=== PATIENT | female | born 1940 | race Caucasian/White ===

== ENCOUNTER 2018-09-20 13:29 | Inpatient (IN) | payer MEDICARE, SELFPAY ==
[2018-09-20] VITALS (20 sets, daily range): BP systolic 128–157; BP diastolic 60–102; PULSE 90–154; RESP 13–22; TEMP 36.1–36.3; O2SAT 95–98; BMI 30.6; BMI 30.8
--- NOTE | 2018-09-20 14:17 | PC.NURSE ---
just moved, diet changed, reports, after eating developes esophagus pain, worsen when laying down, sxs for 3-4 days. went to doctor, noted her heart rate 140's sent to er. at this time, pain free, denies sxs at this time +abdominal distentions. denies nausea or vomiting. has been taking claritin D.
--- NOTE | 2018-09-20 14:27 | DI.RAD.S_ITS ---
PROCEDURE: XR ACUTE ABDOMEN SERIES INDICATIONS: afib with rvr, epigastric pain after food regularly TECHNIQUE: One view chest and two views of the abdomen were acquired. COMPARISON: None. FINDINGS: Surgical changes and devices: Bilateral hip arthroplasties. Chest: Lungs are clear. Minimal increased pulmonary vascularity. Heart size is enlarged. Trace pleural effusions. No pneumoperitoneum. Abdomen: Bowel gas pattern is normal. No suspicious calcifications. Visualized solid organ contours appear normal. Bones: No suspicious bony lesions. IMPRESSION: No acute abdominal process. Minimal increased pulmonary vascularity is noted suggestive of edema. Dictated by: Yohana Haile M.D. on 09/20/2018 at 15:31 Approved by: Yohana Haile M.D. on 09/20/2018 at 15:32
--- NOTE | 2018-09-20 14:30 | ED.ARRPALP ---
HPI - Arrhythmia/Palpitations General Chief Complaint: Arrhythmia/Palpitations Stated Complaint: Digestive problems, stomach bloating Time Seen by Provider: 09/20/18 14:05 Source: patient and family () Mode of arrival: wheelchair (sent from walk-in clinic) Limitations: no limitations History of Present Illness HPI narrative: 77-year-old female comes with complaint of digestive problems. Patient states that she has been having bloating and epigastric discomfort that sometimes radiates to her back patient states that she has not had any nausea or vomiting she denies any chills or sweats. She does sometimes feel short of breath while she is sleeping and has to sit up which makes her symptoms feel better. She states that the epigastric discomfort prior to radiates up and she says it feels like heartburn. Patient states it typically happens after food patient denies any chest pressure currently or pain. She states she has had some mild constipation but having bowel movements, she denies any issues with urination denies any swelling in her lower extremities. She has her weight has been a little bit up. Patient states she has known arthritis, she had an episode of AFib about a year ago and was hospitalized for a couple days, she was told that it resolved while in the hospital. She was taking too much Claritin D and they suspected that was the cause of her atrial fibrillation. She denies any hypertension, dyslipidemia or diabetes, she denies any other cardiac issues. She has had hip replacement x2, hysterectomy. Denies any tobacco, drinks 1 alcoholic drink daily she has decreased because she was having 2 or 3 but it made her symptoms worse. Denies any illicit. She is supposed to be establishing with Dr. Eaton as a PCP. She is supposed to follow-up with cardiology but has not since her hospital stay. Related Data Home Medications Medication Instructions Recorded Confirmed Headache Relief ([id number]) 1 packet PO PRN PRN 09/20/18 09/20/18 Vitamin C 1 tab PO DAILY 09/20/18 09/20/18 hydrocodone-acetaminophen 1 tab PO 1-2XD PRN 09/20/18 09/20/18 magnesium 1 tab PO DAILY 09/20/18 09/20/18 multivitamin 1 tab PO DAILY 09/20/18 09/20/18 potassium 1 tab PO DAILY 09/20/18 09/20/18 zolpidem 5 mg PO BEDTIME PRN 09/20/18 09/20/18 Allergies Allergy/AdvReac Type Severity Reaction Status Date / Time No Known Drug Allergies Allergy Verified 09/20/18 13:32 Review of Systems Review of Systems ROS Unobtainable: All systems reviewed & are unremarkable except as noted in HPI and below Constitutional Denies chills, Denies fever(s), Denies lethargy and Denies weakness Cardiovascular Reports chest pain (epigastric), Denies diaphoresis, Denies syncope, Denies irregular heart rhythm, Denies leg edema, Denies lightheadedness, Denies radiating jaw, neck or arm pain, Denies palpitations, Reports dyspnea, Denies dyspnea on exertion and Reports orthopnea (starts in middle of night, wakes up from sleep) Respiratory Denies change in phlegm color, Denies chest congestion, Denies cough, Denies excessive phlegm production, Reports dyspnea and Denies dyspnea on exertion Gastrointestinal Gastrointestinal: Reports abdominal pain (epigastric), Denies melena, Reports bloating, Denies hematochezia, Denies change in bowel habits, Reports constipation (mild, having BM's.), Denies early satiety, Reports heartburn, Denies diarrhea, Denies nausea and Denies vomiting Genitourinary Denies hematuria, Denies dysuria and Denies urinary urgency Musculoskeletal Denies back pain Integumentary/Breasts Denies rash Neurologic Denies syncope and Denies weakness Endocrine Denies palpitations [facility] Medical History (Updated 09/20/18 @ 18:18 by Luis Alberto Schaefer MD) Atrial fibrillation (Chronic) Chronic headaches (Chronic) Congestive heart failure (CHF) (Chronic) H/O: hysterectomy (Chronic) Surgical History (Updated 09/20/18 @ 18:19 by Luis Alberto Schaefer MD) History of bilateral hip replacements (Resolved) History of hysterectomy (Resolved) Family History (Updated 09/20/18 @ 17:37 by Luis Alberto Schaefer MD) Mother No problems noted. Father Cancer Social History (Updated 09/20/18 @ 14:35 by Yasmine Parrish DO) marital status: Smoking Status: Unknown if ever smoked alcohol intake: current substance use type: does not use Family History (Updated 09/20/18 @ 17:37 by Luis Alberto Schaefer MD) Mother No problems noted. Father Cancer Social History (Updated 09/20/18 @ 14:35 by Yasmine Parrish DO) marital status: Smoking Status: Unknown if ever smoked alcohol intake: current substance use type: does not use Exam Narrative Exam Narrative: GENERAL: Alert and oriented x three, thin, well-appearing female in no acute distress. HEENT: Head normocephalic, atraumatic, EOMI, pupils reactive, face symmetric, moist mucous membranes NECK: Supple, full range of motion CARDIOVASCULAR: Tachycardic irregularly regular rate and rhythm without murmurs, rubs or gallops. No JVD. No swelling in lower extremities. 2+ pulses bilateral lower extremities. RESPIRATORY: Breath sounds equal bilaterally, no wheezes rales or rhonchi. ABDOMEN: Soft, nontender. Normoactive bowel sounds all 4 quadrants. No guarding or rebound, rigidity, no mass : No CVA tenderness EXTREMITIES: Normal range of motion, no clubbing or edema. Neurovascularly intact NEUROLOGICAL: Cranial nerves II through XII grossly intact. Moving all extremities SKIN: Warm, dry, no petechiae, no rashes or lesions. Initial Vital Signs Initial Vital Signs: Vital Signs Temperature 97.3 F L 09/20/18 13:32 Pulse Rate 154 H 09/20/18 13:32 Respiratory Rate 16 09/20/18 13:32 Blood Pressure 141/90 H 09/20/18 13:32 Pulse Oximetry 96 09/20/18 13:32 Scores CHADS-VASc Congestive heart failure: no Hypertension: no Age 75 years or older: yes Diabetes mellitus: no Stroke, TIA, or TE: no Vascular disease: no Age 65 to 74 years: no Sex category (female): Female CHADS-VASc Score: 3 Course Orders Ordered: ED Orders 09/20/18 13:40 EKG-12 Lead Stat EKG-12 Lead Stat 09/20/18 14:06 B Type Natriuretic Peptide Stat Complete Blood Count AUTO DIFF Stat Comprehensive Metabolic Panel Stat Lipase Stat Partial Thromboplastin Time Stat Prothrombin Time INR Stat Troponin & CK Cardiac Panel Stat 09/20/18 14:27 XR acute abdomen series Stat 09/20/18 17:21 Education, smoking cessation ONGOING 09/20/18 17:25 Thyroid Stimulating Hormone Stat 09/20/18 17:27 Magnesium Stat 09/21/18 Troponin I Routine 09/21/18 17:23 Complete Blood Count AUTO DIFF Stat Comprehensive Metabolic Panel Stat 09/21/18 17:26 EC echo doppler complete Urgent DILTIAZEM (Diltiazem 125 Mg/125 Ml-D5w) 125 mg in 125 mls @ 5 mls/hr IV TITRATE PAUL; Protocol Last Titration: 09/20/18 17:36 Dose: 10 mg/hr, 10 mls/hr Titration: 09/20/18 16:29 Dose: 10 mg/hr, 10 mls/hr Admin: 09/20/18 14:54 Dose: 5 mg/hr, 5 mls/hr Zolpidem Tartrate (Ambien) 5 mg PO BEDTIME PRN PRN Reason: Sleep Discontinued Medications Diltiazem HCl (Cardizem) 10 mg IV NOW ONE Stop: 09/20/18 14:28 Last Admin: 09/20/18 14:33 Dose: 10 mg Sodium Chloride (Normal Saline 0.9%) 1,000 mls @ 1,000 mls/hr IV BOLUS ONE Stop: 09/20/18 15:29 Last Infusion: 09/20/18 15:49 Dose: 0 mls/hr Admin: 09/20/18 14:33 Dose: 1,000 mls/hr Pantoprazole Sodium (Protonix) 20 mg PO NOW ONE Stop: 09/20/18 17:26 Vital Signs - 8 hr 09/20/18 13:32 09/20/18 14:00 09/20/18 14:02 Temperature 97.3 F L Pulse Rate 154 H 139 H 128 H Respiratory Rate 16 17 22 Blood Pressure 141/90 H Blood Pressure [Left Arm] 136/95 H 141/102 H Pulse Oximetry 96 97 97 09/20/18 14:33 09/20/18 14:41 09/20/18 15:18 Temperature Pulse Rate 140 H 129 H 120 H Respiratory Rate 13 16 Blood Pressure 132/97 H Blood Pressure [Left Arm] 135/84 140/102 H Pulse Oximetry 95 96 09/20/18 15:38 09/20/18 16:45 09/20/18 17:59 Temperature 97.0 F L Pulse Rate 116 H 112 H 114 H Respiratory Rate 18 19 20 Blood Pressure 157/82 H Blood Pressure [Left Arm] 138/89 139/99 H Pulse Oximetry 98 96 MDM - Arrhythmia/Palpitations Lab Data Attestation: I reviewed the patient's lab results. Result diagrams: 09/20/18 14:06 09/20/18 14:06 Lab Results 09/20/18 09/20/18 09/20/18 Range/Units 14:06 14:06 14:06 WBC 6.6 (4.5-11.0) X10^3/uL RBC 4.32 (4.0-5.2) X10^6/uL Hgb 13.3 (12.0-16.0) g/dL Hct 40.5 (36-46) % MCV 93.8 (80-100) fL MCH 30.8 (26-34) PG MCHC 32.8 (30-36) % RDW 14.8 (11.6-14.8) % Plt Count 303 (150-400) X10^3/uL Neut % (Auto) 59.9 (50-75) % Lymph % (Auto) 26.9 (25-40) % Collin % (Auto) 9.4 (3-14) % Eos % (Auto) 2.7 (2-4) % Baso % (Auto) 1.1 (0-2) % Neut # (Auto) 3900 (5584-3311) /uL Lymph # (Auto) 1800 (0888-4029) /uL Collin # (Auto) 600 (0-900) /uL Eos # (Auto) 200 (0-450) /uL Baso # (Auto) 100 (0-100) /uL PT 13.2 H (10.1-12.7) SECONDS INR 1.1 (0.9-1.3) APTT 31 (26.4-36.2) SECONDS Sodium 139 (137-145) mmol/L Potassium 4.0 (3.4-5.1) mmol/L Chloride 108 H (98-107) mmol/L Carbon Dioxide 22 (22-32) mmol/L BUN 19 H (7-17) mg/dL Creatinine 0.90 (0.52-1.04) mg/dL Estimated GFR > 60.0 (>60) mL/min BUN/Creatinine Ratio 21.1 (6-22) Glucose 100 (80-110) mg/dL Calcium 9.2 (8.4-10.2) mg/dL Total Bilirubin 0.9 (0.2-1.3) mg/dL AST 56 H (14-36) IU/L ALT 90 H (9-52) IU/L Alkaline Phosphatase 102 (38-126) U/L Total Creatine Kinase 265 H (30-135) U/L CK-MB (CK-2) 1.91 (<2.37) ng/mL CK-MB (CK-2) Rel Index 0.7 L (1.5-5.0) % Troponin I < 0.012 (0.01-0.034) ng/mL B-Natriuretic Peptide (<100) Total Protein 7.0 (6.3-8.2) g/dL Albumin 4.0 (3.5-5.0) g/dL Globulin 3.0 (1.7-4.1) g/dL Albumin/Globulin Ratio 1.3 (1.0-2.8) Lipase 23 (23-300) U/L /18/19 Range/Units 14:06 WBC (4.5-11.0) X10^3/uL RBC (4.0-5.2) X10^6/uL Hgb (12.0-16.0) g/dL Hct (36-46) % MCV (80-100) fL MCH (26-34) PG MCHC (30-36) % RDW (11.6-14.8) % Plt Count (150-400) X10^3/uL Neut % (Auto) (50-75) % Lymph % (Auto) (25-40) % Collin % (Auto) (3-14) % Eos % (Auto) (2-4) % Baso % (Auto) (0-2) % Neut # (Auto) (9050-2765) /uL Lymph # (Auto) (6142-8850) /uL Collin # (Auto) (0-900) /uL Eos # (Auto) (0-450) /uL Baso # (Auto) (0-100) /uL PT (10.1-12.7) SECONDS INR (0.9-1.3) APTT (26.4-36.2) SECONDS Sodium (137-145) mmol/L Potassium (3.4-5.1) mmol/L Chloride (98-107) mmol/L Carbon Dioxide (22-32) mmol/L BUN (7-17) mg/dL Creatinine (0.52-1.04) mg/dL Estimated GFR (>60) mL/min BUN/Creatinine Ratio (6-22) Glucose (80-110) mg/dL Calcium (8.4-10.2) mg/dL Total Bilirubin (0.2-1.3) mg/dL AST (14-36) IU/L ALT (9-52) IU/L Alkaline Phosphatase (38-126) U/L Total Creatine Kinase (30-135) U/L CK-MB (CK-2) (<2.37) ng/mL CK-MB (CK-2) Rel Index (1.5-5.0) % Troponin I (0.01-0.034) ng/mL B-Natriuretic Peptide 408 H (<100) Total Protein (6.3-8.2) g/dL Albumin (3.5-5.0) g/dL Globulin (1.7-4.1) g/dL Albumin/Globulin Ratio (1.0-2.8) Lipase (23-300) U/L Urine Dip Bedside Urine Glucose Negative Bedside Urine Bilirubin - Negative Bedside Urine Ketone +/- 5 Urine Specific Goodrich 1.020 Bedside Urine Occult Blood - Negative Bedside Urine pH 5.5 Bedside Urine Protein - Negative Bedside Urine Urobilinogen - Negative Bedside Urine Nitrite - Negative Bedside Urine Leukocytes - Negative Esterase Imaging Data Acute abdominal x-ray: Radiologist's impression: Chart [facility] Diagn[facility] DATE TYPE STATUS AUTHOR Hx 09/20/18 14:27 Yohana Haile Vanita Harveyleen 77, [id number] REG ER, ED.LOC - Main ED: R10 165.1cm 83.461kg BMI: 30.6kg/m? Arrhythmia/Palpitations Search Chart No Data to Display ONSET Today 15:38 Dagmar Harvey 77 F [address] [address] XRay Report Signed Patient: Dagmar HarveyMR#: [id number] : 1940cct:[id number] Age/Sex: 77 / FDate of Service: 09/20/18 Loc: ED Accession Number: [id number] Procedure: XR acute abdomen series Ordering Provider: Yasmine Parrish D.O. PROCEDURE: XR ACUTE ABDOMEN SERIES INDICATIONS: afib with rvr, epigastric pain after food regularly TECHNIQUE: One view chest and two views of the abdomen were acquired. COMPARISON: None. FINDINGS: Surgical changes and devices: Bilateral hip arthroplasties. Chest: Lungs are clear. Minimal increased pulmonary vascularity. Heart size is enlarged. Trace pleural effusions. No pneumoperitoneum. Abdomen: Bowel gas pattern is normal. No suspicious calcifications. Visualized solid organ contours appear normal. Bones: No suspicious bony lesions. IMPRESSION: No acute abdominal process. Minimal increased pulmonary vascularity is noted suggestive of edema. Dictated by: Yohana Haile M.D. on 09/20/2018 at 15:31 Approved by: Yohana Haile M.D. on 09/20/2018 at 15:32 ECG Data Attestation: I personally reviewed and interpreted this ECG as follows: Prior ECG tracings: not available for review Interpretation: AFib with rapid ventricular response, rate of 143 QRS 89 QTC of 383. No ST elevation appreciated. Mild depression in lateral leads. No prior EKG available. MDM Narrative Medical decision making narrative: Attempting to obtain records from [facility], I suspect patient's symptoms are related to paroxysmal a fib although she may have 2 separate issues with her atrial fibrillation and abdominal issues. Patient was not aware that she was in AFib so she is not a candidate for cardioversion if she is not anticoagulated. She did states that she has been taking a lot of headache medications some sort of good he has powders which have aspirin in them and caffeine. She sometimes takes these 2-3 times daily. Patient continues to be slightly elevated even on Cardizem drip. Patient's lab work otherwise does not show major abnormalities. She has not been hypotensive. I spoke with Dr. Schaefer who accepts for admission. BNP is slightly elevated. Troponin is negative. acute abdominal series is negative. Patient does not appear fluid overloaded on physical exam. Discharge Plan Departure Patient Disposition: Admitted As Inpatient Clinical Impression: Atrial fibrillation with rapid ventricular response Discharge Date/Time: 09/20/18 17:36 Interventions: ED Discharge Assessment Last Done: 09/20/18 17:36 Admit Date/Time: 09/20/18 16:34 Admit Provider: Luis Alberto Schaefer
[2018-09-20] MEDS: SODIUM CHLORIDE 0.9% 1,000 ML 1000 ML IV (14:33)
[2018-09-20] MEDS: dilTIAZem 5 MG/ML SDV 10 MG IV (14:33)
--- NOTE | 2018-09-20 14:38 | ED_ITS ---
HPI - Arrhythmia/Palpitations General Chief Complaint: Arrhythmia/Palpitations Stated Complaint: Digestive problems, stomach bloating Time Seen by Provider: 09/20/18 14:05 Source: patient and family () Mode of arrival: wheelchair (sent from walk-in clinic) Limitations: no limitations History of Present Illness HPI narrative: 77-year-old female comes with complaint of digestive problems. Patient states that she has been having bloating and epigastric discomfort that sometimes radiates to her back patient states that she has not had any nausea or vomiting she denies any chills or sweats. She does sometimes feel short of breath while she is sleeping and has to sit up which makes her symptoms feel better. She states that the epigastric discomfort prior to radiates up and she says it feels like heartburn. Patient states it typically happens after food patient denies any chest pressure currently or pain. She states she has had some mild constipation but having bowel movements, she denies any issues with urination denies any swelling in her lower extremities. She has her weight has been a little bit up. Patient states she has known arthritis, she had an episode of AFib about a year ago and was hospitalized for a couple days, she was told that it resolved while in the hospital. She was taking too much Claritin D and they suspected that was the cause of her atrial fibrillation. She denies any hypertension, dyslipidemia or diabetes, she denies any other cardiac issues. She has had hip replacement x2, hysterectomy. Denies any tobacco, drinks 1 alcoholic drink daily she has decreased because she was having 2 or 3 but it made her symptoms worse. Denies any illicit. She is supposed to be establishing with Dr. Eaton as a PCP. She is supposed to follow-up with cardiology but has not since her hospital stay. Related Data Home Medications Medication Instructions Recorded Confirmed Headache Relief ([id number]) 1 packet PO PRN PRN 09/20/18 09/20/18 Vitamin C 1 tab PO DAILY 09/20/18 09/20/18 hydrocodone-acetaminophen 1 tab PO 1-2XD PRN 09/20/18 09/20/18 magnesium 1 tab PO DAILY 09/20/18 09/20/18 multivitamin 1 tab PO DAILY 09/20/18 09/20/18 potassium 1 tab PO DAILY 09/20/18 09/20/18 zolpidem 5 mg PO BEDTIME PRN 09/20/18 09/20/18 Allergies Allergy/AdvReac Type Severity Reaction Status Date / Time No Known Drug Allergies Allergy Verified 09/20/18 13:32 Review of Systems Review of Systems ROS Unobtainable: All systems reviewed & are unremarkable except as noted in HPI and below Constitutional Denies chills, Denies fever(s), Denies lethargy and Denies weakness Cardiovascular Reports chest pain (epigastric), Denies diaphoresis, Denies syncope, Denies irregular heart rhythm, Denies leg edema, Denies lightheadedness, Denies radiating jaw, neck or arm pain, Denies palpitations, Reports dyspnea, Denies dyspnea on exertion and Reports orthopnea (starts in middle of night, wakes up from sleep) Respiratory Denies change in phlegm color, Denies chest congestion, Denies cough, Denies excessive phlegm production, Reports dyspnea and Denies dyspnea on exertion Gastrointestinal Gastrointestinal: Reports abdominal pain (epigastric), Denies melena, Reports bloating, Denies hematochezia, Denies change in bowel habits, Reports constipation (mild, having BM's.), Denies early satiety, Reports heartburn, Denies diarrhea, Denies nausea and Denies vomiting Genitourinary Denies hematuria, Denies dysuria and Denies urinary urgency Musculoskeletal Denies back pain Integumentary/Breasts Denies rash Neurologic Denies syncope and Denies weakness Endocrine Denies palpitations [facility] Medical History (Updated 09/20/18 @ 18:18 by Luis Alberto Schaefer MD) Atrial fibrillation (Chronic) Chronic headaches (Chronic) Congestive heart failure (CHF) (Chronic) H/O: hysterectomy (Chronic) Surgical History (Updated 09/20/18 @ 18:19 by Luis Alberto Schaefer MD) History of bilateral hip replacements (Resolved) History of hysterectomy (Resolved) Family History (Updated 09/20/18 @ 17:37 by Luis Alberto Schaefer MD) Mother No problems noted. Father Cancer Social History (Updated 09/20/18 @ 14:35 by Yasmine Parrish DO) marital status: Smoking Status: Unknown if ever smoked alcohol intake: current substance use type: does not use Family History (Updated 09/20/18 @ 17:37 by Luis Alberto Schaefer MD) Mother No problems noted. Father Cancer Social History (Updated 09/20/18 @ 14:35 by Yasmine Parrish DO) marital status: Smoking Status: Unknown if ever smoked alcohol intake: current substance use type: does not use Exam Narrative Exam Narrative: GENERAL: Alert and oriented x three, thin, well-appearing female in no acute distress. HEENT: Head normocephalic, atraumatic, EOMI, pupils reactive, face symmetric, moist mucous membranes NECK: Supple, full range of motion CARDIOVASCULAR: Tachycardic irregularly regular rate and rhythm without murmurs, rubs or gallops. No JVD. No swelling in lower extremities. 2+ pulses bilateral lower extremities. RESPIRATORY: Breath sounds equal bilaterally, no wheezes rales or rhonchi. ABDOMEN: Soft, nontender. Normoactive bowel sounds all 4 quadrants. No guardin g or rebound, rigidity, no mass : No CVA tenderness EXTREMITIES: Normal range of motion, no clubbing or edema. Neurovascularly intact NEUROLOGICAL: Cranial nerves II through XII grossly intact. Moving all extremities SKIN: Warm, dry, no petechiae, no rashes or lesions. Initial Vital Signs Initial Vital Signs: Vital Signs Temperature 97.3 F L 09/20/18 13:32 Pulse Rate 154 H 09/20/18 13:32 Respiratory Rate 16 09/20/18 13:32 Blood Pressure 141/90 H 09/20/18 13:32 Pulse Oximetry 96 09/20/18 13:32 Scores CHADS-VASc Congestive heart failure: no Hypertension: no Age 75 years or older: yes Diabetes mellitus: no Stroke, TIA, or TE: no Vascular disease: no Age 65 to 74 years: no Sex category (female): Female CHADS-VASc Score: 3 Course Orders Ordered: ED Orders 09/20/18 13:40 EKG-12 Lead Stat EKG-12 Lead Stat 09/20/18 14:06 B Type Natriuretic Peptide Stat Complete Blood Count AUTO DIFF Stat Comprehensive Metabolic Panel Stat Lipase Stat Partial Thromboplastin Time Stat Prothrombin Time INR Stat Troponin & CK Cardiac Panel Stat 09/20/18 14:27 XR acute abdomen series Stat 09/20/18 17:21 Education, smoking cessation ONGOING 09/20/18 17:25 Thyroid Stimulating Hormone Stat 09/20/18 17:27 Magnesium Stat 09/21/18 Troponin I Routine 09/21/18 17:23 Complete Blood Count AUTO DIFF Stat Comprehensive Metabolic Panel Stat 09/21/18 17:26 EC echo doppler complete Urgent DILTIAZEM (Diltiazem 125 Mg/125 Ml-D5w) 125 mg in 125 mls @ 5 mls/hr IV TITRATE PAUL; Protocol Last Titration: 09/20/18 17:36 Dose: 10 mg/hr, 10 mls/hr Titration: 09/20/18 16:29 Dose: 10 mg/hr, 10 mls/hr Admin: 09/20/18 14:54 Dose: 5 mg/hr, 5 mls/hr Zolpidem Tartrate (Ambien) 5 mg PO BEDTIME PRN PRN Reason: Sleep Discontinued Medications Diltiazem HCl (Cardizem) 10 mg IV NOW ONE Stop: 09/20/18 14:28 Last Admin: 09/20/18 14:33 Dose: 10 mg Sodium Chloride (Normal Saline 0.9%) 1,000 mls @ 1,000 mls/hr IV BOLUS ONE Stop: 09/20/18 15:29 Last Infusion: 09/20/18 15:49 Dose: 0 mls/hr Admin: 09/20/18 14:33 Dose: 1,000 mls/hr Pantoprazole Sodium (Protonix) 20 mg PO NOW ONE Stop: 09/20/18 17:26 Vital Signs - 8 hr 09/20/18 13:32 09/20/18 14:00 09/20/18 14:02 Temperature 97.3 F L Pulse Rate 154 H 139 H 128 H Respiratory Rate 16 17 22 Blood Pressure 141/90 H Blood Pressure [Left Arm] 136/95 H 141/102 H Pulse Oximetry 96 97 97 09/20/18 14:33 09/20/18 14:41 09/20/18 15:18 Temperature Pulse Rate 140 H 129 H 120 H Respiratory Rate 13 16 Blood Pressure 132/97 H Blood Pressure [Left Arm] 135/84 140/102 H Pulse Oximetry 95 96 09/20/18 15:38 09/20/18 16:45 09/20/18 17:59 Temperature 97.0 F L Pulse Rate 116 H 112 H 114 H Respiratory Rate 18 19 20 Blood Pressure 157/82 H Blood Pressure [Left Arm] 138/89 139/99 H Pulse Oximetry 98 96 MDM - Arrhythmia/Palpitations Lab Data Attestation: I reviewed the patient's lab results. Result diagrams: 09/20/18 14:06 09/20/18 14:06 Lab Results 09/20/18 09/20/18 09/20/18 Range/Units 14:06 14:06 14:06 WBC 6.6 (4.5-11.0) X10^3/uL RBC 4.32 (4.0-5.2) X10^6/uL Hgb 13.3 (12.0-16.0) g/dL Hct 40.5 (36-46) % MCV 93.8 (80-100) fL MCH 30.8 (26-34) PG MCHC 32.8 (30-36) % RDW 14.8 (11.6-14.8) % Plt Count 303 (150-400) X10^3/uL Neut % (Auto) 59.9 (50-75) % Lymph % (Auto) 26.9 (25-40) % [place] % (Auto) 9.4 (3-14) % Eos % (Auto) 2.7 (2-4) % Baso % (Auto) 1.1 (0-2) % Neut # (Auto) 3900 (1035-5891) /uL Lymph # (Auto) 1800 (5762-9563) /uL [place] # (Auto) 600 (0-900) /uL Eos # (Auto) 200 (0-450) /uL Baso # (Auto) 100 (0-100) /uL PT 13.2 H (10.1-12.7) SECONDS INR 1.1 (0.9-1.3) APTT 31 (26.4-36.2) SECONDS Sodium 139 (137-145) mmol/L Potassium 4.0 (3.4-5.1) mmol/L Chloride 108 H (98-107) mmol/L Carbon Dioxide 22 (22-32) mmol/L BUN 19 H (7-17) mg/dL Creatinine 0.90 (0.52-1.04) mg/dL Estimated GFR > 60.0 (>60) mL/min BUN/Creatinine Ratio 21.1 (6-22) Glucose 100 (80-110) mg/dL Calcium 9.2 (8.4-10.2) mg/dL Total Bilirubin 0.9 (0.2-1.3) mg/dL AST 56 H (14-36) IU/L ALT 90 H (9-52) IU/L Alkaline Phosphatase 102 (38-126) U/L Total Creatine Kinase 265 H (30-135) U/L CK-MB (CK-2) 1.91 (<2.37) ng/mL CK-MB (CK-2) Rel Index 0.7 L (1.5-5.0) % Troponin I < 0.012 (0.01-0.034) ng/mL B-Natriuretic Peptide (<100) Total Protein 7.0 (6.3-8.2) g/dL Albumin 4.0 (3.5-5.0) g/dL Globulin 3.0 (1.7-4.1) g/dL Albumin/Globulin Ratio 1.3 (1.0-2.8) Lipase 23 (23-300) U/L /18/19 Range/Units 14:06 WBC (4.5-11.0) X10^3/uL RBC (4.0-5.2) X10^6/uL Hgb (12.0-16.0) g/dL Hct (36-46) % MCV (80-100) fL MCH (26-34) PG MCHC (30-36) % RDW (11.6-14.8) % Plt Count (150-400) X10^3/uL Neut % (Auto) (50-75) % Lymph % (Auto) (25-40) % [place] % (Auto) (3-14) % Eos % (Auto) (2-4) % Baso % (Auto) (0-2) % Neut # (Auto) (7165-2677) /uL Lymph # (Auto) (8560-4148) /uL [place] # (Auto) (0-900) /uL Eos # (Auto) (0-450) /uL Baso # (Auto) (0-100) /uL PT (10.1-12.7) SECONDS INR (0.9-1.3) APTT (26.4-36.2) SECONDS Sodium (137-145) mmol/L Potassium (3.4-5.1) mmol/L Chloride (98-107) mmol/L Carbon Dioxide (22-32) mmol/L BUN (7-17) mg/dL Creatinine (0.52-1.04) mg/dL Estimated GFR (>60) mL/min BUN/Creatinine Ratio (6-22) Glucose (80-110) mg/dL Calcium (8.4-10.2) mg/dL Total Bilirubin (0.2-1.3) mg/dL AST (14-36) IU/L ALT (9-52) IU/L Alkaline Phosphatase (38-126) U/L Total Creatine Kinase (30-135) U/L CK-MB (CK-2) (<2.37) ng/mL CK-MB (CK-2) Rel Index (1.5-5.0) % Troponin I (0.01-0.034) ng/mL B-Natriuretic Peptide 408 H (<100) Total Protein (6.3-8.2) g/dL Albumin (3.5-5.0) g/dL Globulin (1.7-4.1) g/dL Albumin/Globulin Ratio (1.0-2.8) Lipase (23-300) U/L Urine Dip Bedside Urine Glucose Negative Bedside Urine Bilirubin - Negative Bedside Urine Ketone +/- 5 Urine Specific [place] 1.020 Bedside Urine Occult Blood - Negative Bedside Urine pH 5.5 Bedside Urine Protein - Negative Bedside Urine Urobilinogen - Negative Bedside Urine Nitrite - Negative Bedside Urine Leukocytes - Negative Esterase Imaging Data Acute abdominal x-ray: Radiologist's impression: Chart [facility] Diagn[facility] DATE TYPE STATUS AUTHOR Hx 09/20/18 14:27 Yohana Haile Vanita Harveyleen 77, [id number] REG ER, ED.LOC - Main ED: R10 165.1cm 83.461kg BMI: 30.6kg/m? Arrhythmia/Palpitations Search Chart No Data to Display ONSET Today 15:38 Dagmar Harvey 77 F [address] [address] XRay Report Signed Patient: Dagmar HarveyMR#: [id number] : 1940cct:[id number] Age/Sex: 77 / FDate of Service: 09/20/18 Loc: ED Accession Number: [id number] Procedure: XR acute abdomen series Ordering Provider: Yasmine Parrish D.O. PROCEDURE: XR ACUTE ABDOMEN SERIES INDICATIONS: afib with rvr, epigastric pain after food regularly TECHNIQUE: One view chest and two views of the abdomen were acquired. COMPARISON: None. FINDINGS: Surgical changes and devices: Bilateral hip arthroplasties. Chest: Lungs are clear. Minimal increased pulmonary vascularity. Heart size is enlarged. Trace pleural effusions. No pneumoperitoneum. Abdomen: Bowel gas pattern is normal. No suspicious calcifications. Visualized solid organ contours appear normal. Bones: No suspicious bony lesions. IMPRESSION: No acute abdominal process. Minimal increased pulmonary vascularity is noted suggestive of edema. Dictated by: Yohana Haile M.D. on 09/20/2018 at 15:31 Approved by: Yohana Haile M.D. on 09/20/2018 at 15:32 ECG Data Attestation: I personally reviewed and interpreted this ECG as follows: Prior ECG tracings: not available for review Interpretation: AFib with rapid ventricular response, rate of 143 QRS 89 QTC of 383. No ST elevation appreciated. Mild depression in lateral leads. No prior EKG available. MDM Narrative Medical decision making narrative: Attempting to obtain records from [facility], I suspect patient's symptoms are related to paroxysmal a fib although she may have 2 separate issues with her atrial fibrillation and abdominal issues. Patient was not aware that she was in AFib so she is not a candidate for cardioversion if she is not anticoagulated. She did states that she has been taking a lot of headache medications some sort of good he has powders which have aspirin in them and caffeine. She sometimes takes these 2-3 times daily. Patient continues to be slightly elevated even on Cardizem drip. Patient's lab work otherwise does not show major abnormalities. She has not been hypotensive. I spoke with Dr. Schaefer who accepts for admission. BNP is slightly elevated. Troponin is negative. acute abdominal series is negative. Patient does not appear fluid overloaded on physical exam. Discharge Plan Departure Patient Disposition: Admitted As Inpatient Clinical Impression: Atrial fibrillation with rapid ventricular response Discharge Date/Time: 09/20/18 17:36 Interventions: ED Discharge Assessment Last Done: 09/20/18 17:36 Admit Date/Time: 09/20/18 16:34 Admit Provider: Luis Alberto Schaefer
[2018-09-20 14:40] LABS: Add Manual Diff / Slide Review NO; Basophils Absolute Auto 100 /uL (0-100); Basophils Percent Auto 1.1 % (0-2); Eosinophils Absolute Auto 200 /uL (0-450); Eosinophils Percent Auto 2.7 % (2-4); Hematocrit 40.5 % (36-46); Hemoglobin 13.3 g/dL (12.0-16.0); Lymphocytes Absolute Auto 1800 /uL (1100-4500); Lymphocytes Percent Auto 26.9 % (25-40); Mean Corpuscular HGB Conc 32.8 % (30-36); Mean Corpuscular Hemoglobin 30.8 PG (26-34); Mean Corpuscular Volume 93.8 fL (80-100); Monocytes Absolute Auto 600 /uL (0-900); Monocytes Percent Auto 9.4 % (3-14); Neutrophils Absolute Auto 3900 /uL (1500-7000); Neutrophils Percent Auto 59.9 % (50-75); Platelet Count 303 X10^3/uL (150-400); Red Blood Cell Count 4.32 X10^6/uL (4.0-5.2); Red Cell Distribution Width 14.8 % (11.6-14.8); White Blood Cell Count 6.6 X10^3/uL (4.5-11.0)
[2018-09-20 14:42] LABS: INR 1.1 (0.9-1.3); Prothrombin Time 13.2 SECONDS (10.1-12.7)
[2018-09-20 14:45] LABS: PTT Partial Thromboplastin Tim 31 SECONDS (26.4-36.2)
[2018-09-20 14:51] LABS: Alanine Aminotransferase 90 IU/L (9-52); Albumin Globulin Ratio 1.3 (1.0-2.8); Alkaline Phosphatase 102 U/L (38-126); Aspartate Aminotransferase 56 IU/L (14-36); BUN Creatinine Ratio 21.1 (6-22); Bilirubin Total 0.9 mg/dL (0.2-1.3); Blood Urea Nitrogen 19 mg/dL (7-17); Calcium 9.2 mg/dL (8.4-10.2); Carbon Dioxide 22 mmol/L (22-32); Chloride 108 mmol/L (98-107); Creatine Kinase 265 U/L (30-135); Estimated Glomerular Filt Rate > 60.0 mL/min (>60); Glucose 100 mg/dL (80-110); HEMOLYSIS < 15 (0-50); Lipase 23 U/L (23-300); Sodium 139 mmol/L (137-145)
[2018-09-20] MEDS: DILTIAZEM 125 MG/125 ML PIGGYBACK IV (14:54)
[2018-09-20 15:00] LABS: B Type Natriuretic Peptide 408 (<100)
[2018-09-20 15:02] LABS: Troponin I < 0.012 ng/mL (0.01-0.034)
--- NOTE | 2018-09-20 15:16 | PC.NURSE ---
bc headache powder took 3 , yesterday, then heart racing.
[2018-09-20 15:19] LABS: CKMB % Relative Index 0.7 % (1.5-5.0); Creatine Kinase MB 1.91 ng/mL (<2.37)
--- NOTE | 2018-09-20 15:39 | PC.NURSE ---
continue recieving diltiazem drip at 5mg/hr via pump, along with normal saline
--- NOTE | 2018-09-20 17:28 | P.HP_ITS ---
History of Present Illness Date Patient Seen: 09/20/18 Time Patient Seen: 17:28 Chief complaint: Digestive problems, stomach bloating Narrative: Dagmar Chavarria is a 77 y/o F that presents to the ED after several days of stomach discomfort. The stomach discomfort [place] and is localized to the epigastrium/substernal region. She attributes the abdominal discomfort to poor dieting, a recent consumption of excess caffeine supplements, and additionally to her stressful lifestyle. The discomfort is increased after consumption of meals, though is generally present all the time. She says that the discomfort is difficult to qualify, but feels similar to having the flu. She decided to come in today due to an increase in symptoms over the last 24 hours. She is also acutely aware that she has back pain that has arisen during her stay in the ED. Current chest X ray has increased pulmonary markings suggestive of edema and an enlarged cardiac silhouette. Her EKG today could not be found in the online [facility] but was described as not showing any significant ischemic changes. She was hospitalized at [facility] on the February due to similar issues. Notes from the hospital state that she had acute systolic heart failure with an EF of 25-30%, dilated cardiomyopathy, Atrial fibrillation and a PE. Her records state that she was cardioverted during her stay. There was also mention of blood clots present in the [facility] so she was given Eliquis. She did not take the prescribed medications that were given to her, including anticoagulation, due to her great distrust in the medical system and believes that her condition can be managed naturally. LIZETTE guided cardioversion was done but AF returned that night. It is assumed from her memory/current attitude that the outpatient ischemia evaluation that was planned did not occur. Patient History Medical History (Updated 09/20/18 @ 18:18 by Luis Alberto Schaefer MD) Atrial fibrillation (Chronic) Chronic headaches (Chronic) Congestive heart failure (CHF) (Chronic) H/O: hysterectomy (Chronic) Surgical History (Updated 09/20/18 @ 18:19 by Luis Alberto Schaefer MD) History of bilateral hip replacements (Resolved) History of hysterectomy (Resolved) Family History (Updated 09/20/18 @ 17:37 by Luis Alberto Schaefer MD) Mother No problems noted. Father Cancer Social History (Updated 09/20/18 @ 14:35 by Yasmine Parrish DO) marital status: Smoking Status: Unknown if ever smoked alcohol intake: current substance use type: does not use Family & Social History Family History (Updated 09/20/18 @ 17:37 by Luis Alberto Schaefer MD) Mother No problems noted. 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 Her son lives in [facility]. PCP: Dr. Eaton at [facility] Safety & Behavioral: Feels Safe in Current Yes Environment Been Physically Hurt or No Threatened By a Person Tobacco & Substance use: Smoking Status None alcohol intake current, white wine daily alcohol intake frequency 0-2 drinks per day Substance Use Type does not use Comment: Power of workers compensation attorney: Jasvir Jrmiley () Meds Home Medications Medication Instructions Recorded Confirmed Type Headache Relief ([id number]) 1 packet PO PRN PRN 09/20/18 09/20/18 History Vitamin C 1 tab PO DAILY 09/20/18 09/20/18 History hydrocodone-acetaminophen 1 tab PO 1-2XD PRN 09/20/18 09/20/18 History magnesium 1 tab PO DAILY 09/20/18 09/20/18 History multivitamin 1 tab PO DAILY 09/20/18 09/20/18 History potassium 1 tab PO DAILY 09/20/18 09/20/18 History zolpidem 5 mg PO BEDTIME PRN 09/20/18 09/20/18 History Allergies Allergy/AdvReac Type Severity Reaction Status Date / Time No Known Drug Allergies Allergy Verified 09/20/18 13:32 Review of Systems Constitutional Constitutional: Denies chills, Denies excessive sweating, Denies fever(s), Reports headache(s) and Reports poor appetite Eyes Eyes: Denies change in vision ENT Ears, Nose, Mouth, and Throat: No abnormal hearing, Yes headache(s), No throat swelling and No tongue swelling Cardiovascular Cardiovascular: Denies chest pain, Denies chest pain at rest, Denies chest pain with activity, Denies foot swelling, Denies leg swelling, Denies radiating jaw, neck or arm pain and Denies shortness of breath Respiratory Respiratory: Denies chest congestion, Denies cough and Denies dyspnea Gastrointestinal Gastrointestinal: Reports abdominal pain, Denies loose stools, Reports nausea, Denies vomiting and Denies hematemesis Musculoskeletal Musculoskeletal: Reports back pain, Denies myalgias and Denies tingling Integumentary/Breasts Skin/Breast: Denies bleeding lesions, Denies erythema and Denies sores Neurologic Neurologic: Denies abnormal hearing, Reports headache(s), Denies seizure-like activity and Denies tingling Psychiatric Psychiatric: Reports anxiety Endocrine Endocrine: Denies excessive sweating Allergic/Immunologic Allergic/Immunologic: Denies throat swelling and Denies tongue swelling Exam Vital Signs (past 8 hours): - 09/20/18 13:32 09/20/18 14:00 09/20/18 14:02 Temperature 97.3 F L Pulse Rate 154 H 139 H 128 H Respiratory Rate 16 17 22 Blood Pressure 141/90 H Blood Pressure [Left Arm] 136/95 H 141/102 H Pulse Oximetry 96 97 97 09/20/18 14:33 09/20/18 14:41 09/20/18 15:18 Temperature Pulse Rate 140 H 129 H 120 H Respiratory Rate 13 16 Blood Pressure 132/97 H Blood Pressure [Left Arm] 135/84 140/102 H Pulse Oximetry 95 96 09/20/18 15:38 09/20/18 16:45 Temperature Pulse Rate 116 H 112 H Respiratory Rate 18 19 Blood Pressure Blood Pressure [Left Arm] 138/89 139/99 H Pulse Oximetry 98 Oxygen Delivery Method Room Air Const General: acute distress and anxious Nutritional Appearance: average body habitus Orientation: alert, awake and oriented x3 Other: Patient is easily flustered when talking about her medical history and family situation and skeptical about speaking to doctors. [facility] Head: normocephalic and atraumatic Ears: hearing grossly normal bilaterally and external ears normal Nose: external nose normal Face and sinus: normal facial exam Mouth: oral mucosae normal Teeth and gingiva: dentition normal Throat: posterior oropharynx normal Eyes General: appearance normal, both eyes and all related structures Alignment and Position: alignment normal Periorbital: periorbital findings normal Eyelids: eyelids normal Conjunctivae: conjunctivae normal Sclera: sclerae normal Cornea: corneas normal Pupils: PERRL EOM: EOM intact bilaterally Direct ophthalmoscopy: normal light reflex Neck Neck: normal visual inspection, full ROM, supple and No anterior neck swelling Thyroid: thyroid normal Lymphatic: No lymphedema Chest Chest: normal inspection of the chest, No mass and No tenderness Resp Effort & Inspection: normal respiratory effort, able to speak in complete sentences, no respiratory distress and not tachypneic Auscultation: clear to auscultation bilaterally Cardio Palpation: normal PMI Rate: regular rate Rhythm: abnormal rhythm irregularly irregular Heart Sounds: S1 normal and S2 normal GI Inspection: normal to inspection and non-distended Palpation: soft, hepatomegaly and tender (tender to palpation in all four quadrants) Auscultation: normal bowel sounds Back/Spine/Pelvis Back: normal to inspection Cervical Spine: normal cervical lordosis Thoracic/Lumbar Spine: thoracic and lumbar spine normal to inspection Skin General: no rashes or lesions noted and No jaundice Lesions: no lesions Rashes: no rashes Wounds: no wounds Hair: normal Nails: normal Neuro General: alert, awake and oriented x3 Cranial Nerves: CN's II-XI intact bilaterally, EOM intact bilaterally and tongue midline Cognition: normal cognition Speech: speech normal Extrem General: normal to inspection and no calf tenderness Right upper extremity: normal to inspection and normal capillary refill Left upper extremity: normal to inspection and normal capillary refill Right lower extremity: normal to inspection Left lower extremity: normal to inspection Other: No pedal edema noted on b/l lower extremities. Psych Appearance: grossly normal Mental Status: mental status grossly normal Speech and Movement: agitated and restless Mood: anxious mood, angry and irritable mood Attitude: other (Refuses to answer particular questions. She is guarded in her responses. ) Thought Process: normal Thought Content: normal Judgment: judgment good Objective Labs Result Diagrams: 09/20/18 14:06 09/20/18 14:06 Labs: Laboratory Results - last 24 hr 09/20/18 09/20/18 09/20/18 14:06 14:06 14:06 WBC 6.6 RBC 4.32 Hgb 13.3 Hct 40.5 MCV 93.8 MCH 30.8 MCHC 32.8 RDW 14.8 Plt Count 303 Neut % (Auto) 59.9 Lymph % (Auto) 26.9 [place] % (Auto) 9.4 Eos % (Auto) 2.7 Baso % (Auto) 1.1 Neut # (Auto) 3900 Lymph # (Auto) 1800 [place] # (Auto) 600 Eos # (Auto) 200 Baso # (Auto) 100 PT 13.2 H INR 1.1 APTT 31 Sodium 139 Potassium 4.0 Chloride 108 H Carbon Dioxide 22 BUN 19 H Creatinine 0.90 Estimated GFR > 60.0 BUN/Creatinine Ratio 21.1 Glucose 100 Calcium 9.2 Total Bilirubin 0.9 AST 56 H ALT 90 H Alkaline Phosphatase 102 Total Creatine Kinase 265 H CK-MB (CK-2) 1.91 CK-MB (CK-2) Rel Index 0.7 L Troponin I < 0.012 B-Natriuretic Peptide Total Protein 7.0 Albumin 4.0 Globulin 3.0 Albumin/Globulin Ratio 1.3 Lipase 23 09/20/18 14:06 WBC RBC Hgb Hct MCV MCH MCHC RDW Plt Count Neut % (Auto) Lymph % (Auto) [place] % (Auto) Eos % (Auto) Baso % (Auto) Neut # (Auto) Lymph # (Auto) [place] # (Auto) Eos # (Auto) Baso # (Auto) PT INR APTT Sodium Potassium Chloride Carbon Dioxide BUN Creatinine Estimated GFR BUN/Creatinine Ratio Glucose Calcium Total Bilirubin AST ALT Alkaline Phosphatase Total Creatine Kinase CK-MB (CK-2) CK-MB (CK-2) Rel Index Troponin I B-Natriuretic Peptide 408 H Total Protein Albumin Globulin Albumin/Globulin Ratio Lipase Assessment & Plan Assessment & Plan narrative: Atrial Fibrillation with RVR -Rate control will be continued tonight on a Diltiazem drip -She can probably be converted to oral beta blockers tomorrow -if not responding then she may need Amiodarone loading similar to what was given at [facility] last year. -TSH and Mg levels are pending -She has known cardiomyopathy and atrial clot on prior Afib admission to [facility] -Previous episode of CHF/Afib was thought to be mediated by tacchyarrythmia. With her high Caffeine intake (for migraines) that could be the case again. -Anticoagulate with Lovenox for now. Acute on Chronic Systolic Heart Failure -No significant shortness of breath despite the elevated BNP and the AF-RVR -Dilated Cardiomyopathy with EF of 25-30% last year. This was related to her tachyarrythmia of excess Pseudophedrine intake at that time. She is no longer using that but is using high dose caffeine. -Echocardiogram will be ordered for current status update. -Consider diuretic therapy -Rate control is essential for prevention of symptomatic CHF -her avoidance of cardiology follow up and home diuretic therapy is problematic. -Repeat Troponin in the morning. Elevated LFT -This is most likely a passive congestion response to CHF -Repeat CMP in the morning and consider further liver testing
[2018-09-20] MEDS: PANTOPRAZOLE 20 MG TABLET PO (18:29)
[2018-09-20 19:00] LABS: Magnesium 1.7 mg/dL (1.6-2.3)
[2018-09-20 19:57] LABS: Thyroid Stimulating Hormone 1.16 uIU/mL (0.47-4.68)
[2018-09-20] MEDS: HYDROCODONE/ACET 5/325 TABLET 1 TAB PO (20:11)
[2018-09-20] MEDS: MAGNESIUM SULFATE 2 GM/50 ML PIGGYBACK IV (20:11)
[2018-09-20] MEDS: ENOXAPARIN 80 MG/0.8 ML SYRINGE SUBCUT (20:12)
--- NOTE | 2018-09-20 21:12 | PC.NURSE ---
2100- Patient Hear rate mostly in mid 90's. Diltiazem gtt at 15ml/hr. Patient BP is stable. Patient has fine bibasilar crackles. Denies SOB at rest but is SOB with activity. Voiding using BSC. Magnesium rider up per order. Will monitor.
[2018-09-20] MEDS: ZOLPIDEM 5 MG TABLET PO (22:41)
[2018-09-21] VITALS (7 sets, daily range): BP systolic 116–151; BP diastolic 74–96; PULSE 72–102; RESP 16–22; TEMP 36.2; O2SAT 94–99
[2018-09-21] MEDS: DILTIAZEM 125 MG/125 ML PIGGYBACK 15 MG IV (00:25)
--- NOTE | 2018-09-21 00:51 | PC.NURSE ---
Pt with new persistent cough, unable to lie flat and mild SOB at rest. Lung sounds significant for fine crackles bilaterally. Elder BAORNE notified and updated on patient, orders for lasix received.
[2018-09-21] MEDS: FUROSEMIDE 40 MG/4 ML VIAL IV (00:54)
[2018-09-21] MEDS: HYDROCODONE/ACET 5/325 TABLET 1 TAB PO ×3 (03:00→16:08)
[2018-09-21 05:42] LABS: Magnesium 1.9 mg/dL (1.6-2.3)
[2018-09-21 06:14] LABS: Troponin I < 0.012 ng/mL (0.01-0.034)
[2018-09-21 07:03] LABS: Alanine Aminotransferase 77 IU/L (9-52); Albumin Globulin Ratio 1.4 (1.0-2.8); Alkaline Phosphatase 95 U/L (38-126); Aspartate Aminotransferase 46 IU/L (14-36); BUN Creatinine Ratio 25.7 (6-22); Bilirubin Total 0.8 mg/dL (0.2-1.3); Blood Urea Nitrogen 18 mg/dL (7-17); Calcium 9.2 mg/dL (8.4-10.2); Carbon Dioxide 25 mmol/L (22-32); Chloride 104 mmol/L (98-107); Estimated Glomerular Filt Rate > 60.0 mL/min (>60); Globulin 2.9 g/dL (1.7-4.1); Glucose 120 mg/dL (80-110); HEMOLYSIS < 15 (0-50); Potassium 3.5 mmol/L (3.4-5.1); Sodium 139 mmol/L (137-145); Total Protein 6.9 g/dL (6.3-8.2)
[2018-09-21] MEDS: METOPROLOL IR 25 MG TABLET PO (08:09)
[2018-09-21] MEDS: ACETAMINOPHEN 325 MG TABLET 650 MG PO (08:21)
[2018-09-21] MEDS: ENOXAPARIN 80 MG/0.8 ML SYRINGE SUBCUT (08:21)
--- NOTE | 2018-09-21 11:57 | P.DS_ITS ---
History of Present Illness Chief complaint: Digestive problems, stomach bloating Discharge Providers Date of admission: 09/20/18 16:34 Discharge Date: 09/21/18 Discharge provider: Abner Otoole MD Summary Discharge Diagnosis: One. Atrial fibrillation with rapid ventricular response 2. Chronic systolic heart failure with acute exacerbation Hospital Course: Patient admitted to the hospital with AFib with rapid urbano tricular response and acute systolic heart failure. Patient had been diagnosed a number of months ago awhile at [facility] with systolic heart failure ejection trach fraction 25% along with her atrial fibrillation. She had recently stopped all medications she became discouraged with taking medications and thought she would be better off without taking medications. This episode seems to be triggered by her stopping medications. She was treated with IV Lasix she also received some IV magnesium and she was placed on a diltiazem infusion and then switched to oral metoprolol. This morning she had her 1st dose of metoprolol was taken off the infusion and her heart rate is now about 70-80. The patient is refusing anticoagulation and repeat refusing most medications but I did convince her to take at least the metoprolol and lisinopril for the bare minimum of treating rate control and heart failure. She does have a follow-up with a local physician Dr. Eaton to establish with him and he can talk to her more about other treatments that might be needed for heart failure and anticoagulation for the AFib Status at Discharge Cognitive/behavioral status at discharge: at baseline, oriented Functional status at discharge: independent ambulation Overall status at discharge: patient is back to baseline Time Spent with Patient Greater than 30 minutes Exam Vital Signs (past 8 hours): - 09/21/18 08:00 09/21/18 08:15 Temperature 97.1 F L Pulse Rate 84 Respiratory Rate 16 Blood Pressure 151/74 H Pulse Oximetry 94 98 Oxygen Delivery Method Room Air Oxygen Flow Rate 0 Narrative Exam Narrative: She is awake alert conversant in no acute distress HEENT exam unremarkable Lungs are clear Heart irregular Abdomen soft nontender Extremities no edema Neuro exam unremarkable Objective Labs Result Diagrams: 09/20/18 14:06 09/21/18 05:00 Labs: Laboratory Results - last 24 hr 09/20/18 09/20/18 09/20/18 14:06 14:06 14:06 WBC 6.6 RBC 4.32 Hgb 13.3 Hct 40.5 MCV 93.8 MCH 30.8 MCHC 32.8 RDW 14.8 Plt Count 303 Neut % (Auto) 59.9 Lymph % (Auto) 26.9 [place] % (Auto) 9.4 Eos % (Auto) 2.7 Baso % (Auto) 1.1 Neut # (Auto) 3900 Lymph # (Auto) 1800 [place] # (Auto) 600 Eos # (Auto) 200 Baso # (Auto) 100 PT 13.2 H INR 1.1 APTT 31 Sodium 139 Potassium 4.0 Chloride 108 H Carbon Dioxide 22 BUN 19 H Creatinine 0.90 Estimated GFR > 60.0 BUN/Creatinine Ratio 21.1 Glucose 100 Calcium 9.2 Magnesium Total Bilirubin 0.9 AST 56 H ALT 90 H Alkaline Phosphatase 102 Total Creatine Kinase 265 H CK-MB (CK-2) 1.91 CK-MB (CK-2) Rel Index 0.7 L Troponin I < 0.012 B-Natriuretic Peptide Total Protein 7.0 Albumin 4.0 Globulin 3.0 Albumin/Globulin Ratio 1.3 Lipase 23 TSH Nasal Screen MRSA (PCR) 09/20/18 09/20/18 09/20/18 14:06 17:45 18:45 WBC RBC Hgb Hct MCV MCH MCHC RDW Plt Count Neut % (Auto) Lymph % (Auto) [place] % (Auto) Eos % (Auto) Baso % (Auto) Neut # (Auto) Lymph # (Auto) [place] # (Auto) Eos # (Auto) Baso # (Auto) PT INR APTT Sodium Potassium Chloride Carbon Dioxide BUN Creatinine Estimated GFR BUN/Creatinine Ratio Glucose Calcium Magnesium Total Bilirubin AST ALT Alkaline Phosphatase Total Creatine Kinase CK-MB (CK-2) CK-MB (CK-2) Rel Index Troponin I B-Natriuretic Peptide 408 H Total Protein Albumin Globulin Albumin/Globulin Ratio Lipase TSH 1.16 Nasal Screen MRSA (PCR) Negative for mrsa 09/20/18 09/21/18 09/21/18 18:45 05:00 05:00 WBC RBC Hgb Hct MCV MCH MCHC RDW Plt Count Neut % (Auto) Lymph % (Auto) [place] % (Auto) Eos % (Auto) Baso % (Auto) Neut # (Auto) Lymph # (Auto) [place] # (Auto) Eos # (Auto) Baso # (Auto) PT INR APTT Sodium Potassium Chloride Carbon Dioxide BUN Creatinine Estimated GFR BUN/Creatinine Ratio Glucose Calcium Magnesium 1.7 1.9 Total Bilirubin AST ALT Alkaline Phosphatase Total Creatine Kinase CK-MB (CK-2) CK-MB (CK-2) Rel Index Troponin I < 0.012 B-Natriuretic Peptide Total Protein Albumin Globulin Albumin/Globulin Ratio Lipase TSH Nasal Screen MRSA (PCR) 09/21/18 05:00 WBC RBC Hgb Hct MCV MCH MCHC RDW Plt Count Neut % (Auto) Lymph % (Auto) [place] % (Auto) Eos % (Auto) Baso % (Auto) Neut # (Auto) Lymph # (Auto) [place] # (Auto) Eos # (Auto) Baso # (Auto) PT INR APTT Sodium 139 Potassium 3.5 Chloride 104 Carbon Dioxide 25 BUN 18 H Creatinine 0.70 Estimated GFR > 60.0 BUN/Creatinine Ratio 25.7 H Glucose 120 H Calcium 9.2 Magnesium Total Bilirubin 0.8 AST 46 H ALT 77 H Alkaline Phosphatase 95 Total Creatine Kinase CK-MB (CK-2) CK-MB (CK-2) Rel Index Troponin I B-Natriuretic Peptide Total Protein 6.9 Albumin 4.0 Globulin 2.9 Albumin/Globulin Ratio 1.4 Lipase TSH Nasal Screen MRSA (PCR) Discharge Plan Discharge Plan Patient Disposition: Home Discharge Med Rec/Prescriptions Prescriptions: New lisinopril 5 mg Tablet 5 mg PO DAILY Qty: 30 RF: 4 metoprolol tartrate 25 mg Tablet 25 mg PO BID Qty: 60 RF: 4 Continued hydrocodone-acetaminophen 5-325 mg tablet 1 tab PO 1-2XD PRN (Reason: pain) RF: 0 zolpidem 5 mg tablet 5 mg PO BEDTIME PRN (Reason: Sleep) RF: 0 multivitamin Tablet 1 tab PO DAILY RF: 0 Headache Relief ([id number]) powder 1 packet PO PRN PRN (Reason: Headache) RF: 0 Vitamin C 1 tab PO DAILY RF: 0 magnesium 1 tab PO DAILY RF: 0 potassium 1 tab PO DAILY RF: 0 Follow up/Referrals: Dm Eaton MD [Physician] - 2 Weeks () Provider Discharge Instructions Diet: Diet as Tolerated Activity: as tolerated Visit Report/Discharge Packet Instructions: DI for Heart Failure, DI for Atrial Fibrillation Discharge Data Attending Provider: Luis Alberto Schaefer Admit Date/Time: 09/20/18 16:34
[2018-09-21] MEDS: LISINOPRIL 5 MG TABLET PO (12:17)
--- NOTE | 2018-09-21 13:13 | PC.NURSE ---
Addendum entered by Jesús Regan R.N. 09/21/18 15:07: After receiving orders for one time dose of vicodin for pt c/o headache, pt was noted to be resting comfortably in bed with eyes closed and even/unlabored RR. Vicodin not given at this time. Dr. Otoole was updated. Addendum entered by Jesús Regan R.N. 09/21/18 14:11: Spoke with pt's , Jasvir, via telephone. Provided verbal d/c instructions and education. Jasvir requests that Buffy (friend) be updated on education as well. Per , Buffy is on her way to pick the pt up for d/c. Original Note: Attempted to provide d/c teaching to pt. Pt not receptive at this time. She initially denies pain but then develops mild headache symptoms. She voices concern regarding headache becoming worse and is requesting additional vicodin to help. Educated to medication regimen (dose, frequency, next available dose) and offered tylenol. Pt states tylenol is not effective for her headaches and declines use. She requested Dr. Otoole be notified and requests a prescription for vicodin. Spoke with Dr. Otoole, notified of pt c/o headache. Orders rec'd for one time dose of vicodin. Dr. Otoole instructs pt to obtain rx from PCP. Will update pt/. Placed call to pt's , Jasvir, per pt request to review d/c teaching materials and rx information. [phone]. Left message to return call.
--- NOTE | 2018-09-21 15:24 | CM.DANOTE ---
Discharge Planning/Care Management DCP: assessment: case received, EMR reviewed. Discussed in Team Rounds with hospitalist Dr. Otoole stating pt might d/c today. Met now with pt and her friend Buffy, here to take her home. Introduced self and role. Pt clarifies her situation. She lives at home with her who does have heart disease. She says both of them have been accepted by Dr. Eaton and her first appt to establish as a new patient is October 08. She does admit that she has not had a PCP in some time but I am ready to do this and her friend Buffy is encouraging to same. Both have many questions re the d/c instructions and the recommendations by Dr. Otoole. ESTER Espinosa is preparing to talk with them next. Dr. Otoole has d/c'd pt to home setting and with recommendation for clinic followup. Buffy she she bought an over the counter medication for pt to help her digestive problem. Both are strongly encouraged to discuss this with Jesús as this may interfere with what Dr. Otoole is recommending. They readily agree to do so. Advanced directive, confirm from FAMILY Start: 09/20/18 19:24 Freq: Q24H Status: Active Protocol: Document 09/20/18 19:24 URIEL (Rec: 09/20/18 19:24 [facility] [id number]) Advance Directive, confirm on record Time 19:24 Person contacted Copy received No CM Discharge Assessment Start: 09/21/18 15:23 Freq: Status: Active Protocol: Document 09/21/18 15:23 ITV (Rec: 09/21/18 15:24 ITV [id number]) Discharge Planning Assessment Advance Directives? Yes History Provided By Patient Friend Medical Record Has Patient been admitted in last 30 No days? Prior Living Arrangements House Household Members spouse Independent with ADL's Yes Is patient alert and oriented? Yes Review Status In Process
--- NOTE | 2018-09-21 16:26 | PC.NURSE ---
1600- Discharge instruction given to patient and friend. All questions answered and patient verbalized understanding. IV out and Tele monitor is off. Patient awake alert and oriented at the time of discharge.
--- NOTE | 2018-09-21 17:26 | DI.ECHO.S_ITS ---
[facility] +---------+ : : [address] : : : : [id number] : : : : Phone: [phone]+ Echocardiogram Report + + :Name: WILLIAM NEGRETE Study Date: 09/21/2018 Height: 66 in : :[facility] Exam Location: [facility] Weight: 185 lb : : Gender: Female BSA: 1.9 m2 : :: 1940 Age: 77 yrs BP: 128/90 mmHg: :Reason For Study: Atrial fibrillation : :Ordering Physician: Claribel : :Hospitalist Performed By: Krystin Page : :Referring: Luis Alberto AMARO E : + + Interpretation Summary Left ventricular wall thickness is mildly increased. Left ventricular ejection fraction is estimated to be 50 +/- 5%. There is inferior wall hypokinesis. Both atria are severely dilated. There is mild to moderate mitral regurgitation. There is moderate tricuspid regurgitation. The right ventricular systolic pressure is estimated to be at least 40 mmHg based on an estimated right atrial pressure of 15 mm Hg. Procedure: A two-dimensional transthoracic echocardiogram with color flow and Doppler was performed. The study quality was technically adequate. There is no prior echocardiogram noted for this patient. The patient was in atrial fibrillation with heart rates between 69-90 bpm during the exam. Left Ventricle: The left ventricle is normal in size. Left ventricular wall thickness is mildly increased. Left ventricular ejection fraction is estimated to be 50 +/- 5%. There is inferior wall hypokinesis. Diastolic function could not be accurately assessed due to atrial fibrillation. Right Ventricle: The right ventricle is mildly dilated. Right ventricular systolic function is borderline reduced. Atria: Both atria are severely dilated. There is no Doppler evidence for an interatrial shunt. Mitral Valve: The mitral valve leaflets appear mildly thickened, but open well. There is mild mitral annular calcification. There is mild to moderate mitral regurgitation. Aortic Valve: The aortic valve is trileaflet. The aortic valve opens well. There is trace aortic regurgitation. Tricuspid Valve: The tricuspid valve is normal in structure and function. There is moderate tricuspid regurgitation. The right ventricular systolic pressure is estimated to be at least 40 mmHg based on an estimated right atrial pressure of 15 mm Hg. Pulmonic Valve: The pulmonic valve is not well seen, but is grossly normal. There is trace pulmonic regurgitation. Great Vessels: The aortic root is normal size. The ascending aorta is normal in size. The pulmonary artery is not well visualized, but is probably normal size. The IVC is dilated (diameter is greater than 2.1 cm) and it collapses less than 50% with a sniff. This suggests a high right atrial pressure of 15 mm Hg. Pericardium/ Pleura There is no pericardial effusion. There is no pleural effusion. MMode/2D Measurements & Calculations LVIDd: 4.5 cm Ao root diam: 3.3 cm LVIDs: 3.4 cm asc Aorta Diam: 3.3 cm FS: 24.8 % EPSS: 0.45 cm IVSd: 1.00 cm LVPWd: 1.1 cm LV sepulveda. diameter/BSA (cm/m^2): 2.3 LV sys. diameter/BSA (cm/m^2): 1.7 LA A2 area: 32.8 cm2 RA long axis: 6.2 cm LA A4 area: 30.3 cm2 RA area: 27.0 cm2 LA length (vol): 6.4 cm RA vol: 99.8 ml LA vol: 131.8 ml RA : 51.6 ml/m2 LA vol index: 68.1 ml/m2 IVC diam: 2.4 cm RVD1 (basal): 4.2 cm RVD2 (mid): 3.4 cm TAPSE: 1.4 cm Doppler Measurements & Calculations Ao V2 max: 107.5 cm/sec LVOT Max Juan: 69.1 cm/sec Ao V2 mean: 74.3 cm/sec LV V1 max P.9 mmHg Ao max P.6 mmHg LV V1 VTI: 12.7 cm Ao mean P.5 mmHg sev ratio: 0.58 Ao V2 VTI: 21.8 cm MV E max juan: 92.1 cm/sec TR max juan: 246.7 cm/sec MV P1/2t: 53.4 msec TR max P.5 mmHg PA V2 max: 44.5 cm/sec PA V2 mean: 33.5 cm/sec PA mean P.48 mmHg PA Accel Time: 0.08 sec MV P1/2t max juan: 93.3 cm/sec MVA(P1/2t): 4.1 cm2 Reading Physician:12:57 PM
== END 2018-09-21 16:26 | disposition home or self-care (01) | DRG 308 ==
LOC: ED 15:54 → AC 16:34 → ICU 17:17
PROVIDERS: Nurse Practitioner Adult Health; Admitting Provider Family Medicine; Emergency Provider Emergency Medicine; Visit Provider Family Medicine
DX: I48.2 Chronic atrial fibrillation (principal); I50.23 Acute on chronic systolic (congestive) heart failure; I51.3 Intracardiac thrombosis, not elsewhere classified
CPT/HCPCS: 36415; 36591; 74022; 80053; 81003; 82550; 82553; 83690; 83735; 83880; 84443; 84484; 85025; 85610; 85730; 87797; 93005; 93041; 93306; 96365; 96366; 96376; 99285; J1650; J1940

== ENCOUNTER 2018-09-23 11:11 | Emergency (ER) | payer MEDICARE, SELFPAY ==
[2018-09-20 17:21] VITALS: BMI 30.8
[2018-09-23 11:17] VITALS: BP 112/86; PULSE 102; RESP 15; TEMP 36.8; O2SAT 98; BMI 30.2
--- NOTE | 2018-09-23 11:21 | ED.SOB ---
HPI - SOB/Dyspnea <Cindy Baker PA-C - Last Filed: 09/23/18 16:14> General Chief Complaint: Shortness of Breath/Dyspnea Stated Complaint: SOB, Shoulder down left arm/jaw Time Seen by Provider: 09/23/18 11:21 Source: patient Mode of arrival: ambulatory Limitations: no limitations History of Present Illness This 77-year-old female returns to ED she states secondary to insistence of friends and family who are worried about her. She was discharged from this hospital 2 days ago with atrial fibrillation with RVR along with CHF exacerbation. She states that her chest symptoms, GI upset and breathing have not changed, not feeling any worse since discharge. She is not noting any new pain or swelling in her extremities. She states that she has had a persistent headache since before she came here, mainly across the frontal area. She denies any acute worsening of the headache, states that it has not resolved, does get better temporarily if she takes a [place], but she is hesitant to do that. She was previously taking OTC headache medication with caffeine as needed. She denies any vision change or jaw claudication. She states her ears feel somewhat congested but not painful. She denies any new fever. She states that she thinks headache is due to tension and becomes tearful when discussing her severe stressors including just moving here and trying to care for her ill , which she does not feel like she can handle any longer. She states only new symptom is a rash on her upper thigh/groin area, not painful, noted this last night and she put some cream on it (not sure what the cream was, some type of prescription from previous rash). Rash has not spread today. Related Data Home Medications Medication Instructions Recorded Confirmed Headache Relief ([id number]) 1 packet PO PRN PRN 09/20/18 09/20/18 Vitamin C 1 tab PO DAILY 09/20/18 09/20/18 hydrocodone-acetaminophen 1 tab PO 1-2XD PRN 09/20/18 09/20/18 magnesium 1 tab PO DAILY 09/20/18 09/20/18 multivitamin 1 tab PO DAILY 09/20/18 09/20/18 potassium 1 tab PO DAILY 09/20/18 09/20/18 zolpidem 5 mg PO BEDTIME PRN 09/20/18 09/20/18 Previous Rx's Medication Instructions Recorded lisinopril 5 mg PO DAILY #30 tab 09/21/18 metoprolol tartrate 25 mg PO BID #60 tab 09/21/18 Allergies Allergy/AdvReac Type Severity Reaction Status Date / Time No Known Drug Allergies Allergy Verified 09/23/18 11:17 Review of Systems <Cindy Baker PA-C - Last Filed: 09/23/18 16:14> Review of Systems ROS Unobtainable: All systems reviewed & are unremarkable except as noted in HPI and below PFSH <Cindy Baker PA-C - Last Filed: 09/23/18 16:14> Medical History (Updated 09/23/18 @ 13:34 by Cindy Baker PA-C) Atrial fibrillation (Chronic) Chronic headaches (Chronic) Congestive heart failure (CHF) (Chronic) H/O: hysterectomy (Chronic) Surgical History History of bilateral hip replacements (Resolved) History of hysterectomy (Resolved) Family History (Updated 09/20/18 @ 17:37 by Luis Alberto Schaefer MD) Mother No problems noted. Father Cancer Social History (Updated 09/20/18 @ 14:35 by Yasmine Parrish DO) marital status: household members: spouse Smoking Status: Unknown if ever smoked alcohol intake: current substance use type: does not use Family History (Updated 09/20/18 @ 17:37 by Luis Alberto Schaefer MD) Mother No problems noted. Father Cancer Social History marital status: household members: spouse Smoking Status: Unknown if ever smoked alcohol intake: current substance use type: does not use Exam <Cindy Baker PA-C - Last Filed: 09/23/18 16:14> Narrative Exam Narrative: GENERAL APPEARANCE: Patient sitting comfortably, intermittently tearful HEENT: PERRL, EOMI, TMs dull, intact, normal oropharynx NECK: Supple LUNGS: Clear to auscultation bilaterally. HEART: Rate and rhythm irregular without murmur. Heart rate increases to 130-140 range when patient discusses her stressors and is tearful ABDOMEN: Soft, nontender, nondistended, bowel sounds present x 4 quadrants EXTREMITIES: No edema, no cyanosis, no calf tenderness DERMATOLOGIC: At the bilateral posterior thigh creases there is symmetric erythema with small papular lesions contained within, clearly demarcated NEUROLOGIC: Alert and oriented with normal speech and coordination Initial Vital Signs Initial Vital Signs: Vital Signs Temperature 98.3 F 09/23/18 11:17 Pulse Rate 102 H 09/23/18 11:17 Respiratory Rate 15 09/23/18 11:17 Blood Pressure 112/86 09/23/18 11:17 Pulse Oximetry 98 09/23/18 11:17 <Cole Acevedo DO - Last Filed: 09/23/18 16:35> Initial Vital Signs Initial Vital Signs: Vital Signs Temperature 98.3 F 09/23/18 11:17 Pulse Rate 102 H 09/23/18 11:17 Respiratory Rate 15 09/23/18 11:17 Blood Pressure 112/86 09/23/18 11:17 Pulse Oximetry 98 09/23/18 11:17 Course <Cindy Baker PA-C - Last Filed: 09/23/18 16:14> Additional Information: Patient reported feeling resolution of headache and overall improved after administration of additional dose of metoprolol. Heart rate quickly lori to the 130-140 range when discussing her stressors, suspect this persists at home. Tachycardia resolved at the time of discharge and no significant change in blood pressure, so advised to continue additional metoprolol tomorrow (advised not to take any extra today, but to take 37.5 mg b.i.d. starting tomorrow). Discussed headache likely exacerbated by stressors but also related to the previous frequent use of Excedrin migraine/caffeine medication which she is off of now and also had not been drinking coffee. Advised to follow up with new PCP office this week and given return precautions for ED with which she is agreeable. We were also able to have her see care management and discuss local options for helping with home needs and stress management. Orders Ordered: ED Orders 09/23/18 11:17 EKG-12 Lead Routine 09/23/18 11:41 CT head/brain wo con Stat 09/23/18 11:50 C-Reactive Protein Quant Stat Complete Blood Count AUTO DIFF Stat Comprehensive Metabolic Panel Stat Erythrocyte Sedimentation Rate Stat Troponin & CK Cardiac Panel Stat 09/23/18 13:34 Consult to Toll Gate Keeper Stat Discontinued Medications Metoprolol Tartrate (Lopressor) 25 mg PO NOW ONE Stop: 09/23/18 11:43 Last Admin: 09/23/18 12:01 Dose: 25 mg Vital Signs - 8 hr 09/23/18 11:17 09/23/18 12:11 09/23/18 12:30 Temperature 98.3 F Pulse Rate 102 H 108 H 94 H Respiratory Rate 15 15 17 Blood Pressure 112/86 Blood Pressure [Left Arm] 105/78 116/93 H Pulse Oximetry 98 99 09/23/18 13:30 Temperature Pulse Rate 87 Respiratory Rate 20 Blood Pressure Blood Pressure [Left Arm] 109/73 Pulse Oximetry 98 <Cole Acevedo DO - Last Filed: 09/23/18 16:35> Orders Ordered: ED Orders 09/23/18 11:17 EKG-12 Lead Routine 09/23/18 11:41 CT head/brain wo con Stat 09/23/18 11:50 C-Reactive Protein Quant Stat Complete Blood Count AUTO DIFF Stat Comprehensive Metabolic Panel Stat Erythrocyte Sedimentation Rate Stat Troponin & CK Cardiac Panel Stat 09/23/18 13:34 Consult to Toll Gate Keeper Stat Discontinued Medications Metoprolol Tartrate (Lopressor) 25 mg PO NOW ONE Stop: 09/23/18 11:43 Last Admin: 09/23/18 12:01 Dose: 25 mg Vital Signs - 8 hr 09/23/18 11:17 09/23/18 12:11 09/23/18 12:30 Temperature 98.3 F Pulse Rate 102 H 108 H 94 H Respiratory Rate 15 15 17 Blood Pressure 112/86 Blood Pressure [Left Arm] 105/78 116/93 H Pulse Oximetry 98 99 09/23/18 13:30 Temperature Pulse Rate 87 Respiratory Rate 20 Blood Pressure Blood Pressure [Left Arm] 109/73 Pulse Oximetry 98 MDM - SOB/Dyspnea <Cindy Baker PA-C - Last Filed: 09/23/18 16:14> Lab Data Result diagrams: 09/23/18 11:50 09/23/18 11:50 Lab Results 09/23/18 09/23/18 Range/Units 11:50 11:50 WBC 7.4 (4.5-11.0) X10^3/uL RBC 4.60 (4.0-5.2) X10^6/uL Hgb 14.4 (12.0-16.0) g/dL Hct 42.7 (36-46) % MCV 92.7 (80-100) fL MCH 31.2 (26-34) PG MCHC 33.7 (30-36) % RDW 14.4 (11.6-14.8) % Plt Count 332 (150-400) X10^3/uL Neut % (Auto) 61.0 (50-75) % Lymph % (Auto) 22.4 L (25-40) % Dickinson % (Auto) 11.9 (3-14) % Eos % (Auto) 3.2 (2-4) % Baso % (Auto) 1.5 (0-2) % Neut # (Auto) 4500 (0960-6976) /uL Lymph # (Auto) 1700 (6364-2571) /uL Dickinson # (Auto) 900 (0-900) /uL Eos # (Auto) 200 (0-450) /uL Baso # (Auto) 100 (0-100) /uL ESR 1 (0-20) MM/HR Sodium 138 (137-145) mmol/L Potassium 4.4 (3.4-5.1) mmol/L Chloride 106 (98-107) mmol/L Carbon Dioxide 22 (22-32) mmol/L BUN 32 H (7-17) mg/dL Creatinine 0.80 (0.52-1.04) mg/dL Estimated GFR > 60.0 (>60) mL/min BUN/Creatinine Ratio 40.0 H (6-22) Glucose 102 (80-110) mg/dL Calcium 9.5 (8.4-10.2) mg/dL Total Bilirubin 0.7 (0.2-1.3) mg/dL AST 22 (14-36) IU/L ALT 48 (9-52) IU/L Alkaline Phosphatase 87 (38-126) U/L Total Creatine Kinase 82 (30-135) U/L CK-MB (CK-2) TNP CK-MB (CK-2) Rel Index TNP Troponin I < 0.012 (0.01-0.034) ng/mL C-Reactive Protein 1.0 (<1.0) mg/dL Total Protein 6.9 (6.3-8.2) g/dL Albumin 4.1 (3.5-5.0) g/dL Globulin 2.8 (1.7-4.1) g/dL Albumin/Globulin Ratio 1.5 (1.0-2.8) Imaging Data CT scan - head: Radiologist's impression: [address] [address] [address] Scan Report Signed Patient: Dagmar Harvey [facility]#: [id number] : 2Acct:[id number] Age/Sex: 77 / FDate of Service: 09/23/18 Loc: ED Accession Number: [id number] Procedure: CT head/brain wo con Ordering Provider: Cindy Baker P.A-C PROCEDURE: CT HEAD/BRAIN WO CON INDICATIONS: persistent MENCHACA atypical TECHNIQUE: Noncontrast 4.5 mm thick angled axial sections acquired from the foramen magnum to the vertex, with coronal and sagittal reformats. For radiation dose reduction, the following was used: automated exposure control, adjustment of mA and/or kV according to patient size. COMPARISON: None. FINDINGS: Image quality: Excellent. CSF spaces: Basal cisterns are patent. No extra-axial fluid collections. The ventricles are symmetric in size and shape. A dense focal calcification is present within the falx cerebrum. The pineal gland is heavily calcified. Brain: No intracranial bleeds or masses. There is cerebral volume loss for age, with resultant ventricular and sulcal prominence. There are periventricular and deep white matter chronic small vessel ischemic changes. There is intracranial internal carotid artery atherosclerosis. Skull and face: Calvarium and visualized facial bones appear intact, without suspicious lesions. Sinuses: Visualized sinuses and mastoids are clear. IMPRESSION: 1. No acute intracranial findings. 2. Findings likely associated with chronic microvascular ischemic changes. Dictated by: Juliette Ibarra M.D. on 09/23/2018 at 11:06 Approved by: Juliette Ibarra M.D. on 09/23/2018 at 11:08 ECG Data Attestation: I personally reviewed and interpreted this ECG as follows: (Atrial fibrillation with rate 108, nonspecific ST changes) Prior ECG tracings: available for review <Cole Acevedo DO - Last Filed: 09/23/18 16:35> Lab Data Lab Results 09/23/18 09/23/18 Range/Units 11:50 11:50 WBC 7.4 (4.5-11.0) X10^3/uL RBC 4.60 (4.0-5.2) X10^6/uL Hgb 14.4 (12.0-16.0) g/dL Hct 42.7 (36-46) % MCV 92.7 (80-100) fL MCH 31.2 (26-34) PG MCHC 33.7 (30-36) % RDW 14.4 (11.6-14.8) % Plt Count 332 (150-400) X10^3/uL Neut % (Auto) 61.0 (50-75) % Lymph % (Auto) 22.4 L (25-40) % Dickinson % (Auto) 11.9 (3-14) % Eos % (Auto) 3.2 (2-4) % Baso % (Auto) 1.5 (0-2) % Neut # (Auto) 4500 (0069-8450) /uL Lymph # (Auto) 1700 (2186-0397) /uL Dickinson # (Auto) 900 (0-900) /uL Eos # (Auto) 200 (0-450) /uL Baso # (Auto) 100 (0-100) /uL ESR 1 (0-20) MM/HR Sodium 138 (137-145) mmol/L Potassium 4.4 (3.4-5.1) mmol/L Chloride 106 (98-107) mmol/L Carbon Dioxide 22 (22-32) mmol/L BUN 32 H (7-17) mg/dL Creatinine 0.80 (0.52-1.04) mg/dL Estimated GFR > 60.0 (>60) mL/min BUN/Creatinine Ratio 40.0 H (6-22) Glucose 102 (80-110) mg/dL Calcium 9.5 (8.4-10.2) mg/dL Total Bilirubin 0.7 (0.2-1.3) mg/dL AST 22 (14-36) IU/L ALT 48 (9-52) IU/L Alkaline Phosphatase 87 (38-126) U/L Total Creatine Kinase 82 (30-135) U/L CK-MB (CK-2) TNP CK-MB (CK-2) Rel Index TNP Troponin I < 0.012 (0.01-0.034) ng/mL C-Reactive Protein 1.0 (<1.0) mg/dL Total Protein 6.9 (6.3-8.2) g/dL Albumin 4.1 (3.5-5.0) g/dL Globulin 2.8 (1.7-4.1) g/dL Albumin/Globulin Ratio 1.5 (1.0-2.8) Discharge Plan Departure Patient Disposition: Home Clinical Impression: Atrial fibrillation with RVR Headache Qualifiers: Headache type: new daily persistent Qualified Code(s): G44.52 - New daily persistent headache (NDPH) Discharge Date/Time: 09/23/18 14:17 Interventions: ED Discharge Assessment Last Done: 09/23/18 14:17 Instructions: Tension Headache, DI for Atrial Fibrillation, DI for Headache Activity Restrictions/Additional Instructions: As we talked about, you should return to the emergency department if you have new or acutely worsening symptoms, i.e. more severe headache, difficulty with speech, swallowing, talking or weakness in her extremities, new chest pain or trouble breathing. I suspect that your persistent headache is caused by medication changes including being off of the [id number] headache medicine with caffeine. Please remain off of this as the caffeine could exacerbate your high heart rate from the atrial fibrillation. You can take Tylenol as needed for the headache and for more severe pain take the hydrocodone/acetaminophen instead. Try applying an ice pack on your neck and resting in a dark, quiet room to help the headache. The headache may improve on its own after you have been off of regular medications for some time. For your atrial fibrillation, please start a baby aspirin (81 mg) once daily to help prevent clots and stroke. Take the first dose today. I understand that you have not wanted to take this or other blood thinner medications, but this is at least some amount of protection until you see your new primary care provider and discuss pros and cons and all of the options. Continue your metoprolol and lisinopril that you have started. Since your chest discomfort is better now as well, please increase your metoprolol starting tomorrow morning (not today) to 1-1/2 tabs (37.5 mg) twice daily as this may better control your heart rate. Please call [facility] tomorrow morning and let them know that you were seen here in the emergency department today after just being discharged from the hospital, and we felt you need to follow-up this week. You can keep your appointment with Dr. Eaton for next month, but we would like you to see 1 of the other providers in the interim (let them know that Dr. Otoole discharged you from the hospital in case he is in the office this week). Good luck with your move/transition here and welcome to town! Prescriptions: No Action hydrocodone-acetaminophen 5-325 mg tablet 1 tab PO 1-2XD PRN (Reason: pain) RF: 0 zolpidem 5 mg tablet 5 mg PO BEDTIME PRN (Reason: Sleep) RF: 0 multivitamin Tablet 1 tab PO DAILY RF: 0 Headache Relief ([id number]-iqf) powder 1 packet PO PRN PRN (Reason: Headache) RF: 0 Vitamin C 1 tab PO DAILY RF: 0 magnesium 1 tab PO DAILY RF: 0 potassium 1 tab PO DAILY RF: 0 lisinopril 5 mg Tablet 5 mg PO DAILY Qty: 30 RF: 4 metoprolol tartrate 25 mg Tablet 25 mg PO BID Qty: 60 RF: 4 Referrals: Dm Eaton MD [Physician] - <Cole Acevedo DO - Last Filed: 09/23/18 16:35> Cosign ED Attending Cosignature Attestation: I was immediately available in the department for consultation. Documentation has been reviewed. I agree with assessment and plan.
--- NOTE | 2018-09-23 11:41 | DI.CT.S_ITS ---
PROCEDURE: CT HEAD/BRAIN WO CON INDICATIONS: persistent MENCHACA atypical TECHNIQUE: Noncontrast 4.5 mm thick angled axial sections acquired from the foramen magnum to the vertex, with coronal and sagittal reformats. For radiation dose reduction, the following was used: automated exposure control, adjustment of mA and/or kV according to patient size. COMPARISON: None. FINDINGS: Image quality: Excellent. CSF spaces: Basal cisterns are patent. No extra-axial fluid collections. The ventricles are symmetric in size and shape. A dense focal calcification is present within the falx cerebrum. The pineal gland is heavily calcified. Brain: No intracranial bleeds or masses. There is cerebral volume loss for age, with resultant ventricular and sulcal prominence. There are periventricular and deep white matter chronic small vessel ischemic changes. There is intracranial internal carotid artery atherosclerosis. Skull and face: Calvarium and visualized facial bones appear intact, without suspicious lesions. Sinuses: Visualized sinuses and mastoids are clear. IMPRESSION: 1. No acute intracranial findings. 2. Findings likely associated with chronic microvascular ischemic changes. Dictated by: Juliette Ibarra M.D. on 09/23/2018 at 11:06 Approved by: Juliette Ibarra M.D. on 09/23/2018 at 11:08
--- NOTE | 2018-09-23 11:50 | ED_ITS ---
HPI - SOB/Dyspnea <Cindy Baker PA-C - Last Filed: 09/23/18 16:14> General Chief Complaint: Shortness of Breath/Dyspnea Stated Complaint: SOB, Shoulder down left arm/jaw Time Seen by Provider: 09/23/18 11:21 Source: patient Mode of arrival: ambulatory Limitations: no limitations History of Present Illness This 77-year-old female returns to ED she states secondary to insistence of friends and family who are worried about her. She was discharged from this hospital 2 days ago with atrial fibrillation with RVR along with CHF exacerbation. She states that her chest symptoms, GI upset and breathing have not changed, not feeling any worse since discharge. She is not noting any new pain or swelling in her extremities. She states that she has had a persistent headache since before she came here, mainly across the frontal area. She denies any acute worsening of the headache, states that it has not resolved, does get better temporarily if she takes a Lucile, but she is hesitant to do that. She was previously taking OTC headache medication with caffeine as needed. She denies any vision change or jaw claudication. She states her ears feel somewhat congested but not painful. She denies any new fever. She states that she thinks headache is due to tension and becomes tearful when discussing her severe stressors including just moving here and trying to care for her ill , which she does not feel like she can handle any longer. She states only new symptom is a rash on her upper thigh/groin area, not painful, noted this last night and she put some cream on it (not sure what the cream was, some type of prescription from previous rash). Rash has not spread today. Related Data Home Medications Medication Instructions Recorded Confirmed Headache Relief ([id number]) 1 packet PO PRN PRN 09/20/18 09/20/18 Vitamin C 1 tab PO DAILY 09/20/18 09/20/18 hydrocodone-acetaminophen 1 tab PO 1-2XD PRN 09/20/18 09/20/18 magnesium 1 tab PO DAILY 09/20/18 09/20/18 multivitamin 1 tab PO DAILY 09/20/18 09/20/18 potassium 1 tab PO DAILY 09/20/18 09/20/18 zolpidem 5 mg PO BEDTIME PRN 09/20/18 09/20/18 Previous Rx's Medication Instructions Recorded lisinopril 5 mg PO DAILY #30 tab 09/21/18 metoprolol tartrate 25 mg PO BID #60 tab 09/21/18 Allergies Allergy/AdvReac Type Severity Reaction Status Date / Time No Known Drug Allergies Allergy Verified 09/23/18 11:17 Review of Systems <Cindy Baker PA-C - Last Filed: 09/23/18 16:14> Review of Systems ROS Unobtainable: All systems reviewed & are unremarkable except as noted in HPI and below PFSH <Cindy Baker PA-C - Last Filed: 09/23/18 16:14> Medical History (Updated 09/23/18 @ 13:34 by Cindy Baker PA-C) Atrial fibrillation (Chronic) Chronic headaches (Chronic) Congestive heart failure (CHF) (Chronic) H/O: hysterectomy (Chronic) Surgical History History of bilateral hip replacements (Resolved) History of hysterectomy (Resolved) Family History (Updated 09/20/18 @ 17:37 by Luis Alberto Schaefer MD) Mother No problems noted. Father Cancer Social History (Updated 09/20/18 @ 14:35 by Yasmine Parrish DO) marital status: household members: spouse Smoking Status: Unknown if ever smoked alcohol intake: current substance use type: does not use Family History (Updated 09/20/18 @ 17:37 by Luis Alberto Schaefer MD) Mother No problems noted. Father Cancer Social History marital status: household members: spouse Smoking Status: Unknown if ever smoked alcohol intake: current substance use type: does not use Exam <Cindy Baker PA-C - Last Filed: 09/23/18 16:14> Narrative Exam Narrative: GENERAL APPEARANCE: Patient sitting comfortably, intermittently tearful HEENT: PERRL, EOMI, TMs dull, intact, normal oropharynx NECK: Supple LUNGS: Clear to auscultation bilaterally. HEART: Rate and rhythm irregular without murmur. Heart rate increases to 130-140 range when patient discusses her stressors and is tearful ABDOMEN: Soft, nontender, nondistended, bowel sounds present x 4 quadrants EXTREMITIES: No edema, no cyanosis, no calf tenderness DERMATOLOGIC: At the bilateral posterior thigh creases there is symmetric erythema with small papular lesions contained within, clearly demarcated NEUROLOGIC: Alert and oriented with normal speech and coordination Initial Vital Signs Initial Vital Signs: Vital Signs Temperature 98.3 F 09/23/18 11:17 Pulse Rate 102 H 09/23/18 11:17 Respiratory Rate 15 09/23/18 11:17 Blood Pressure 112/86 09/23/18 11:17 Pulse Oximetry 98 09/23/18 11:17 <Cole Acevedo DO - Last Filed: 09/23/18 16:35> Initial Vital Signs Initial Vital Signs: Vital Signs Temperature 98.3 F 09/23/18 11:17 Pulse Rate 102 H 09/23/18 11:17 Respiratory Rate 15 09/23/18 11:17 Blood Pressure 112/86 09/23/18 11:17 Pulse Oximetry 98 09/23/18 11:17 Course <Cindy Baker PA-C - Last Filed: 09/23/18 16:14> Additional Information: Patient reported feeling resolution of headache and overall improved after administration of additional dose of metoprolol. Heart rate quickly lori to the 130-140 range when discussing her stressors, suspect this persists at home. Tachycardia resolved at the time of discharge and no significant change in blood pressure, so advised to continue additional metoprolol tomorrow (advised not to take any extra today, but to take 37.5 mg b.i.d. starting tomorrow). Discussed headache likely exacerbated by stressors but also related to the previous frequent use of Excedrin migraine/caffeine medication which she is off of now and also had not been drinking coffee. Advised to follow up with new PCP office this week and given return precautions for ED with which she is agreeable. We were also able to have her see care management and discuss local options for helping with home needs and stress management. Orders Ordered: ED Orders 09/23/18 11:17 EKG-12 Lead Routine 09/23/18 11:41 CT head/brain wo con Stat 09/23/18 11:50 C-Reactive Protein Quant Stat Complete Blood Count AUTO DIFF Stat Comprehensive Metabolic Panel Stat Erythrocyte Sedimentation Rate Stat Troponin & CK Cardiac Panel Stat 09/23/18 13:34 Consult to Assembler Brazer Stat Discontinued Medications Metoprolol Tartrate (Lopressor) 25 mg PO NOW ONE Stop: 09/23/18 11:43 Last Admin: 09/23/18 12:01 Dose: 25 mg Vital Signs - 8 hr 09/23/18 11:17 09/23/18 12:11 09/23/18 12:30 Temperature 98.3 F Pulse Rate 102 H 108 H 94 H Respiratory Rate 15 15 17 Blood Pressure 112/86 Blood Pressure [Left Arm] 105/78 116/93 H Pulse Oximetry 98 99 09/23/18 13:30 Temperature Pulse Rate 87 Respiratory Rate 20 Blood Pressure Blood Pressure [Left Arm] 109/73 Pulse Oximetry 98 <Cole Acevedo DO - Last Filed: 09/23/18 16:35> Orders Ordered: ED Orders 09/23/18 11:17 EKG-12 Lead Routine 09/23/18 11:41 CT head/brain wo con Stat 09/23/18 11:50 C-Reactive Protein Quant Stat Complete Blood Count AUTO DIFF Stat Comprehensive Metabolic Panel Stat Erythrocyte Sedimentation Rate Stat Troponin & CK Cardiac Panel Stat 09/23/18 13:34 Consult to Assembler Brazer Stat Discontinued Medications Metoprolol Tartrate (Lopressor) 25 mg PO NOW ONE Stop: 09/23/18 11:43 Last Admin: 09/23/18 12:01 Dose: 25 mg Vital Signs - 8 hr 09/23/18 11:17 09/23/18 12:11 09/23/18 12:30 Temperature 98.3 F Pulse Rate 102 H 108 H 94 H Respiratory Rate 15 15 17 Blood Pressure 112/86 Blood Pressure [Left Arm] 105/78 116/93 H Pulse Oximetry 98 99 09/23/18 13:30 Temperature Pulse Rate 87 Respiratory Rate 20 Blood Pressure Blood Pressure [Left Arm] 109/73 Pulse Oximetry 98 MDM - SOB/Dyspnea <Cindy Baker PA-C - Last Filed: 09/23/18 16:14> Lab Data Result diagrams: 09/23/18 11:50 09/23/18 11:50 Lab Results 09/23/18 09/23/18 Range/Units 11:50 11:50 WBC 7.4 (4.5-11.0) X10^3/uL RBC 4.60 (4.0-5.2) X10^6/uL Hgb 14.4 (12.0-16.0) g/dL Hct 42.7 (36-46) % MCV 92.7 (80-100) fL MCH 31.2 (26-34) PG MCHC 33.7 (30-36) % RDW 14.4 (11.6-14.8) % Plt Count 332 (150-400) X10^3/uL Neut % (Auto) 61.0 (50-75) % Lymph % (Auto) 22.4 L (25-40) % [place] % (Auto) 11.9 (3-14) % Eos % (Auto) 3.2 (2-4) % Baso % (Auto) 1.5 (0-2) % Neut # (Auto) 4500 (3535-2659) /uL Lymph # (Auto) 1700 (2537-2366) /uL [place] # (Auto) 900 (0-900) /uL Eos # (Auto) 200 (0-450) /uL Baso # (Auto) 100 (0-100) /uL ESR 1 (0-20) MM/HR Sodium 138 (137-145) mmol/L Potassium 4.4 (3.4-5.1) mmol/L Chloride 106 (98-107) mmol/L Carbon Dioxide 22 (22-32) mmol/L BUN 32 H (7-17) mg/dL Creatinine 0.80 (0.52-1.04) mg/dL Estimated GFR > 60.0 (>60) mL/min BUN/Creatinine Ratio 40.0 H (6-22) Glucose 102 (80-110) mg/dL Calcium 9.5 (8.4-10.2) mg/dL Total Bilirubin 0.7 (0.2-1.3) mg/dL AST 22 (14-36) IU/L ALT 48 (9-52) IU/L Alkaline Phosphatase 87 (38-126) U/L Total Creatine Kinase 82 (30-135) U/L CK-MB (CK-2) TNP CK-MB (CK-2) Rel Index TNP Troponin I < 0.012 (0.01-0.034) ng/mL C-Reactive Protein 1.0 (<1.0) mg/dL Total Protein 6.9 (6.3-8.2) g/dL Albumin 4.1 (3.5-5.0) g/dL Globulin 2.8 (1.7-4.1) g/dL Albumin/Globulin Ratio 1.5 (1.0-2.8) Imaging Data CT scan - head: Radiologist's impression: [address] [address] [address] Scan Report Signed Patient: Dagmar Harvey [facility]#: [id number] : 2Acct:[id number] Age/Sex: 77 / FDate of Service: 09/23/18 Loc: ED Accession Number: [id number] Procedure: CT head/brain wo con Ordering Provider: Cindy Baker P.A-C PROCEDURE: CT HEAD/BRAIN WO CON INDICATIONS: persistent [place] atypical TECHNIQUE: Noncontrast 4.5 mm thick angled axial sections acquired from the foramen magnum to the vertex, with coronal and sagittal reformats. For radiation dose reduction, the following was used: automated exposure control, adjustment of mA and/or kV according to patient size. COMPARISON: None. FINDINGS: Image quality: Excellent. CSF spaces: Basal cisterns are patent. No extra-axial fluid collections. The ventricles are symmetric in size and shape. A dense focal calcification is present within the falx cerebrum. The pineal gland is heavily calcified. Brain: No intracranial bleeds or masses. There is cerebral volume loss for age, with resultant ventricular and sulcal prominence. There are periventricular and deep white matter chronic small vessel ischemic changes. There is intracranial internal c arotid artery atherosclerosis. Skull and face: Calvarium and visualized facial bones appear intact, without suspicious lesions. Sinuses: Visualized sinuses and mastoids are clear. IMPRESSION: 1. No acute intracranial findings. 2. Findings likely associated with chronic microvascular ischemic changes. Dictated by: Juliette Ibarra M.D. on 09/23/2018 at 11:06 Approved by: Juliette Ibarra M.D. on 09/23/2018 at 11:08 ECG Data Attestation: I personally reviewed and interpreted this ECG as follows: (Atrial fibrillation with rate 108, nonspecific ST changes) Prior ECG tracings: available for review <Cole Acevedo DO - Last Filed: 09/23/18 16:35> Lab Data Lab Results 09/23/18 09/23/18 Range/Units 11:50 11:50 WBC 7.4 (4.5-11.0) X10^3/uL RBC 4.60 (4.0-5.2) X10^6/uL Hgb 14.4 (12.0-16.0) g/dL Hct 42.7 (36-46) % MCV 92.7 (80-100) fL MCH 31.2 (26-34) PG MCHC 33.7 (30-36) % RDW 14.4 (11.6-14.8) % Plt Count 332 (150-400) X10^3/uL Neut % (Auto) 61.0 (50-75) % Lymph % (Auto) 22.4 L (25-40) % [place] % (Auto) 11.9 (3-14) % Eos % (Auto) 3.2 (2-4) % Baso % (Auto) 1.5 (0-2) % Neut # (Auto) 4500 (1408-8072) /uL Lymph # (Auto) 1700 (7344-1541) /uL [place] # (Auto) 900 (0-900) /uL Eos # (Auto) 200 (0-450) /uL Baso # (Auto) 100 (0-100) /uL ESR 1 (0-20) MM/HR Sodium 138 (137-145) mmol/L Potassium 4.4 (3.4-5.1) mmol/L Chloride 106 (98-107) mmol/L Carbon Dioxide 22 (22-32) mmol/L BUN 32 H (7-17) mg/dL Creatinine 0.80 (0.52-1.04) mg/dL Estimated GFR > 60.0 (>60) mL/min BUN/Creatinine Ratio 40.0 H (6-22) Glucose 102 (80-110) mg/dL Calcium 9.5 (8.4-10.2) mg/dL Total Bilirubin 0.7 (0.2-1.3) mg/dL AST 22 (14-36) IU/L ALT 48 (9-52) IU/L Alkaline Phosphatase 87 (38-126) U/L Total Creatine Kinase 82 (30-135) U/L CK-MB (CK-2) TNP CK-MB (CK-2) Rel Index TNP Troponin I < 0.012 (0.01-0.034) ng/mL C-Reactive Protein 1.0 (<1.0) mg/dL Total Protein 6.9 (6.3-8.2) g/dL Albumin 4.1 (3.5-5.0) g/dL Globulin 2.8 (1.7-4.1) g/dL Albumin/Globulin Ratio 1.5 (1.0-2.8) Discharge Plan Departure Patient Disposition: Home Clinical Impression: Atrial fibrillation with RVR Headache Qualifiers: Headache type: new daily persistent Qualified Code(s): G44.52 - New daily persistent headache (NDPH) Discharge Date/Time: 09/23/18 14:17 Interventions: ED Discharge Assessment Last Done: 09/23/18 14:17 Instructions: Tension Headache, DI for Atrial Fibrillation, DI for Headache Activity Restrictions/Additional Instructions: As we talked about, you should return to the emergency department if you have new or acutely worsening symptoms, i.e. more severe headache, difficulty with speech, swallowing, talking or weakness in her extremities, new chest pain or trouble breathing. I suspect that your persistent headache is caused by medication changes including being off of the [id number] headache medicine with caffeine. Please remain off of this as the caffeine could exacerbate your high heart rate from the atrial fibrillation. You can take Tylenol as needed for the headache and for more severe pain take the hydrocodone/acetaminophen instead. Try applying an ice pack on your neck and resting in a dark, quiet room to help the headache. The headache may improve on its own after you have been off of regular medications for some time. For your atrial fibrillation, please start a baby aspirin (81 mg) once daily to help prevent clots and stroke. Take the first dose today. I understand that you have not wanted to take this or other blood thinner medications, but this is at least some amount of protection until you see your new primary care provider and discuss pros and cons and all of the options. Continue your metoprolol and lisinopril that you have started. Since your chest discomfort is better now as well, please increase your metoprolol starting tomorrow morning (not today) to 1-1/2 tabs (37.5 mg) twice daily as this may better control your heart rate. Please call [facility] tomorrow morning and let them know that you were seen here in the emergency department today after just being discharged from the hospital, and we felt you need to follow-up this week. You can keep your appointment with Dr. Eaton for next month, but we would like you to see 1 of the other providers in the interim (let them know that Dr. Otoole discharged you from the hospital in case he is in the office this week). Good luck with your move/transition here and welcome to town! Prescriptions: No Action hydrocodone-acetaminophen 5-325 mg tablet 1 tab PO 1-2XD PRN (Reason: pain) RF: 0 zolpidem 5 mg tablet 5 mg PO BEDTIME PRN (Reason: Sleep) RF: 0 multivitamin Tablet 1 tab PO DAILY RF: 0 Headache Relief (YAZ-ypph-ydn) powder 1 packet PO PRN PRN (Reason: Headache) RF: 0 Vitamin C 1 tab PO DAILY RF: 0 magnesium 1 tab PO DAILY RF: 0 potassium 1 tab PO DAILY RF: 0 lisinopril 5 mg Tablet 5 mg PO DAILY Qty: 30 RF: 4 metoprolol tartrate 25 mg Tablet 25 mg PO BID Qty: 60 RF: 4 Referrals: Dm Eaotn MD [Physician] - <Cole Acevedo DO - Last Filed: 09/23/18 16:35> Cosign ED Attending Cosignature Attestation: I was immediately available in the department for consultation. Documentation has been reviewed. I agree with assessment and plan.
[2018-09-23] MEDS: METOPROLOL IR 25 MG TABLET PO (12:01)
[2018-09-23 12:04] LABS: Add Manual Diff / Slide Review NO; Basophils Absolute Auto 100 /uL (0-100); Basophils Percent Auto 1.5 % (0-2); Eosinophils Absolute Auto 200 /uL (0-450); Eosinophils Percent Auto 3.2 % (2-4); Hematocrit 42.7 % (36-46); Hemoglobin 14.4 g/dL (12.0-16.0); Lymphocytes Absolute Auto 1700 /uL (1100-4500); Lymphocytes Percent Auto 22.4 % (25-40); Mean Corpuscular HGB Conc 33.7 % (30-36); Mean Corpuscular Hemoglobin 31.2 PG (26-34); Mean Corpuscular Volume 92.7 fL (80-100); Monocytes Absolute Auto 900 /uL (0-900); Monocytes Percent Auto 11.9 % (3-14); Neutrophils Absolute Auto 4500 /uL (1500-7000); Platelet Count 332 X10^3/uL (150-400); Red Cell Distribution Width 14.4 % (11.6-14.8); White Blood Cell Count 7.4 X10^3/uL (4.5-11.0)
[2018-09-23 12:11] VITALS: BP 105/78; PULSE 108; RESP 15; O2SAT 99
[2018-09-23 12:20] LABS: Alanine Aminotransferase 48 IU/L (9-52); Albumin 4.1 g/dL (3.5-5.0); Albumin Globulin Ratio 1.5 (1.0-2.8); Alkaline Phosphatase 87 U/L (38-126); Aspartate Aminotransferase 22 IU/L (14-36); Bilirubin Total 0.7 mg/dL (0.2-1.3); Blood Urea Nitrogen 32 mg/dL (7-17); Calcium 9.5 mg/dL (8.4-10.2); Carbon Dioxide 22 mmol/L (22-32); Chloride 106 mmol/L (98-107); Creatine Kinase 82 U/L (30-135); Estimated Glomerular Filt Rate > 60.0 mL/min (>60); Globulin 2.8 g/dL (1.7-4.1); Glucose 102 mg/dL (80-110); HEMOLYSIS < 15 (0-50); Potassium 4.4 mmol/L (3.4-5.1); Sodium 138 mmol/L (137-145); Total Protein 6.9 g/dL (6.3-8.2)
[2018-09-23 12:30] VITALS: BP 116/93; PULSE 94; RESP 17
[2018-09-23 12:30] LABS: Erythrocyte Sedimentation Rate 1 MM/HR (0-20); Troponin I < 0.012 ng/mL (0.01-0.034)
[2018-09-23 13:30] VITALS: BP 109/73; PULSE 87; RESP 20; O2SAT 98
--- NOTE | 2018-09-23 15:52 | CM.SWNOTE ---
Social Work Consult Note: Requested by ABBI Holguin to see Dagmar before her DC from the ED today. Cindy hopeful this PERINATAL TECH can provide some supportive resources for help in the home vs help w/spouse as Dagmar has been tearful in the room explaining how overwhelmed she feels taking care of spouse. Met w/ Dagmar, spouse Jasvir, and their son Henrik and his in ER , explained SW role. This PERINATAL TECH asked Dagmar if she wanted to talk in private w/o her family present ? Dagmar says no, I guess its okay if they stay. This PERINATAL TECH asks both Dagmar and her how it's been going at home lately? Both Dagmar and Jasvir are quite argumentative, Dagmar is passive and Jasvir is very defensive. They recently moved from [place] (where their son still lives) to live in a [place], they do not have family or friends in the area (one grandson in [facility]). Jasvir is recovering from a massive heart attack and then stroke approx 11 years ago and aDgmar has developed heart problems as well. Both will attend cardiac rehab here at soon. Both Dagmar and Jasvir seen to argue back and forth about what they need, Jasvir does not think he or Dagmar need help. Dagmar becomes a little tearful when she says she feels overwhelmed by needing to care for Jasvir like taking off and placing his compression socks. Adult son and DIL are mostly quite throughout his conversation and have no concerns to voice when asked. This PERINATAL TECH spends time in normalizing any feelings of anxiousness both Jasvir and/or Tasha are experiencing in trying to care for each, for themselves, all while adjusting to a new home and community. This PERINATAL TECH offerred the Senior Resource Guide and strongly encouraged Dagmar to write a list of items she would like assist with, that maybe Jasvir can nt help with at this time, and call one of the cg agencies to ask what the cgs can offer, what hours, cost, etc. Then strongly encouraged Dagmar to get to one of the senior centers, [facility] or [facility], the one she feels comfortable with, and ask about resources there, try to stay for lunch and talk with other women who might be going through something similar. Dagmar says she will try. This PERINATAL TECH suggested she and her ask their family for help as needed in organizing the house and garage (mentioned as a stressor for Jasvir) and other chores that are difficult for them to do alone. Dagmar appreciative and denies other needs from this PERINATAL TECH. Dagmar asked about home health, explained she is not homebound at this time and can get out to cardiac rehab, encouraged her to do so, as did family. Updated Cindy on above. Pt may be high risk for readmit w/chest pain/anxiety d/t above factors. Hopefully Dagmar will seek additional supportive in home resources w/assist and encouragement from family. Kirsten Calixto, PERINATAL TECH
== END 2018-09-23 14:17 | disposition home or self-care (01) ==
PROVIDERS: Emergency Provider Internal Medicine
DX: I48.91 Unspecified atrial fibrillation (principal); G44.52 New daily persistent headache (NDPH)
CPT/HCPCS: 36591; 70450; 80053; 82550; 84484; 85025; 85651; 86140; 93005; 99283; 99285

== ENCOUNTER 2018-11-04 09:49 | Inpatient (IN) | payer MEDICARE, SELFPAY ==
[2018-09-20 17:21] VITALS: BMI 30.8
[2018-11-04] VITALS (12 sets, daily range): BP systolic 103–130; BP diastolic 53–92; PULSE 78–122; RESP 16–24; TEMP 36.3–36.8; O2SAT 95–99; BMI 26.6
--- NOTE | 2018-11-04 09:55 | ED_ITS ---
HPI - General Adult General Chief complaint: Shortness of Breath/Dyspnea Stated complaint: sob x12 hours/left knee pain Time Seen by Provider: 11/04/18 09:55 Source: patient Mode of arrival: ambulatory Limitations: no limitations History of Present Illness HPI narrative: Patient is a 77-year-old female here for evaluation of shortness of breath for the past couple days. She denies any lightheadedness, chest pain, palpitations, has not passed out. She does have a history of paroxysmal atrial fibrillation. Is not currently on anticoagulation. Has been taking her medications. States she does not know when she is atrial fibrillation. She is scheduled to see Cardiology within the next 2 months but has not seen them up to this point. She has been admitted in the past for atrial fibrillation. No recent travel. She also describes left knee pain. She states that this is her arthritis that is causing her pain. Related Data Home Medications Medication Instructions Recorded Confirmed Vitamin C 1 tab PO DAILY 09/20/18 09/20/18 hydrocodone-acetaminophen 1 tab PO 1-2XD PRN 09/20/18 11/04/18 magnesium 1 tab PO DAILY 09/20/18 09/20/18 multivitamin 1 tab PO DAILY 09/20/18 11/04/18 potassium 1 tab PO DAILY 09/20/18 09/20/18 zolpidem 5 mg PO BEDTIME PRN 09/20/18 11/04/18 furosemide 40 mg PO DAILY 11/04/18 11/04/18 Previous Rx's Medication Instructions Recorded lisinopril 5 mg PO DAILY #30 tab 09/21/18 metoprolol tartrate 25 mg PO BID #60 tab 09/21/18 Allergies Allergy/AdvReac Type Severity Reaction Status Date / Time No Known Drug Allergies Allergy Verified 09/23/18 11:17 Review of Systems Constitutional Constitutional: Denies chills, Denies fever(s) and Denies headache(s) ENT Ears, Nose, Mouth, and Throat: Denies vertigo, Denies dizziness, Denies headache(s) and Denies disequilibrium Cardiovascular Cardiovascular: Denies chest pain, Denies palpitations, Reports dyspnea and Reports dyspnea on exertion Respiratory Respiratory: Denies cough, Reports dyspnea and Reports dyspnea on exertion Gastrointestinal Gastrointestinal: Denies abdominal pain, Denies nausea and Denies vomiting Musculoskeletal Comments: Left knee pain Integumentary/Breasts Skin/Breast: Denies lesions and Denies rash Neurologic Neurologic: Denies confusion, Denies vertigo, Denies dizziness, Denies headache(s) and Denies disequilibrium Psychiatric Psychiatric: Denies confusion Endocrine Endocrine: Denies palpitations Hematologic/Lymphatic Hematologic/Lymphatic: Denies as per HPI and Denies easy bleeding Allergic/Immunologic Allergic/Immunologic: Denies urticaria PFSH Medical History Atrial fibrillation (Chronic) Chronic headaches (Chronic) Congestive heart failure (CHF) (Chronic) H/O: hysterectomy (Chronic) Family History (Updated 09/20/18 @ 17:37 by Luis Alberto Schaefer MD) Mother No problems noted. Father Cancer Social History marital status: household members: spouse Smoking Status: Never smoker alcohol intake: current substance use type: does not use Exam Initial Vital Signs Initial Vital Signs: Vital Signs Temperature 97.4 F L 11/04/18 10:05 Pulse Rate 114 H 11/04/18 10:05 Respiratory Rate 18 11/04/18 10:05 Blood Pressure 124/82 11/04/18 10:05 Pulse Oximetry 98 11/04/18 10:05 Const General: cooperative, well developed and well groomed Orientation: alert, awake and oriented x3 HENMT Head: normal to inspection and normocephalic Chest Chest: normal inspection of the chest Resp Effort & Inspection: normal respiratory effort Auscultation: clear to auscultation bilaterally Cardio Rate: tachycardic Rhythm: abnormal rhythm Pulses: radial pulses present GI Inspection: non-distended Palpation: soft Skin Lesions: no lesions Rashes: no rashes Neuro General: alert and awake Cognition: normal cognition Speech: speech normal Gait: normal gait Extrem General: normal to inspection, capillary refill normal and No edema Other: No swelling does have tenderness to palpation around her left knee. Psych Appearance: grossly normal and well kempt Scores GCS Kiesha coma scale eye opening: Spontaneous [place] coma scale verbal response: Orientated Kiesha coma scale motor response: Obey commands Kiesha coma scale total score: 15 Course Orders Ordered: ED Orders 11/04/18 09:58 XR chest 1V Stat EKG-12 Lead Stat 11/04/18 10:15 Urine Microscopic Stat 11/04/18 10:29 B Type Natriuretic Peptide Stat Complete Blood Count AUTO DIFF Stat Comprehensive Metabolic Panel Stat Lipase Stat Partial Thromboplastin Time Stat Prothrombin Time INR Stat Thyroid Stimulating Hormone Stat Troponin I Stat Acetaminophen (Tylenol) 650 mg PO Q6HR PRN PRN Reason: As Needed for Fever/Mild Pain Apixaban (Eliquis) 5 mg PO BID PAUL Furosemide (Lasix) 40 mg PO DAILY PAUL Sodium Chloride (Normal Saline 0.9%) 1,000 mls @ 150 mls/hr IV CONT PAUL Last Infusion: 11/04/18 16:14 Dose: 0 mls/hr Documented by: Admin: 11/04/18 10:59 Dose: 150 mls/hr Documented by: MAGALI Metoprolol Tartrate (Lopressor) 25 mg PO BID PAUL Discontinued Medications Hydrocodone Bitart/Acetaminophen ([place] 5/325) 1 tab PO NOW ONE Stop: 11/04/18 11:46 Last Admin: 11/04/18 11:56 Dose: 1 tab Documented by: MAGALI Diltiazem HCl (Cardizem) 10 mg IV NOW ONE Stop: 11/04/18 10:26 Last Admin: 11/04/18 10:57 Dose: 10 mg Documented by: MAGALI Diltiazem HCl (Cardizem) 30 mg PO NOW ONE Stop: 11/04/18 12:04 Last Admin: 11/04/18 12:24 Dose: 30 mg Documented by: MAGALI Furosemide (Lasix) 40 mg IV NOW ONE Stop: 11/04/18 15:57 Last Admin: 11/04/18 16:34 Dose: 40 mg Documented by: DAJUAN Diltiazem HCl 125 mg/ Dextrose 125 mls @ 5 mls/hr IV TITRATE PAUL; Protocol Last Admin: 11/04/18 11:34 Dose: Not Given Documented by: HANS DILTIAZEM (Diltiazem 125 Mg/125 [id number]) 125 mg in 125 mls @ 5 mls/hr IV TITRATE PAUL; Protocol Last Titration: 11/04/18 12:38 Dose: 0 mg/hr, 0 mls/hr Documented by: Admin: 11/04/18 11:06 Dose: 5 mg/hr, 5 mls/hr Documented by: MAGALI Metoprolol Tartrate (Lopressor) 50 mg PO BID PAUL Vital Signs Vital signs: Vital Signs - 8 hr 11/04/18 10:57 11/04/18 11:00 11/04/18 11:30 Pulse Rate 112 H 118 H 98 H Respiratory Rate 24 18 Blood Pressure 103/63 Blood Pressure [Right Arm] 116/92 H 116/92 H Pulse Oximetry 97 95 11/04/18 12:00 11/04/18 13:00 Pulse Rate 85 89 Respiratory Rate 19 16 Blood Pressure Blood Pressure [Right Arm] 118/89 110/67 Pulse Oximetry 96 96 Medical Decision Making Lab Data Lab results reviewed: Yes I reviewed the patient's lab results. Result diagrams: 11/04/18 10:29 11/04/18 10:29 Labs: Lab Results 11/04/18 11/04/18 11/04/18 Range/Units 10:15 10:29 10:29 WBC 6.0 (4.5-11.0) X10^3/uL RBC 4.53 (4.0-5.2) X10^6/uL Hgb 13.9 (12.0-16.0) g/dL Hct 41.5 (36-46) % MCV 91.6 (80-100) fL MCH 30.6 (26-34) PG MCHC 33.4 (30-36) % RDW 14.7 (11.6-14.8) % Plt Count 247 (150-400) X10^3/uL Neut % (Auto) 62.5 (50-75) % Lymph % (Auto) 25.7 (25-40) % [place] % (Auto) 9.5 (3-14) % Eos % (Auto) 1.1 L (2-4) % Baso % (Auto) 1.2 (0-2) % Neut # (Auto) 3700 (1657-1763) /uL Lymph # (Auto) 1500 (9097-7550) /uL [place] # (Auto) 600 (0-900) /uL Eos # (Auto) 100 (0-450) /uL Baso # (Auto) 100 (0-100) /uL PT 13.6 H (10.1-12.7) SECONDS INR 1.2 (0.9-1.3) APTT 30 (26.4-36.2) SECONDS Sodium (137-145) mmol/L Potassium (3.4-5.1) mmol/L Chloride (98-107) mmol/L Carbon Dioxide (22-32) mmol/L BUN (7-17) mg/dL Creatinine (0.52-1.04) mg/dL Estimated GFR (>60) mL/min BUN/Creatinine Ratio (6-22) Glucose (80-110) mg/dL Calcium (8.4-10.2) mg/dL Total Bilirubin (0.2-1.3) mg/dL AST (14-36) IU/L ALT (9-52) IU/L Alkaline Phosphatase (38-126) U/L Troponin I (0.01-0.034) ng/mL B-Natriuretic Peptide 626 H (<100) Total Protein (6.3-8.2) g/dL Albumin (3.5-5.0) g/dL Globulin (1.7-4.1) g/dL Albumin/Globulin Ratio (1.0-2.8) Lipase (23-300) U/L TSH (0.47-4.68) uIU/mL Urine RBC 0-1/hpf (0-5/HPF) Urine WBC 0-1/hpf (0-5/HPF) Ur Squamous Epith Cells 1-5 /hpf (0-5/HPF) Urine Bacteria Many (>30) H (None) Ur Culture Indicated? Cult not indicated 11/04/18 11/04/18 Range/Units 10:29 10:29 WBC (4.5-11.0) X10^3/uL RBC (4.0-5.2) X10^6/uL Hgb (12.0-16.0) g/dL Hct (36-46) % MCV (80-100) fL MCH (26-34) PG MCHC (30-36) % RDW (11.6-14.8) % Plt Count (150-400) X10^3/uL Neut % (Auto) (50-75) % Lymph % (Auto) (25-40) % [place] % (Auto) (3-14) % Eos % (Auto) (2-4) % Baso % (Auto) (0-2) % Neut # (Auto) (3638-9311) /uL Lymph # (Auto) (1266-4299) /uL [place] # (Auto) (0-900) /uL Eos # (Auto) (0-450) /uL Baso # (Auto) (0-100) /uL PT (10.1-12.7) SECONDS INR (0.9-1.3) APTT (26.4-36.2) SECONDS Sodium 139 (137-145) mmol/L Potassium 4.2 (3.4-5.1) mmol/L Chloride 107 (98-107) mmol/L Carbon Dioxide 23 (22-32) mmol/L BUN 20 H (7-17) mg/dL Creatinine 0.70 (0.52-1.04) mg/dL Estimated GFR > 60.0 (>60) mL/min BUN/Creatinine Ratio 28.6 H (6-22) Glucose 120 H (80-110) mg/dL Calcium 9.4 (8.4-10.2) mg/dL Total Bilirubin 1.2 (0.2-1.3) mg/dL AST 144 H (14-36) IU/L ALT 139 H (9-52) IU/L Alkaline Phosphatase 118 (38-126) U/L Troponin I < 0.012 (0.01-0.034) ng/mL B-Natriuretic Peptide (<100) Total Protein 6.8 (6.3-8.2) g/dL Albumin 4.0 (3.5-5.0) g/dL Globulin 2.8 (1.7-4.1) g/dL Albumin/Globulin Ratio 1.4 (1.0-2.8) Lipase 23 (23-300) U/L TSH 1.07 (0.47-4.68) uIU/mL Urine RBC (0-5/HPF) Urine WBC (0-5/HPF) Ur Squamous Epith Cells (0-5/HPF) Urine Bacteria (None) Ur Culture Indicated? Urine Dip Bedside Urine Glucose Negative Bedside Urine Bilirubin - Negative Bedside Urine Ketone - Negative Urine Specific [place] 1.020 Bedside Urine Occult Blood + Bedside Urine pH 5.5 Bedside Urine Protein +/- 15 Bedside Urine Urobilinogen +/- 1mg Bedside Urine Nitrite - Negative Bedside Urine Leukocytes - Negative Esterase Point of care testing: Urine Dip Bedside Urine Glucose Negative Bedside Urine Bilirubin - Negative Bedside Urine Ketone - Negative Urine Specific [place] 1.020 Bedside Urine Occult Blood + Bedside Urine pH 5.5 Bedside Urine Protein +/- 15 Bedside Urine Urobilinogen +/- 1mg Bedside Urine Nitrite - Negative Bedside Urine Leukocytes - Negative Esterase Imaging Data Chest x-ray: Radiologist's impression: [address] [address] XRay Report Signed Patient: Dagmar Harvey DMR#: [id number] : 2Acct:[id number] Age/Sex: 77 / FDate of Service: 11/04/18 Loc: ED Accession Number: [id number] Procedure: XR chest 1V Ordering Provider: Jonathan Stein D.O. PROCEDURE: XR CHEST 1V INDICATIONS: Shortness of breath TECHNIQUE: One view of the chest was acquired. COMPARISON: None. FINDINGS: Surgical changes and devices: None. Lungs and pleura: No focal infiltrates are seen. Mild interstitial prominence is seen. No pleural effusions or pneumothorax. Mediastinum: Mediastinal contours appear normal. Heart size is mildly enlarged. Bones and chest wall: Age-appropriate bony degenerative changes are seen. No suspicious bony lesions. Overlying soft tissues appear unremarkable. IMPRESSION: Mild cardiomegaly and mild interstitial prominence. Please correlate with patient presentation, physical examination findings, and laboratory values for early congestive heart failure. As clinically appropriate, a short-term followup chest series (with PA and lateral views) performed in deep inspiration is suggested for further evaluation. Dictated by: Linus Veliz M.D. on 11/04/2018 at 9:20 Approved by: Linus Veliz M.D. on 11/04/2018 at 9:21 ECG Data Attestation: I personally reviewed and interpreted this ECG as follows: Prior ECG tracings: not available for review Interpretation: Atrial fibrillation Ventricular rate of 132 Normal QRS Normal QTC MDM Narrative Medical decision making narrative: Patient is in atrial fibrillation with RVR. She was treated with Cardizem bolus and then a Cardizem drip which did decrease her rate. After this she stated that her shortness of breath did seem to improve. She was not having any chest pain. She was given a dose of oral Cardizem and then the drip was stopped. I do suspect that her symptoms are related to the atrial fibrillation. Low suspicion for pneumonia. Low suspicion for ACS. Discussed the case with Dr. Loredo internal medicine who will admit the patient. Discussed the admission with the patient and her son who is at bedside. They both expressed understanding and agreement plan. Discharge Plan Departure Patient Disposition: Admitted as Observation Clinical Impression: Atrial fibrillation with rapid ventricular response Discharge Date/Time: 11/04/18 14:47 Admit Date/Time: 11/04/18 13:37 Admit Provider: Rashaun Suarez
--- NOTE | 2018-11-04 09:58 | DI.RAD.S_ITS ---
PROCEDURE: XR CHEST 1V INDICATIONS: Shortness of breath TECHNIQUE: One view of the chest was acquired. COMPARISON: None. FINDINGS: Surgical changes and devices: None. Lungs and pleura: No focal infiltrates are seen. Mild interstitial prominence is seen. No pleural effusions or pneumothorax. Mediastinum: Mediastinal contours appear normal. Heart size is mildly enlarged. Bones and chest wall: Age-appropriate bony degenerative changes are seen. No suspicious bony lesions. Overlying soft tissues appear unremarkable. IMPRESSION: Mild cardiomegaly and mild interstitial prominence. Please correlate with patient presentation, physical examination findings, and laboratory values for early congestive heart failure. As clinically appropriate, a short-term followup chest series (with PA and lateral views) performed in deep inspiration is suggested for further evaluation. Dictated by: Linus Veliz M.D. on 11/04/2018 at 9:20 Approved by: Linus Veliz M.D. on 11/04/2018 at 9:21
[2018-11-04 10:40] LABS: Add Manual Diff / Slide Review NO; Basophils Absolute Auto 100 /uL (0-100); Basophils Percent Auto 1.2 % (0-2); Eosinophils Absolute Auto 100 /uL (0-450); Eosinophils Percent Auto 1.1 % (2-4); Hematocrit 41.5 % (36-46); Hemoglobin 13.9 g/dL (12.0-16.0); Lymphocytes Absolute Auto 1500 /uL (1100-4500); Lymphocytes Percent Auto 25.7 % (25-40); Mean Corpuscular HGB Conc 33.4 % (30-36); Mean Corpuscular Hemoglobin 30.6 PG (26-34); Mean Corpuscular Volume 91.6 fL (80-100); Monocytes Absolute Auto 600 /uL (0-900); Monocytes Percent Auto 9.5 % (3-14); Neutrophils Absolute Auto 3700 /uL (1500-7000); Neutrophils Percent Auto 62.5 % (50-75); Platelet Count 247 X10^3/uL (150-400); Red Blood Cell Count 4.53 X10^6/uL (4.0-5.2); Red Cell Distribution Width 14.7 % (11.6-14.8)
[2018-11-04 10:46] LABS: INR 1.2 (0.9-1.3); Prothrombin Time 13.6 SECONDS (10.1-12.7)
[2018-11-04 10:49] LABS: PTT Partial Thromboplastin Tim 30 SECONDS (26.4-36.2)
[2018-11-04 10:52] LABS: Alanine Aminotransferase 139 IU/L (9-52); Albumin Globulin Ratio 1.4 (1.0-2.8); Alkaline Phosphatase 118 U/L (38-126); Aspartate Aminotransferase 144 IU/L (14-36); BUN Creatinine Ratio 28.6 (6-22); Bilirubin Total 1.2 mg/dL (0.2-1.3); Blood Urea Nitrogen 20 mg/dL (7-17); Calcium 9.4 mg/dL (8.4-10.2); Carbon Dioxide 23 mmol/L (22-32); Chloride 107 mmol/L (98-107); Estimated Glomerular Filt Rate > 60.0 mL/min (>60); Globulin 2.8 g/dL (1.7-4.1); Glucose 120 mg/dL (80-110); HEMOLYSIS 19 (0-50); Lipase 23 U/L (23-300); Potassium 4.2 mmol/L (3.4-5.1); Sodium 139 mmol/L (137-145); Total Protein 6.8 g/dL (6.3-8.2)
[2018-11-04] MEDS: dilTIAZem 5 MG/ML SDV 10 MG IV (10:57)
[2018-11-04] MEDS: SODIUM CHLORIDE 0.9% 1,000 ML 150 ML IV (10:59)
[2018-11-04 11:00] LABS: B Type Natriuretic Peptide 626 (<100)
[2018-11-04 11:04] LABS: Troponin I < 0.012 ng/mL (0.01-0.034)
[2018-11-04] MEDS: DILTIAZEM 125 MG/125 ML PIGGYBACK IV (11:06)
[2018-11-04 11:13] LABS: Bacteria Urine Many (>30); RBC Urine 0-1/HPF (0-5/HPF); Squamous Epithelial Cell Urine 1-5 /HPF (0-5/HPF); WBC Urine 0-1/HPF (0-5/HPF)
[2018-11-04 11:14] LABS: Culture Indicated Urine Cult Not Indicated
[2018-11-04 11:23] LABS: Thyroid Stimulating Hormone 1.07 uIU/mL (0.47-4.68)
[2018-11-04] MEDS: HYDROCODONE/ACET 5/325 TABLET 1 TAB PO ×2 (11:56→20:49)
[2018-11-04] MEDS: dilTIAZem 30 MG TABLET PO (12:24)
--- NOTE | 2018-11-04 15:03 | DI.ECHO.S_ITS ---
[facility]---------+ [facility] +---------+ : : [address] : : : : [id number] : : : : Phone: [phone] Echocardiogram Report + + :Name: WILLIAM NEGRETE Study Date: 11/05/2018 Height: 65 in : :[facility] Exam Location: IS Weight: 160 lb : : Gender: Female BSA: 1.8 m2 : :: 1940 Age: 77 yrs BP: 103/75 mmHg: :Reason For Study: AFIB RVR : : Performed By: Alberto Chavarria : :Referring: PERCY ROBLES : + + Interpretation Summary The left ventricle is normal in size. Left ventricular ejection fraction is estimated to be 35 +/- 5%. There is moderate global hypokinesis of the left ventricle. There is inferior wall severe hypokinesis. Compared to the prior exam, the left ventricular function is reduced. Right ventricular systolic function is moderately reduced. Right ventricular systolic function has decreased since previous exam. There is moderate to severe mitral regurgitation. Compared to the prior echo study, there has been an increase in the severity of mitral regurgitation. No obvious mitral valve prolapse or vegetation or flail leaflets. Mitral regurgitation appears to be secondary. Left atrium is significantly enlarged. There is moderate tricuspid regurgitation. Compared to the prior echo exam, there has been no change in TR severity. The right ventricular systolic pressure is estimated to be at least 23 mmHg based on an estimated right atrial pressure of 3 mm Hg. The IVC is of normal diameter and collapses greater than 50% with a sniff. This suggests a low right atrial pressure of 3 mm Hg. Right atrial pressure decreased from the previous study. Patient is in A. fib. The patient had a heart rate of 86-116 beats per minute. In previous study ventricular rate was better controlled. Procedure: A two-dimensional transthoracic echocardiogram with color flow and Doppler was performed. The study quality was technically adequate. Comparison is made with the echocardiogram of 09/21/18. Patient is in A. fib. The patient had a heart rate of 86-116 beats per minute. Left Ventricle: The left ventricle is normal in size. There is normal left ventricular wall thickness. There is no thrombus. Left ventricular ejection fraction is estimated to be 35 +/- 5%. Compared to the prior exam, the left ventricular function is reduced. There is moderate global hypokinesis of the left ventricle. There is inferior wall severe hypokinesis. Diastolic function could not be accurately assessed due to atrial fibrillation. Right Ventricle: The right ventricle is normal size. Right ventricular systolic function is moderately reduced. Right ventricular systolic function has decreased since previous exam. Atria: Both atria are severely dilated. Both atria have remained unchanged in size since the prior echo exam. The interatrial septum is intact with no evidence for an atrial septal defect. Mitral Valve: The mitral valve leaflets appear borderline thickened, but open well. The mitral valve leaflets are slightly calcified. There is moderate to severe mitral regurgitation. Compared to the prior echo study, there has been an increase in the severity of mitral regurgitation. Aortic Valve: The aortic valve is trileaflet. The aortic valve opens well. There is no aortic valve stenosis. No aortic regurgitation is present. Tricuspid Valve: The tricuspid valve is normal. There is moderate tricuspid regurgitation. The right ventricular systolic pressure is estimated to be at least 23 mmHg based on an estimated right atrial pressure of 3 mm Hg. Compared to the prior echo exam, there has been no change in TR severity. Pulmonic Valve: The pulmonic valve is normal in structure and function. There is trace pulmonic regurgitation. Great Vessels: The aortic root is normal size. The dimensions of the ascending aorta are normal. The pulmonary artery is normal size. The IVC is of normal diameter and collapses greater than 50% with a sniff. This suggests a low right atrial pressure of 3 mm Hg. Pericardium/ Pleura There is no pericardial effusion. There is no pleural effusion. MMode/2D Measurements & Calculations LVIDd: 4.8 cm LVOT diam: 2.0 cm LVIDs: 3.8 cm Ao root diam: 3.1 cm FS: 21.3 % Aortic Jxn: 2.3 cm EPSS: 0.82 cm asc Aorta Diam: 3.4 cm IVSd: 0.97 cm Ao Arch Diam (Prox Trans): 2.5 cm LVPWd: 0.85 cm LV sepulveda. diameter/BSA (cm/m^2): 2.7 LV sys. diameter/BSA (cm/m^2): 2.1 LA dimension: 4.4 cm RA long axis: 5.1 cm LA A2 area: 28.4 cm2 RA area: 23.3 cm2 LA A4 area: 25.5 cm2 RA vol: 90.0 ml LA length (vol): 6.2 cm RA : 50.0 ml/m2 LA vol: 99.6 ml IVC diam: 1.9 cm LA vol index: 55.3 ml/m2 RVD1 (basal): 3.7 cm RVD2 (mid): 3.6 cm Doppler Measurements & Calculations Ao V2 max: 88.0 cm/sec LVOT Max Juan: 76.1 cm/sec Ao V2 mean: 70.4 cm/sec LV V1 max P.3 mmHg Ao max P.1 mmHg LV V1 VTI: 13.6 cm Ao mean P.0 mmHg LAURA(I,D): 2.9 cm2 Ao V2 VTI: 13.9 cm LAURA(V,D): 2.6 cm2 sev ratio: 0.97 LAURA indexed to BSA (cm^2/m^2): 1.6 MV E max juan: 97.0 cm/sec TR max juan: 222.4 cm/sec MV A max juan: 2.5 cm/sec TR max P.8 mmHg MV E/A: 39.2 PA V2 max: 35.2 cm/sec Med Peak E' Juan: 4.4 cm/sec PA V2 mean: 27.8 cm/sec E/E' med: 21.9 PA mean P.33 mmHg Lat Peak E' Juan: 10.4 cm/sec PA pr(Accel): 49.1 mmHg E/E' lat: 9.3 PA Accel Time: 0.07 sec E/e' average: 15.6 MV dec time: 0.13 sec SV(LVOT): 41.0 ml Reading Physician:02:06 PM
--- NOTE | 2018-11-04 15:39 | PM.HP.1 ---
History of Present Illness History of Present Illness Date Patient Seen: 11/04/18 Time Patient Seen: 15:40 Chief complaint: sob x12 hours/left knee pain Narrative: Tasha Harvey is a 77-year-old female with past medical history of CHFrEF, paroxysmal AFib who presented with 2 days of shortness of breath on exertion, and fatigue. Patient states that over the past 2 days she has noted worsening dyspnea on exertion to the point of getting short of breath on a few steps, she also notes a chronic cough, but denies any lower extremity edema or orthopnea. She has had occasional palpitations and minimal chest pains that have resolved without any interventions. She was recently admitted in September of this year for an exacerbation of heart failure and AFib with RVR which improved after diuresis. She was discharged on lisinopril metoprolol, and Lasix which she states that she is only taking intermittently. She has not followed up with a customer care associate since her last discharge, but has an appointment for next month. She apparently denies any chest pain, shortness of breath, abdominal pain, nausea, vomiting, headaches, lower extremity edema. She denies any other complaints at this time. In the ED, her EKG showed AFib with RVR, reportedly as fast as the 140s per ED provider. She was given 10 mg of diltiazem, and started on a diltiazem infusion. She was then started on oral diltiazem after rapid improvement. Upon arrival to the floor, her heart rate was improved, but given history of low ejection fraction, she will be transitioned to metoprolol tonight. I have further discussed anticoagulation with the patient and she is agreeable to starting this tonight. I have counseled her on the importance of continued medication compliance, and she understands now. I will order an echocardiogram, and she will likely be discharged tomorrow. She is admitted to Medicine under observation status for AFib with RVR. Patient History Medical History (Updated 11/04/18 @ 10:26 by Jonathan Stein DO) Atrial fibrillation (Chronic) Chronic headaches (Chronic) Congestive heart failure (CHF) (Chronic) H/O: hysterectomy (Chronic) Family & Social History Family History (Updated 09/20/18 @ 17:37 by Luis Alberto Schaefer MD) Mother No problems noted. Father Cancer Social History: household members spouse Safety & Behavioral: Feels Safe in Current Yes Environment Been Physically Hurt or No Threatened By a Person Tobacco & Substance use: Smoking Status Unknown if ever smoked alcohol intake current alcohol intake frequency 0-2 drinks per day Substance Use Type does not use Meds Home Medications and Allergies Home Medications Medication Instructions Recorded Confirmed Type Headache Relief ([id number]) 1 packet PO PRN PRN 09/20/18 09/20/18 History Vitamin C 1 tab PO DAILY 09/20/18 09/20/18 History hydrocodone-acetaminophen 1 tab PO 1-2XD PRN 09/20/18 09/20/18 History magnesium 1 tab PO DAILY 09/20/18 09/20/18 History multivitamin 1 tab PO DAILY 09/20/18 09/20/18 History potassium 1 tab PO DAILY 09/20/18 09/20/18 History zolpidem 5 mg PO BEDTIME PRN 09/20/18 11/04/18 History lisinopril 5 mg PO DAILY #30 tab 09/21/18 11/04/18 Rx metoprolol tartrate 25 mg PO BID #60 tab 09/21/18 11/04/18 Rx furosemide 40 mg PO DAILY 11/04/18 11/04/18 History Allergies Allergy/AdvReac Type Severity Reaction Status Date / Time No Known Drug Allergies Allergy Verified 09/23/18 11:17 Review of Systems Review of Systems Narrative: All other systems reviewed with the patient and are negative unless otherwise stated. Exam Vital Signs (past 8 hours): - 11/04/18 10:05 11/04/18 10:57 11/04/18 11:00 Temperature 97.4 F L Pulse Rate 114 H 112 H 118 H Respiratory Rate 18 24 Blood Pressure 124/82 103/63 Blood Pressure [Right Arm] 116/92 H Pulse Oximetry 98 97 11/04/18 11:30 11/04/18 12:00 11/04/18 13:00 Temperature Pulse Rate 98 H 85 89 Respiratory Rate 18 19 16 Blood Pressure Blood Pressure [Right Arm] 116/92 H 118/89 110/67 Pulse Oximetry 95 96 96 11/04/18 14:16 11/04/18 14:50 Temperature 97.7 F Pulse Rate 98 H 120 H Respiratory Rate 18 19 Blood Pressure 124/84 Blood Pressure [Right Arm] 130/82 Pulse Oximetry 95 98 Oxygen Delivery Method Room Air Oxygen Flow Rate 0 Narrative Exam Narrative: GENERAL APPEARANCE: Well developed, well nourished, in no acute distress. SKIN: Inspection of the skin reveals no rashes, ulcerations or petechiae. HEENT: The sclerae were anicteric and conjunctivae were pink and moist. Extraocular movements were intact and pupils were equal, round with normal accommodation. External inspection of the ears and nose showed no scars, lesions, or masses. Lips, teeth, and gums showed normal mucosa. The oral mucosa, hard and soft palate, tongue and posterior pharynx were unremarkable. NECK: Supple and symmetric. There was no thyroid enlargement, and no tenderness, or masses were felt. + JVD CHEST: Normal AP diameter and normal contour without any kyphoscoliosis. LUNGS: Auscultation of the lungs revealed no wheezes, rhonchi but there were bibasilar rales. CARDIOVASCULAR: There was a regular rate and rhythm without any murmurs, gallops, rubs. Peripheral pulses were 2+ and symmetric. ABDOMEN: Soft and nontender with normal bowel sounds. No ascites was noted. MUSCULOSKELETAL: There was no tenderness or effusions noted. Muscle strength and tone were normal. EXTREMITIES: No cyanosis, clubbing. 1+ edema bilateral lower extremities. NEUROLOGIC: Alert and oriented x 3. Normal affect. Gait was normal. Strength is +5/5 in the Upper Extremities and Lower Extremities Bilaterally. Sensation to touch was normal. Objective Labs Result Diagrams: 11/04/18 10:29 11/04/18 10:29 Labs: Laboratory Results - last 24 hr 11/04/18 11/04/18 11/04/18 10:15 10:29 10:29 WBC 6.0 RBC 4.53 Hgb 13.9 Hct 41.5 MCV 91.6 MCH 30.6 MCHC 33.4 RDW 14.7 Plt Count 247 Neut % (Auto) 62.5 Lymph % (Auto) 25.7 [place] % (Auto) 9.5 Eos % (Auto) 1.1 L Baso % (Auto) 1.2 Neut # (Auto) 3700 Lymph # (Auto) 1500 [place] # (Auto) 600 Eos # (Auto) 100 Baso # (Auto) 100 PT 13.6 H INR 1.2 APTT 30 Sodium Potassium Chloride Carbon Dioxide BUN Creatinine Estimated GFR BUN/Creatinine Ratio Glucose Calcium Total Bilirubin AST ALT Alkaline Phosphatase Troponin I B-Natriuretic Peptide 626 H Total Protein Albumin Globulin Albumin/Globulin Ratio Lipase TSH Urine RBC 0-1/hpf Urine WBC 0-1/hpf Ur Squamous Epith Cells 1-5 /hpf Urine Bacteria Many (>30) H Ur Culture Indicated? Cult not indicated 11/04/18 11/04/18 10:29 10:29 WBC RBC Hgb Hct MCV MCH MCHC RDW Plt Count Neut % (Auto) Lymph % (Auto) [place] % (Auto) Eos % (Auto) Baso % (Auto) Neut # (Auto) Lymph # (Auto) [place] # (Auto) Eos # (Auto) Baso # (Auto) PT INR APTT Sodium 139 Potassium 4.2 Chloride 107 Carbon Dioxide 23 BUN 20 H Creatinine 0.70 Estimated GFR > 60.0 BUN/Creatinine Ratio 28.6 H Glucose 120 H Calcium 9.4 Total Bilirubin 1.2 AST 144 H ALT 139 H Alkaline Phosphatase 118 Troponin I < 0.012 B-Natriuretic Peptide Total Protein 6.8 Albumin 4.0 Globulin 2.8 Albumin/Globulin Ratio 1.4 Lipase 23 TSH 1.07 Urine RBC Urine WBC Ur Squamous Epith Cells Urine Bacteria Ur Culture Indicated? Assessment & Plan Assessment & Plan narrative: Tasha Harvey is a 77-year-old female with past medical history of CHFrEF, paroxysmal AFib who presented with 2 days of shortness of breath on exertion, and fatigue admitted under observation status for AFib with RVR, and CHF exacerbation. 1. Paroxysmal atrial fibrillation with rapid ventricular response, acute, present on admission -patient has a significant history of AFib and was recently admitted in September for similar presentation. She has not been compliant with medications, including beta-alysha and diuretics. This is the likely cause of her symptoms. -patient was started on diltiazem drip, and then given oral dose. Will wait 6 hours after oral dose and start metoprolol tonight at previous home dosing of 25 mg b.i.d. -now that her heart rate has improved, will order a TTE to see if ejection fraction has changed since last admission. -her chads Vasc score is 4, I discussed extensively with the patient and she agrees to anticoagulation, will start Eliquis tonight. -Will order recent TSH, A1c, and lipid panel. 2. Decompensated systolic heart failure - EF of 25% last admission. Appears slightly overloaded on exam today in setting of medication noncompliance. -give IV Lasix 40 mg tonight -resume home dose of 40 mg daily tomorrow. -TTE as noted above -continue home metoprolol as above and lisinopril 5 mg. DVT: will start eliquis tonight Code: Full FEN/GI: Heart healthy diet Dispo: Admitted under observation status with her expected stay is less than 2 midnights. Scores CHADS-VASc Congestive heart failure: yes Hypertension: no Age 75 years or older: yes Diabetes mellitus: no Stroke, TIA, or TE: no Vascular disease: no Age 65 to 74 years: no Sex category (female): Female CHADS-VASc Score: 4
[2018-11-04] MEDS: FUROSEMIDE 40 MG/4 ML VIAL IV (16:34)
--- NOTE | 2018-11-04 19:25 | PC.NURSE ---
HR pt up to ambulate around nurses station approx 1915 and HR noted to be between 130-140 with activity. pt denies feeling symptomatic. HR decreases to 100-110s upon rest. As pt was medicated with IV lasix, she is up to BR frequently and HR increases each time. notified of above and no further orders were received and MD states to give Metoprolol with HS meds as ordered.
[2018-11-04] MEDS: APIXABAN 5 MG TABLET PO (20:49)
[2018-11-04] MEDS: METOPROLOL IR 50 MG TABLET 25 MG PO (20:50)
[2018-11-04] MEDS: ZOLPIDEM 5 MG TABLET PO (22:18)
[2018-11-05] VITALS (10 sets, daily range): BP systolic 103–130; BP diastolic 65–89; PULSE 90–137; RESP 18; TEMP 36.4–37.3; O2SAT 92–95
[2018-11-05] MEDS: HYDROCODONE/ACET 5/325 TABLET 1 TAB PO ×2 (04:26→15:23)
[2018-11-05] MEDS: dilTIAZem 5 MG/ML SDV 10 MG IV (05:14)
[2018-11-05 05:21] LABS: INR 1.3 (0.9-1.3); Prothrombin Time 15.6 SECONDS (10.1-12.7)
[2018-11-05 05:22] LABS: Add Manual Diff / Slide Review NO; Basophils Absolute Auto 100 /uL (0-100); Eosinophils Absolute Auto 200 /uL (0-450); Eosinophils Percent Auto 3.4 % (2-4); Hematocrit 42.2 % (36-46); Hemoglobin 14.1 g/dL (12.0-16.0); Lymphocytes Absolute Auto 1700 /uL (1100-4500); Lymphocytes Percent Auto 26.3 % (25-40); Mean Corpuscular HGB Conc 33.3 % (30-36); Mean Corpuscular Hemoglobin 30.6 PG (26-34); Mean Corpuscular Volume 91.8 fL (80-100); Monocytes Absolute Auto 600 /uL (0-900); Monocytes Percent Auto 9.7 % (3-14); Neutrophils Absolute Auto 3900 /uL (1500-7000); Neutrophils Percent Auto 59.6 % (50-75); Platelet Count 249 X10^3/uL (150-400); Red Cell Distribution Width 14.9 % (11.6-14.8); White Blood Cell Count 6.5 X10^3/uL (4.5-11.0)
[2018-11-05 05:24] LABS: PTT Partial Thromboplastin Tim 34 SECONDS (26.4-36.2)
[2018-11-05 05:29] LABS: Hemoglobin A1C% w Est Avg Glu 5.3 % (4.0-6.0)
[2018-11-05 05:30] LABS: BUN Creatinine Ratio 25.7 (6-22); Blood Urea Nitrogen 18 mg/dL (7-17); Calcium 9.6 mg/dL (8.4-10.2); Carbon Dioxide 25 mmol/L (22-32); Chloride 105 mmol/L (98-107); Cholesterol 155 mg/dL (140-199); Estimated Glomerular Filt Rate > 60.0 mL/min (>60); Glucose 121 mg/dL (80-110); HDL Cholesterol 51 mg/dL (40-60); HEMOLYSIS < 15 (0-50); LDL Cholesterol Calculated 71 mg/dL (<100); Magnesium 1.8 mg/dL (1.6-2.3); Potassium 3.7 mmol/L (3.4-5.1); Sodium 139 mmol/L (137-145); Triglycerides 165 mg/dL (35-150)
--- NOTE | 2018-11-05 05:31 | PC.NURSE ---
Pt has not slept, HR steadily increasing, Jinny BARONE called and orders received to give 10mg IV Diltiazem x1. It was given with about a 15 to 20 min drop in HR to 90's to 100's. Pt was talking about earlier in evening when she perceived a democrat going on in her room, and wanted to know if it was real. I reassured her that since 2300 there has been no democrat and she has been unable to sleep, getting up every 15-30 min with reslessness and for the good of her heart she should try to rest. Dar[place] voiced her concerns that a DrRogerio would be in today and I assured her one would be.
[2018-11-05 06:02] LABS: TSH w/ Reflex to FT4 2.52 uIU/mL (0.47-4.68)
[2018-11-05] MEDS: APIXABAN 5 MG TABLET PO ×2 (08:39→20:47)
[2018-11-05] MEDS: METOPROLOL IR 50 MG TABLET 25 MG PO (08:39)
[2018-11-05] MEDS: FUROSEMIDE 40 MG TABLET PO (08:39)
--- NOTE | 2018-11-05 11:33 | CM.DANOTE ---
Addendum entered by Brenna Barker LPN 11/05/18 15:18: UR RN Kevin now confirms admission status has changed to INPT: as of 11/05. ECHO is back and showing some irregularities and pt will continue to stay on in the hospital for treatment. Original Note: Discharge Planning/Care Management DCP: assessment: case received, EMR reviewed and met with pt. Introduced self and role. Pt is a 77 year old female who has recently moved from [place] to [place] with her . Both are newly established with Dr. Eaton as of 10/08/18 at the [facility]. Pt has a new pt appt. with music orchestrator: Dr. Arnett for December 21. She already had a referral for cardiac rehab from a music orchestrator in [place] and she goes this week to Cardiac Rehab for the initial assessment. Her is already going there and she says she is looking forward to this. Admitted to care of hospitalist team yesterday afternoon. Admission status: OBS: confirmed by [facility] RN team. Payer: Medicare and AARP Pt says they are very pleased to be in [place] and we have a great house. 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 She was given the Senior Resource Booklet for [place] [id number] by BENNY Light when she was in the ER 09-23 as well as ideas re how to settle into her new community. P: is for pt to d/c home when stable for same. Will follow prn for any d/c needs that may arise. CM Discharge Assessment Start: 11/05/18 11:29 Freq: Status: Active Protocol: Document 11/05/18 11:30 ITV (Rec: 11/05/18 11:32 ITV [id number]) Discharge Planning Assessment Advance Directives? Yes History Provided By Patient,Medical Record Has Patient been admitted in last 30 No days? Comment Last admission here was ER on 09/23: BENNY Nadege saw pt and her family. Acute care admission: 09/21 Prior Living Arrangements House Household Members spouse Independent with ADL's Yes Is patient alert and oriented? Yes Whiteboard Updated in Patient Room with Yes name and ext. 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
[2018-11-05 12:12] LABS: Alanine Aminotransferase 114 IU/L (9-52); Albumin 4.1 g/dL (3.5-5.0); Albumin Globulin Ratio 1.5 (1.0-2.8); Alkaline Phosphatase 112 U/L (38-126); Aspartate Aminotransferase 71 IU/L (14-36); Bilirubin Total 0.7 mg/dL (0.2-1.3); Bilirubin Unconjugated 0.4 mg/dL (0.0-1.1); Globulin 2.8 g/dL (1.7-4.1); HEMOLYSIS < 15 (0-50); Total Protein 6.9 g/dL (6.3-8.2)
--- NOTE | 2018-11-05 15:36 | PC.NURSE ---
Provided pt with extensive verbal education regarding disease process, medications, parameters, goals, etc. Pt states she did not know she had a heart problem. Reminded pt of recent previous hospitalization for same dx which seemed to jog her memory a bit. Pt verbalizes understanding of education but asks repetitive questions regarding dx despite reminders. No family present for formal teaching at this time. Will continue to educate as able.
--- NOTE | 2018-11-05 15:52 | PM.PN.1 ---
Subjective Subjective Date Patient Seen: 11/05/18 Time Patient Seen: 10:50 Interval history: Tasha Harvey is a 77-year-old female with past medical history of CHFrEF, paroxysmal AFib who presented with 2 days of shortness of breath on exertion, and fatigue admitted under observation status for AFib with RVR, and CHF exacerbation, she is changed to inpatient as her TTE showed new reduced EF of 35% and her afib has uncontrolled today. Overnight she had another episode of AFib with RVR and was given IV push diltiazem 10 mg. She states that she did not sleep much overnight and feels bad this morning, but she denies chest pain to me but does endorse fatigue and occasional shortness of breath. She does not feel palpitations. She denies any lower extremity edema, and orthopnea. She does not feel improved today. Exam Vital Signs (past 8 hours): - 11/05/18 08:30 11/05/18 08:42 11/05/18 11:31 Temperature 97.6 F 99.2 F Pulse Rate 117 H 92 H Respiratory Rate 18 18 Blood Pressure 126/89 118/76 Pulse Oximetry 93 93 92 Oxygen Delivery Method Room Air Oxygen Flow Rate 0 Narrative Exam Narrative: GENERAL APPEARANCE: Well developed, well nourished, in no acute distress. SKIN: Inspection of the skin reveals no rashes, ulcerations or petechiae. HEENT: The sclerae were anicteric and conjunctivae were pink and moist. Extraocular movements were intact and pupils were equal, round with normal accommodation. External inspection of the ears and nose showed no scars, lesions, or masses. Lips, teeth, and gums showed normal mucosa. The oral mucosa, hard and soft palate, tongue and posterior pharynx were unremarkable. NECK: Supple and symmetric. There was no thyroid enlargement, and no tenderness, or masses were felt. No JVD. CHEST: Normal AP diameter and normal contour without any kyphoscoliosis. LUNGS: Auscultation of the lungs revealed no wheezes, rhonchi but there were bibasilar rales. CARDIOVASCULAR: There was an irregularly irregular rhythm with normal rate and no murmurs, gallops, rubs. Peripheral pulses were 2+ and symmetric. ABDOMEN: Soft and nontender with normal bowel sounds. No ascites was noted. MUSCULOSKELETAL: There was no tenderness or effusions noted. Muscle strength and tone were normal. EXTREMITIES: No cyanosis, clubbing. 1+ edema bilateral lower extremities, slightly improved today. NEUROLOGIC: Alert and oriented x 3. Normal affect. Gait was normal. Strength is +5/5 in the Upper Extremities and Lower Extremities Bilaterally. Sensation to touch was normal. Objective Labs Result Diagrams: 11/05/18 04:50 11/05/18 04:50 Labs: Laboratory Results - last 24 hr 11/05/18 11/05/18 11/05/18 04:50 04:50 04:50 WBC 6.5 RBC 4.60 Hgb 14.1 Hct 42.2 MCV 91.8 MCH 30.6 MCHC 33.3 RDW 14.9 H Plt Count 249 Neut % (Auto) 59.6 Lymph % (Auto) 26.3 [place] % (Auto) 9.7 Eos % (Auto) 3.4 Baso % (Auto) 1.0 Neut # (Auto) 3900 Lymph # (Auto) 1700 [place] # (Auto) 600 Eos # (Auto) 200 Baso # (Auto) 100 PT 15.6 H INR 1.3 APTT 34 D Sodium 139 Potassium 3.7 Chloride 105 Carbon Dioxide 25 BUN 18 H Creatinine 0.70 Estimated GFR > 60.0 BUN/Creatinine Ratio 25.7 H Glucose 121 H Hemoglobin A1c Calcium 9.6 Magnesium 1.8 Total Bilirubin Conjugated Bilirubin Unconjugated Bilirubin AST ALT Alkaline Phosphatase Total Protein Albumin Globulin Albumin/Globulin Ratio Triglycerides 165 H Cholesterol 155 LDL Cholesterol, Calc 71 HDL Cholesterol 51 TSH 11/05/18 11/05/18 11/05/18 04:50 04:50 04:50 WBC RBC Hgb Hct MCV MCH MCHC RDW Plt Count Neut % (Auto) Lymph % (Auto) [place] % (Auto) Eos % (Auto) Baso % (Auto) Neut # (Auto) Lymph # (Auto) [place] # (Auto) Eos # (Auto) Baso # (Auto) PT INR APTT Sodium Potassium Chloride Carbon Dioxide BUN Creatinine Estimated GFR BUN/Creatinine Ratio Glucose Hemoglobin A1c 5.3 Calcium Magnesium Total Bilirubin 0.7 Conjugated Bilirubin 0.0 Unconjugated Bilirubin 0.4 AST 71 H ALT 114 H Alkaline Phosphatase 112 Total Protein 6.9 Albumin 4.1 Globulin 2.8 Albumin/Globulin Ratio 1.5 Triglycerides Cholesterol LDL Cholesterol, Calc HDL Cholesterol TSH 2.52 Assessment & Plan Assessment & Plan narrative: Tasha Harvey is a 77-year-old female with past medical history of CHFrEF, paroxysmal AFib who presented with 2 days of shortness of breath on exertion, and fatigue admitted under observation status for AFib with RVR, and CHF exacerbation. 1. Paroxysmal atrial fibrillation with rapid ventricular response, acute, present on admission -patient has a significant history of AFib and was recently admitted in September for similar presentation. She has not been compliant with medications, including beta-alysha and diuretics. This is the likely cause of her symptoms. -Patient does not have good control on her home dose of metoprolol, and patient complains of profound fatigue. Will attempt coreg tonight with increased dosing. Avoiding diltiazem in setting of reduced EF. - coreg 25 mg BID starting tonight. - started eliquis for AC given CHADS-VaSC of 4. Patient agreeable to this medication. - once improved she will need outpatient cardiology evaluation for possible ischemic workup. - continue telemetry. 2. Decompensated systolic heart failure - EF of 25% at [facility] which improved to 50% on prior admission in September. Now reduced again to 35% possibly in setting of currently uncontrolled Afib. Today she appears more euvolemic. -resume home dose of 40 mg daily PO -TTE as noted above -continue coreg and lisinopril 5 mg. DVT: will start eliquis tonight Code: Full FEN/GI: Heart healthy diet Dispo: Changed to inpatient today as her stay is expected to exceed 2 midnights. Quality VTE Deep Vein Thrombosis/Pulmonary Embolism Present on Admission: No
[2018-11-05] MEDS: CARVEDILOL 25 MG TABLET PO (20:47)
[2018-11-05] MEDS: SODIUM CHLORIDE 0.9% FLUSH 10 ML IV (20:47)
[2018-11-05] MEDS: SENNOSIDES 8.6 MG TABLET PO (20:47)
[2018-11-06] VITALS (11 sets, daily range): BP systolic 93–128; BP diastolic 54–82; PULSE 76–113; RESP 14–18; TEMP 36.4–37.1; O2SAT 95–98
[2018-11-06] MEDS: HYDROCODONE/ACET 5/325 TABLET 1 TAB PO (01:06)
[2018-11-06 05:27] LABS: Add Manual Diff / Slide Review NO; Basophils Absolute Auto 100 /uL (0-100); Basophils Percent Auto 0.9 % (0-2); Eosinophils Absolute Auto 200 /uL (0-450); Eosinophils Percent Auto 3.8 % (2-4); Hemoglobin 14.3 g/dL (12.0-16.0); Lymphocytes Absolute Auto 2000 /uL (1100-4500); Lymphocytes Percent Auto 33.6 % (25-40); Mean Corpuscular HGB Conc 33.3 % (30-36); Mean Corpuscular Hemoglobin 30.5 PG (26-34); Mean Corpuscular Volume 91.6 fL (80-100); Monocytes Absolute Auto 600 /uL (0-900); Neutrophils Absolute Auto 3100 /uL (1500-7000); Neutrophils Percent Auto 51.7 % (50-75); Platelet Count 265 X10^3/uL (150-400); Red Blood Cell Count 4.69 X10^6/uL (4.0-5.2); Red Cell Distribution Width 14.9 % (11.6-14.8); White Blood Cell Count 6.1 X10^3/uL (4.5-11.0)
[2018-11-06 05:29] LABS: INR 1.4 (0.9-1.3); Prothrombin Time 15.6 SECONDS (10.1-12.7)
[2018-11-06 05:32] LABS: PTT Partial Thromboplastin Tim 35 SECONDS (26.4-36.2)
[2018-11-06 05:36] LABS: BUN Creatinine Ratio 28.8 (6-22); Blood Urea Nitrogen 23 mg/dL (7-17); Calcium 9.3 mg/dL (8.4-10.2); Carbon Dioxide 29 mmol/L (22-32); Chloride 103 mmol/L (98-107); Estimated Glomerular Filt Rate > 60.0 mL/min (>60); Glucose 106 mg/dL (80-110); HEMOLYSIS < 15 (0-50); Magnesium 1.8 mg/dL (1.6-2.3); Sodium 138 mmol/L (137-145)
--- NOTE | 2018-11-06 06:50 | PC.NURSE ---
Patient is oriented x4, but remains impulsive and resistive to some care, bed alarm on because she will not always use call light. A-fib RVR, rate 100-140, denies chest pain, palpitations, dizziness, or shortness of breath. RA 95%, bases diminished, otherwise breath sounds are clear. Vicodin given x1 for back pain, effective, declined use of K-pad.
[2018-11-06] MEDS: SODIUM CHLORIDE 0.9% FLUSH 10 ML IV ×2 (08:20→21:06)
[2018-11-06] MEDS: CARVEDILOL 25 MG TABLET PO (08:20)
[2018-11-06] MEDS: APIXABAN 5 MG TABLET PO ×2 (08:20→21:06)
[2018-11-06] MEDS: FUROSEMIDE 40 MG TABLET PO (08:20)
[2018-11-06] MEDS: FUROSEMIDE 40 MG/4 ML VIAL IV (11:58)
--- NOTE | 2018-11-06 15:15 | P.PN_ITS ---
Subjective Subjective Date Patient Seen: 11/06/18 Interval history: The patient is a 77-year-old female who was admitted to the hospital for paroxysmal atrial fibrillation with a rapid ventricular response rate, also with congestive heart here due to a reduced ejection fraction. Patient reports she feels very tired from the increasing dose of Coreg. She previously was on metoprolol and feels that she did not tolerate that as well. She also was on amiodarone. That was discontinued due to poor tolerance. The patient admits that she is reluctant to take medications. She is concerned that the medications make her feel worse and that she has poor energy. She denies any shortness of breath at rest. With minimal exertion her heart rate increases to 130s to 150s. She reluctantly agreed to try metoprolol as we titrate the metoprolol and discontinue Coreg. Exam Vital Signs (past 8 hours): - 11/06/18 08:00 11/06/18 08:29 11/06/18 12:00 Temperature 97.5 F L 98.7 F Pulse Rate 101 H 96 H Respiratory Rate 14 15 Blood Pressure 93/69 101/73 Pulse Oximetry 96 96 96 Oxygen Delivery Method Room Air Oxygen Flow Rate 0 Narrative Exam Narrative: Elderly female resting in bed in no obvious distress Lungs: Decreased breath sounds with bibasilar crackles noted Cardiac exam: Irregularly irregular normal S1-S2 with a 2/6 systolic ejection murmur Abdomen: Soft and nontender nondistended without hepatosplenomegaly Extremities: No edema Skin exam: No lesions noted Neuro exam: Nonfocal Objective Labs Result Diagrams: 11/06/18 05:05 11/06/18 05:05 Labs: Laboratory Results - last 24 hr 11/06/18 11/06/18 11/06/18 05:05 05:05 05:05 WBC 6.1 RBC 4.69 Hgb 14.3 Hct 43.0 MCV 91.6 MCH 30.5 MCHC 33.3 RDW 14.9 H Plt Count 265 Neut % (Auto) 51.7 Lymph % (Auto) 33.6 [place] % (Auto) 10.0 Eos % (Auto) 3.8 Baso % (Auto) 0.9 Neut # (Auto) 3100 Lymph # (Auto) 2000 [place] # (Auto) 600 Eos # (Auto) 200 Baso # (Auto) 100 PT 15.6 H INR 1.4 H APTT 35 Sodium 138 Potassium 4.0 Chloride 103 Carbon Dioxide 29 BUN 23 H Creatinine 0.80 Estimated GFR > 60.0 BUN/Creatinine Ratio 28.8 H Glucose 106 Calcium 9.3 Magnesium 1.8 Assessment & Plan Assessment & Plan narrative: aroxysmal atrial fibrillation with rapid ventricular response, acute, present on admission -patient has a significant history of AFib and was recently admitted in September for similar presentation. She has not been compliant with medications, including beta-alysha and diuretics. This is the likely cause of her symptoms. -Patient does not have good control on her home dose of metoprolol, and patient complains of profound fatigue. Will attempt coreg tonight with increased dosing. Avoiding diltiazem in setting of reduced EF. -discontinue Coreg, resume metoprolol 25 q.6 and titrate for rate control. - started eliquis for AC given CHADS-VaSC of 4. Patient agreeable to this medication. - once improved she will need outpatient cardiology evaluation for possible ischemic workup. - continue telemetry. 2. Decompensated systolic heart failure - EF of 25% at [facility] which improved to 50% on prior admission in September. Now reduced again to 35% possibly in setting of currently uncontrolled Afib. Today she appears more euvolemic. -resume home dose of 40 mg IV Lasix daily -TTE as noted above Discontinue his Coreg, start metoprolol 25 q.6 with a goal to titrate for rate control. Will continue lisinopril. DVT: will start eliquis tonight Code: Full FEN/GI: Heart healthy diet Dispo: Changed to inpatient today as her stay is expected to exceed 2 midnights. Quality VTE Deep Vein Thrombosis/Pulmonary Embolism Present on Admission: No
--- NOTE | 2018-11-06 15:36 | PC.NURSE ---
Day Shift Note Pt afib RVR all shift with rate in the 100-130s. Hesitant to take AM coreg; instructed extensively on importance and pt did take it with breakfast but reporting it makes her feel tired and not good at all. Left shoulder and arm pain reported at 0955, VSS (see trends) other than tachycardia, EKG obtained and Dr. Ashraf notified by which time pain had resolved. Pt stated that this pain comes and goes. Dr. Ashraf in to see patient and ordered metoprolol to replace Coreg. Pt declined to take 1200 dose despite teaching from and this principal technical writer. At 1500 pt reports 9/10 chest pain, EKG obtained, appears unchanged from previous. Dr. Ashraf notified. No new orders at this time. Chest pain beginning to resolve per pt. Call light within reach, bed alarm is on.
[2018-11-06] MEDS: METOPROLOL IR 25 MG TABLET PO (18:50)
[2018-11-06] MEDS: SENNOSIDES 8.6 MG TABLET PO (21:06)
[2018-11-07] VITALS (11 sets, daily range): BP systolic 101–135; BP diastolic 36–91; PULSE 93–119; RESP 15–24; TEMP 36.3–37.2; O2SAT 93–98
[2018-11-07] MEDS: METOPROLOL IR 25 MG TABLET PO ×3 (00:10→12:03)
[2018-11-07] MEDS: HYDROCODONE/ACET 5/325 TABLET 1 TAB PO (00:10)
[2018-11-07] MEDS: ACETAMINOPHEN 325 MG TABLET 650 MG PO ×2 (01:26→06:10)
[2018-11-07 05:43] LABS: Add Manual Diff / Slide Review NO; Basophils Absolute Auto 100 /uL (0-100); Basophils Percent Auto 1.1 % (0-2); Eosinophils Absolute Auto 300 /uL (0-450); Eosinophils Percent Auto 4.2 % (2-4); Hematocrit 46.4 % (36-46); Hemoglobin 15.4 g/dL (12.0-16.0); Lymphocytes Absolute Auto 2400 /uL (1100-4500); Lymphocytes Percent Auto 33.4 % (25-40); Mean Corpuscular HGB Conc 33.3 % (30-36); Mean Corpuscular Hemoglobin 30.3 PG (26-34); Mean Corpuscular Volume 91.1 fL (80-100); Monocytes Absolute Auto 600 /uL (0-900); Monocytes Percent Auto 8.7 % (3-14); Neutrophils Absolute Auto 3800 /uL (1500-7000); Neutrophils Percent Auto 52.6 % (50-75); Platelet Count 300 X10^3/uL (150-400); Red Blood Cell Count 5.09 X10^6/uL (4.0-5.2); Red Cell Distribution Width 14.9 % (11.6-14.8); White Blood Cell Count 7.2 X10^3/uL (4.5-11.0)
[2018-11-07 05:45] LABS: INR 1.4 (0.9-1.3); Prothrombin Time 15.8 SECONDS (10.1-12.7)
[2018-11-07 05:48] LABS: PTT Partial Thromboplastin Tim 36 SECONDS (26.4-36.2)
[2018-11-07 05:52] LABS: BUN Creatinine Ratio 31.4 (6-22); Blood Urea Nitrogen 22 mg/dL (7-17); Calcium 9.8 mg/dL (8.4-10.2); Carbon Dioxide 30 mmol/L (22-32); Chloride 100 mmol/L (98-107); Estimated Glomerular Filt Rate > 60.0 mL/min (>60); Glucose 100 mg/dL (80-110); HEMOLYSIS 21 (0-50); Magnesium 1.8 mg/dL (1.6-2.3); Potassium 3.7 mmol/L (3.4-5.1); Sodium 139 mmol/L (137-145)
--- NOTE | 2018-11-07 06:50 | PC.NURSE ---
C/O anxiety all shift. States I worried about my , I need to go home today. C/O MENCHACA, did not sleep well last night. Medicated with early with 650 mg. of Tylenol PO. Will monitor.
[2018-11-07] MEDS: FUROSEMIDE 40 MG/4 ML VIAL IV (09:05)
[2018-11-07] MEDS: APIXABAN 5 MG TABLET PO ×2 (09:05→20:16)
[2018-11-07] MEDS: SODIUM CHLORIDE 0.9% FLUSH 10 ML IV ×2 (09:08→20:17)
[2018-11-07] MEDS: HERB LAX 4 EACH PO ×2 (10:48→20:17)
[2018-11-07] MEDS: METOPROLOL TARTRATE 5 MG/5 ML INJ IV ×3 (12:45→13:47)
--- NOTE | 2018-11-07 14:28 | PC.NURSE ---
Pt to be on bedrest, BRP. Pts Ht rate goes to 140 when Pt is up and about. Pt had 3 doses of IVP labetolol per Dr Ashraf orders. Ht rate did get to 94 at one point. VS reported to Dr Ashraf. Pt cooperative. Pt did state she was bad with medications, does not take as prescribed. Inst Pt on med use at home, risk of injury/stroke. Pt remains on tele: A-fib, Ht rate 98 to 129 noted.
[2018-11-07] MEDS: METOPROLOL ER 25 MG TABLET PO (15:03)
--- NOTE | 2018-11-07 16:51 | P.PN_ITS ---
Subjective Subjective Date Patient Seen: 11/07/18 Interval history: The patient is a 77-year-old female who was admitted to the hospital with shortness of after, congestive heart failure with reduced ejection fraction, atrial fibrillation with a rapid ventricular response rate. She was discontinued from her course and started on metoprolol. The patient was initially reluctant to take the metoprolol but ultimately agreed to do so. She has remained in rapid atrial fibrillation up to this point. She is no longer short of breath she has had minimal improvement in her heart rate her blood pressure has been on the low normal side in attempts to control her rate with IV beta-blockers. Exam Vital Signs (past 8 hours): - 11/07/18 11:54 11/07/18 13:24 11/07/18 14:20 Temperature 97.5 F L Pulse Rate 107 H 101 H 110 H Respiratory Rate 16 18 18 Blood Pressure 101/60 127/76 116/68 Pulse Oximetry 97 95 96 11/07/18 15:03 11/07/18 15:25 Temperature 97.3 F L Pulse Rate 119 H 105 H Respiratory Rate 17 Blood Pressure 127/76 135/61 Pulse Oximetry 94 Oxygen Delivery Method Room Air Oxygen Flow Rate 0 Narrative Exam Narrative: Pleasant female resting comfortably Lungs: Clear to auscultation Cardiac exam: Irregularly irregular normal S1-S2 Abdomen: Soft and nontender Extremities: No edema Objective Labs Result Diagrams: 11/07/18 05:30 11/07/18 05:30 Labs: Laboratory Results - last 24 hr 11/07/18 11/07/18 11/07/18 05:30 05:30 05:30 WBC 7.2 RBC 5.09 Hgb 15.4 Hct 46.4 H MCV 91.1 MCH 30.3 MCHC 33.3 RDW 14.9 H Plt Count 300 Neut % (Auto) 52.6 Lymph % (Auto) 33.4 [place] % (Auto) 8.7 Eos % (Auto) 4.2 H Baso % (Auto) 1.1 Neut # (Auto) 3800 Lymph # (Auto) 2400 [place] # (Auto) 600 Eos # (Auto) 300 Baso # (Auto) 100 PT 15.8 H INR 1.4 H APTT 36 Sodium 139 Potassium 3.7 Chloride 100 Carbon Dioxide 30 BUN 22 H Creatinine 0.70 Estimated GFR > 60.0 BUN/Creatinine Ratio 31.4 H Glucose 100 Calcium 9.8 Magnesium 1.8 Assessment & Plan Assessment & Plan narrative: ssessment & Plan narrative: aroxysmal atrial fibrillation with rapid ventricular response, acute, present on admission - patient has a significant history of AFib and was recently admitted in September for similar presentation. She has not been compliant with medications, including beta-alysha and diuretics. This is the likely cause of her symptoms. -Patient does not have good control on her home dose of metoprolol, and patient complains of profound fatigue. Will attempt coreg tonight with increased dosing. Avoiding diltiazem in setting of reduced EF. -discontinue Coreg, resume metoprolol 25 q.6 and titrate for rate control. - started eliquis for AC given CHADS-VaSC of 4. Patient agreeable to this medication. - once improved she will need outpatient cardiology evaluation for possible ischemic workup. - continue telemetry. 2. Decompensated systolic heart failure - EF of 25% at [facility] which improved to 50% on prior admission in September. Now reduced again to 35% possibly in setting of currently uncontrolled Afib. Today she appears more euvolemic. -resume home dose of 40 mg poLasix daily -TTE as noted above Discontinue his Coreg, start metoprolol 25 q.6 with a goal to titrate for rate control. Will continue hold lisinopril for now. Need to control her rate. Her blood pressure is marginal, will resume once heart rate controlled DVT: will start eliquis tonight Code: Full FEN/GI: Heart healthy diet Dispo: Changed to inpatient today as her stay is expected to exceed 2 midnights. Quality VTE Deep Vein Thrombosis/Pulmonary Embolism Present on Admission: No
[2018-11-07] MEDS: METOPROLOL IR 50 MG TABLET PO (18:34)
[2018-11-07] MEDS: SENNOSIDES 8.6 MG TABLET PO (20:17)
--- NOTE | 2018-11-07 22:24 | PC.NURSE ---
Patient up in chair for part of the shift, then back to bed independently. Heart rate still gets up to the 120s-140s for a short time when up. Once sitting or lying hr decreases to 80-90s. Did put bed alarm on for HS d/t increased drowsiness. Patient has been calm and mostly cooperative, except for calling for assistance while bed alarm is on.
[2018-11-08] VITALS (12 sets, daily range): BP systolic 96–127; BP diastolic 57–86; PULSE 83–108; RESP 16–18; TEMP 36.1–36.6; O2SAT 95–97
--- NOTE | 2018-11-08 00:38 | PC.NURSE ---
VS earlier was 103/36, HR 104, rechecked again priior to administration of Metoprolol 25 mg. B/P was 99/64, HR. 98. Notified LIZABETH Hernandez ordered to checked B/P manually & it was 104/86 with the HR Of 102. Ordered to to go ahead give 0000 dose & checked B/P @ 0300. Will implement order & monitor.
[2018-11-08] MEDS: METOPROLOL IR 25 MG TABLET PO ×3 (00:45→12:05)
[2018-11-08] MEDS: HYDROCODONE/ACET 5/325 TABLET 1 TAB PO ×2 (00:48→12:06)
[2018-11-08] MEDS: SODIUM CHLORIDE 0.9% FLUSH 10 ML IV ×2 (01:30→08:18)
[2018-11-08] MEDS: ACETAMINOPHEN 325 MG TABLET 650 MG PO ×2 (02:28→10:48)
[2018-11-08] MEDS: APIXABAN 5 MG TABLET PO (08:15)
[2018-11-08] MEDS: DIGOXIN 500 MCG/2 ML AMPUL 250 MCG IV ×2 (08:15→14:21)
[2018-11-08] MEDS: FUROSEMIDE 40 MG TABLET PO (08:18)
--- NOTE | 2018-11-08 09:21 | CM.DPC ---
DCP Cont: Met briefly with patient, introduced self and role. Patient was sitting up in her chair near her bed. She stated that her and her had moved here a couple of months ago from [place]. She stated that her is home, and also has heart problems. She stated that they were going to get established with Dr. Yoon, but unsure when she could get in. She is anxious to go home. She is aware that Dr. Ashraf will be seeing her today. P: DCP to continue to follow closely. She should be able to return home when she is medically stable. Sonam Frost RN/Rn Anesthesiology
--- NOTE | 2018-11-08 11:19 | PC.NURSE ---
Addendum entered by Claritza Singh R.N. 11/08/18 15:42: Addendum entered by Claritza Singh R.N. 11/08/18 12:08: Patient sitting in chair, reports pain throughout hips, knees and joints r/t arthritis. Patient given her BID [place] 5/325mg. Patient denies SOB or chest pain at this time. BP 118/53, heart rate 103, scheduled Metropolol 25 mg given at this time. Call light in reach. Original Note: Patient resting in chair, alert and oriented. Expresses desire to go home today, very eager. Spoke with pt about maintaining heart rate with medication. Patient expresses understanding. Pt ambulated in [place], heart rate stayed in the low 100's. Pt. denies SOB, chest pain, and nausea.
--- NOTE | 2018-11-08 17:17 | PC.NURSE ---
Pt with discharge orders. Education and information on medications given to pt. Pt escorted via wheelchair by hospital staff, taking patient home.
--- NOTE | 2018-11-22 19:30 | P.DS_ITS ---
History of Present Illness History of Present Illness Date Patient Seen: 11/08/18 Chief complaint: sob x12 hours/left knee pain Narrative: Tasha Negrete is a 77-year-old female with past medical history of CHFrEF, paroxysmal AFib who presented with 2 days of shortness of breath on exertion, and fatigue. Patient states that over the past 2 days she has noted worsening dyspnea on exertion to the point of getting short of breath on a few steps, she also notes a chronic cough, but denies any lower extremity edema or orthopnea. She has had occasional palpitations and minimal chest pains that have resolved without any interventions. She was recently admitted in September of this year for an exacerbation of heart failure and AFib with RVR which improved after diuresis. She was discharged on lisinopril metoprolol, and Lasix which she states that she is only taking intermittently. She has not followed up with a loan service officer since her last discharge, but has an appointment for next month. She apparently denies any chest pain, shortness of breath, abdominal pain, nausea, vomiting, headaches, lower extremity edema. She denies any other complaints at this time. In the ED, her EKG showed AFib with RVR, reportedly as fast as the 140s per ED provider. She was given 10 mg of diltiazem, and started on a diltiazem infusion. She was then started on oral diltiazem after rapid improvement. Upon arrival to the floor, her heart rate was improved, but given history of low ejection fraction, she will be transitioned to metoprolol tonight. I have further discussed anticoagulation with the patient and she is agreeable to starting this tonight. I have counseled her on the importance of continued medication compliance, and she understands now. I will order an echocardiogram, and she will likely be discharged tomorrow. She is admitted to Medicine under observation status for AFib with RVR. Discharge Providers Provider Date of admission: 11/05/18 14:53 Discharge Date: 11/08/18 Primary care physician: Dm Eaton MD Discharge provider: Alexia Ahsraf MD Summary Hospital Course Discharge Diagnosis: 1. Persistent atrial fibrillation 2. Acute decompensated systolic heart failure Hospital Course: Patient is a 78-year-old female with a history of intermittent atrial fibrillation. It she presented to the hospital with shortness of breath and atrial fibrillation with a rapid ventricular response rate. The patient was titrated up on Coreg with a poor response. Patient continued to have a rapid heart rate. She was switched to metoprolol. The patient was reluctant to take the medication or allow us to titrate it for her heart rate. She remained with rapid ventricular response rate. I consulted with our Cardiology recommended increasing the metoprolol further. The patient flat out refused to take more medication she did agree to taking Eliquis. I spoke to Cardiology again who recommended amiodarone. The patient was adamant that she would not take the 80s amiodarone. She demanded to leave the hospital will as her has dementia and she felt strongly she needed to go home. The patient was discharged although the recommendation was for her to stay. She would follow up with her 's loan service officer Dr. Bustamante at [facility] for further evaluation. After the patient was discharged I spoke to Dr. Bustamante's office who stated he would follow up with the patient and have her brought in for further evaluation. Patient was discharged despite desire for her to stay for further treatment. Patient had an echocardiogram in the hospital which revealed following findings: [address] [address] Echocardiography Report Signed Patient: Dagmar Negrete [facility]#: [id number] : [id number]:[id number] Age/Sex: 77 / FDate of Service: 11/04/18 Loc: DA265-1 Accession Number: [id number] Procedure: EC echo doppler complete Ordering Provider: Percy Robles D.O. [place] +---------+ [facility] +---------+ : : [address] [place] [address]. : : : : [place], [place] : : : : [id number] : : : : Phone: [phone] Echocardiogram Report + + :Name: DAGMAR NEGRETE Study Date: 11/05/2018 Height: 65 in : :Hospital Exam Location: [facility] Weight: 160 lb : : Gender: Female BSA: 1.8 m2 : :: 1940 Age: 77 yrs BP: 103/75 mmHg: :Reason For Study: AFIB RVR : : Performed By: Alberto Chavarria : :Referring: PERCY ROBLES : + + Interpretation Summary The left ventricle is normal in size. Left ventricular ejection fraction is estimated to be 35 +/- 5%. There is moderate global hypokinesis of the left ventricle. There is inferior wall severe hypokinesis. Compared to the prior exam, the left ventricular function is reduced. Right ventricular systolic function is moderately reduced. Right ventricular systolic function has decreased since previous exam. There is moderate to severe mitral regurgitation. Compared to the prior echo study, there has been an increase in the severity of mitral regurgitation. No obvious mitral valve prolapse or vegetation or flail leaflets. Mitral regurgitation appears to be secondary. Left atrium is significantly enlarged. There is moderate tricuspid regurgitation. Compared to the prior echo exam, there has been no change in TR severity. The right ventricular systolic pressure is estimated to be at least 23 mmHg based on an estimated right atrial pressure of 3 mm Hg. The IVC is of normal diameter and collapses greater than 50% with a sniff. This suggests a low right atrial pressure of 3 mm Hg. Right atrial pressure decreased from the previous study. Patient is in A. fib. The patient had a heart rate of 86-116 beats per minute. Status at Discharge Cognitive/behavioral status at discharge: oriented Functional status at discharge: independent ambulation Overall status at discharge: patient is not back to baseline Time Spent with Patient Time spent: Less than 30 minutes Exam Vital Signs (past 8 hours): Oxygen Delivery Method Room Air Oxygen Flow Rate 0 Narrative Exam Narrative: Anxious female Tachycardic Lungs: Clear to auscultation Cardiac exam: Irregularly irregular normal S1-S2 with a 2/6 systolic ejection murmur Abdomen: Soft nontender nondistended Extremities: No edema Objective Labs Result Diagrams: 11/07/18 05:30 11/07/18 05:30 Discharge Plan Discharge Plan Patient Disposition: Home Discharge Med Rec/Prescriptions Prescriptions: New Eliquis 5 mg Tablet 5 mg PO BID Qty: 30 RF: 0 Continued furosemide 40 mg Tablet 40 mg PO DAILY RF: 0 hydrocodone-acetaminophen 5-325 mg tablet 1 tab PO 1-2XD PRN (Reason: pain) RF: 0 zolpidem 5 mg tablet 5 mg PO BEDTIME PRN (Reason: Sleep) RF: 0 multivitamin Tablet 1 tab PO DAILY RF: 0 Vitamin C 1 tab PO DAILY RF: 0 magnesium 1 tab PO DAILY RF: 0 potassium 1 tab PO DAILY RF: 0 lisinopril 5 mg Tablet 5 mg PO DAILY Qty: 30 RF: 4 metoprolol tartrate 25 mg Tablet 25 mg PO BID Qty: 60 RF: 4 Follow up/Referrals: Dm Eaton MD [Primary Care Provider] - Provider Discharge Instructions Diet: Low-sodium and Low-cholesterol Activity: as tolerated Oxygen: not indicated Visit Report/Discharge Packet Instructions: Atrial Fibrillation, Metoprolol, Apixaban Discharge Data Primary Care Provider: Dm Eaton V Discharges patient from system. Discharge Date/Time: 11/08/18 17:19 Quality VTE Deep Vein Thrombosis/Pulmonary Embolism Present on Admission: No
== END 2018-11-08 17:19 | disposition home or self-care (01) | DRG 308 ==
LOC: ED 13:34 → AC 13:38
PROVIDERS: Admitting Provider Internal Medicine; Emergency Provider Emergency Medicine; PCP Internal Medicine; Visit Provider Internal Medicine
DX: I48.0 Paroxysmal atrial fibrillation (principal); I50.23 Acute on chronic systolic (congestive) heart failure; M25.562 Pain in left knee; T50.2X6A Underdosing of carbonic-anhydrase inhibitors, benzothiadiazides and other diuretics, initial encounter; Z91.128 Patient's intentional underdosing of medication regimen for other reason
CPT/HCPCS: 36415; 36591; 71045; 80048; 80053; 80061; 80076; 81003; 81015; 83036; 83690; 83735; 83880; 84443; 84484; 85025; 85610; 85730; 93005; 93041; 93306; 96361; 96365; 96366; 96376; 99285; G0378; J1160; J1940

== ENCOUNTER → 2018-12-27 10:40 | Outpatient (CLI) | payer MEDICARE, SELFPAY ==
[2018-11-04 14:14] VITALS: BMI 26.6
[2018-12-27 11:58] LABS: BUN Creatinine Ratio 25.7 (6-22); Blood Urea Nitrogen 18 mg/dL (7-17); Calcium 9.8 mg/dL (8.4-10.2); Carbon Dioxide 28 mmol/L (22-32); Chloride 103 mmol/L (98-107); Cholesterol 229 mg/dL (140-199); Estimated Glomerular Filt Rate > 60.0 mL/min (>60); Glucose 99 mg/dL (80-110); HDL Cholesterol 53 mg/dL (40-60); HEMOLYSIS < 15 (0-50); LDL Cholesterol Calculated 137 mg/dL (<100); Potassium 4.6 mmol/L (3.4-5.1); Sodium 138 mmol/L (137-145); Triglycerides 195 mg/dL (35-150)
[2018-12-27 12:05] LABS: Digoxin < 0.4 ng/mL (0.8-2.0)
== END ==
PROVIDERS: PCP Internal Medicine; Visit Provider Internal Medicine Cardiovascular Disease
DX: I50.22 Chronic systolic (congestive) heart failure (principal); I48.19 Other persistent atrial fibrillation; I34.0 Nonrheumatic mitral (valve) insufficiency; I36.1 Nonrheumatic tricuspid (valve) insufficiency
CPT/HCPCS: 36415; 80048; 80061; 80162

== ENCOUNTER 2019-03-14 11:30 | Outpatient (RCR) | payer MEDICARE, SELFPAY ==
[2018-09-20 17:21] VITALS: BMI 30.8
[2018-11-04 14:14] VITALS: BMI 26.6
== END 2019-03-25 11:22 ==
LOC: CAR 11:30
PROVIDERS: PCP Internal Medicine; Visit Provider Internal Medicine
DX: I50.32 Chronic diastolic (congestive) heart failure (principal)
CPT/HCPCS: 93798

== ENCOUNTER → 2019-04-15 15:48 | Outpatient (ROUT) | payer MEDICARE, SELFPAY ==
[2018-11-04 14:14] VITALS: BMI 26.6
[2019-04-15 16:30] LABS: Add Manual Diff / Slide Review NO; Basophils Absolute Auto 100 /uL (0-100); Basophils Percent Auto 1.1 % (0-2); Eosinophils Absolute Auto 100 /uL (0-450); Eosinophils Percent Auto 1.6 % (2-4); Hematocrit 42.3 % (36-46); Lymphocytes Absolute Auto 1800 /uL (1100-4500); Lymphocytes Percent Auto 23.8 % (25-40); Mean Corpuscular HGB Conc 33.1 % (30-36); Mean Corpuscular Hemoglobin 29.8 PG (26-34); Mean Corpuscular Volume 90.1 fL (80-100); Monocytes Absolute Auto 800 /uL (0-900); Monocytes Percent Auto 10.6 % (3-14); Neutrophils Absolute Auto 4600 /uL (1500-7000); Neutrophils Percent Auto 62.9 % (50-75); Platelet Count 323 X10^3/uL (150-400); Red Blood Cell Count 4.69 X10^6/uL (4.0-5.2); Red Cell Distribution Width 14.3 % (11.6-14.8); White Blood Cell Count 7.4 X10^3/uL (4.5-11.0)
[2019-04-15 16:47] LABS: Alanine Aminotransferase 34 IU/L (<35); Albumin 3.8 g/dL (3.5-5.0); Albumin Globulin Ratio 1.4 (1.0-2.8); Alkaline Phosphatase 96 U/L (38-126); Aspartate Aminotransferase 44 IU/L (14-36); BUN Creatinine Ratio 28.8 (6-22); Bilirubin Total 1.3 mg/dL (0.2-1.3); Blood Urea Nitrogen 23 mg/dL (7-17); Calcium 9.9 mg/dL (8.4-10.2); Carbon Dioxide 23 mmol/L (22-32); Chloride 107 mmol/L (98-107); Estimated Glomerular Filt Rate > 60.0 mL/min (>60); Globulin 2.8 g/dL (1.7-4.1); Glucose 88 mg/dL (80-110); Potassium 4.5 mmol/L (3.4-5.1); Sodium 139 mmol/L (137-145); Total Protein 6.6 g/dL (6.3-8.2)
[2019-04-15 16:57] LABS: HEMOLYSIS 28 (0-50); NT-proBNP (BNP-Adult 18+) 9980 pg/mL (<450)
== END ==
PROVIDERS: PCP Internal Medicine; Visit Provider Internal Medicine
DX: I48.91 Unspecified atrial fibrillation (principal); I50.9 Heart failure, unspecified
CPT/HCPCS: 80053; 83880; 84443; 85025

== ENCOUNTER 2019-05-18 01:05 | Emergency (ER) | payer MEDICARE, SELFPAY ==
[2018-11-04 14:14] VITALS: BMI 26.6
--- NOTE | 2019-05-18 01:17 | ED_ITS ---
HPI - General Adult General Chief complaint: Arrhythmia/Palpitations Stated complaint: Syncope Time Seen by Provider: 05/18/19 01:15 Source: patient and EMS Mode of arrival: EMS Limitations: no limitations History of Present Illness HPI narrative: Patient is a 78-year-old female. Is on Eliquis for atrial fibrillation. Was brought in by EMS after they were called to the house by patient's test tube maker. She does have Visiting angels who come to her house to stay with her in the evening. Is reported that she had a couple falls today. Unsure the circumstances of these falls. EMS report that the patient initially was refusing to come to the emergency department however when the took her vital signs and noticed that her heart rate was in the 150s and irregular they recommended that she come in. She arrived by EMS. Upon arrival she had no chest pain. No palpitations. She states that she does have a history of AFib. She thinks she is occasionally in AFib. Initially she stated that she has been taking all of her medications. She stated that she did not fall this evening. She states that she fell asleep in her wheelchair which is not unusual for her and the person who was staying with her this evening was new and did not know this. She stated that she has fallen in the past. She has got a bruise on her left anabaptism that appears to be old. Upon further questioning patient states that she cannot guarantee that she has been taking her Eliquis 2 times a day on a regular basis. Patient was reportedly seen by her regular doctor today and started on antibiotics for dysuria symptoms she has been having for the past couple days. Related Data Home Medications Medication Instructions Recorded Confirmed Vitamin C 1 tab PO DAILY 09/20/18 11/04/18 hydrocodone-acetaminophen 1 tab PO 1-2XD PRN 09/20/18 11/04/18 magnesium 1 tab PO DAILY 09/20/18 11/04/18 multivitamin 1 tab PO DAILY 09/20/18 11/04/18 potassium 1 tab PO DAILY 09/20/18 11/04/18 zolpidem 5 mg PO BEDTIME PRN 09/20/18 11/04/18 furosemide 40 mg PO DAILY 11/04/18 11/04/18 Previous Rx's Medication Instructions Recorded lisinopril 5 mg PO DAILY #30 tab 09/21/18 metoprolol tartrate 25 mg PO BID #60 tab 09/21/18 apixaban [Eliquis] 5 mg PO BID #30 tab 11/08/18 Allergies Allergy/AdvReac Type Severity Reaction Status Date / Time No Known Drug Allergies Allergy Verified 09/23/18 11:17 Review of Systems Constitutional Constitutional: Denies fever(s) and Denies headache(s) ENT Ears, Nose, Mouth, and Throat: Denies headache(s) Cardiovascular Cardiovascular: Denies chest pain and Denies dyspnea Respiratory Respiratory: Denies dyspnea Gastrointestinal Gastrointestinal: Denies abdominal pain Genitourinary Genitourinary: Reports dysuria Musculoskeletal Musculoskeletal: Denies myalgias and Denies arthralgias Integumentary/Breasts Skin/Breast: Denies lesions and Denies rash Neurologic Neurologic: Denies headache(s) Hematologic/Lymphatic Comments: On Eliquis Patient History Medical History Atrial fibrillation (Chronic) Chronic headaches (Chronic) Congestive heart failure (CHF) (Chronic) Surgical History H/O: hysterectomy (Chronic) History of bilateral hip replacements (Resolved) History of hysterectomy (Resolved) Family History Mother No problems noted. Father Cancer Social History marital status: household members: spouse Smoking Status: Never smoker alcohol intake: current substance use type: does not use Smoking Status: Never smoker alcohol intake frequency: a few times a week Substance Use Type: does not use Exam Initial Vital Signs Initial Vital Signs: Vital Signs Temperature 97.4 F L 05/18/19 01:25 Pulse Rate 150 H 05/18/19 01:25 Respiratory Rate 20 05/18/19 01:25 Blood Pressure 119/62 05/18/19 01:25 Pulse Oximetry 95 05/18/19 01:25 Const General: cooperative, comfortable, well developed and well groomed Limitations: mental status not altered HENMT Head: contusion (Left anabaptism) Nose: external nose normal Mouth: oral mucosae normal Eyes Pupils: PERRL Resp Effort & Inspection: normal respiratory effort Auscultation: clear to auscultation bilaterally Cardio Rate: tachycardic Rhythm: abnormal rhythm Pulses: radial pulses present GI Inspection: non-distended Palpation: soft Back/Spine/Pelvis Cervical Spine: No cervical spinal tenderness Thoracic/Lumbar Spine: No thoracic spinal tenderness Skin Other: Contusion to left anabaptism Neuro General: alert, awake and oriented x3 Cognition: normal cognition Speech: speech normal Gait: normal gait Sensory Exam: no sensory deficits noted Extrem General: normal to inspection and capillary refill normal Psych Appearance: grossly normal and well kempt Scores GCS [place] coma scale eye opening: Spontaneous [place] coma scale verbal response: Orientated [place] coma scale motor response: Obey commands [place] coma scale total score: 15 Nexus Score for C-Spine Focal Neurologic deficit present: No Midline spinal tenderness present: No Altered level of conciousness present: No Intoxication present: No Distracting Injury Present: No Nexus Criteria for C-spine: 0 Course Orders Ordered: ED Orders 05/18/19 00:55 Complete Blood Count AUTO DIFF Stat Comprehensive Metabolic Panel Stat Ethanol (ETOH) Stat Lipase Stat Partial Thromboplastin Time Stat Prothrombin Time INR Stat Troponin I Stat 05/18/19 01:16 EKG-12 Lead Stat 05/18/19 01:20 Urine Drug Screen, Rapid Stat 05/18/19 01:37 CT head/brain wo con Stat DILTIAZEM (Diltiazem 125 Mg/125 Ml-D5w) 125 mg in 125 mls @ 5 mls/hr IV TITRATE [facility]; Protocol Last Admin: 05/18/19 01:58 Dose: 5 mg/hr, 5 mls/hr Documented by: CHON Discontinued Medications Diltiazem HCl (Cardizem) 10 mg IV NOW ONE Stop: 05/18/19 01:35 Last Admin: 05/18/19 01:47 Dose: 10 mg Documented by: CHON Metoprolol Tartrate (Lopressor) 25 mg PO NOW ONE Stop: 05/18/19 02:50 Last Admin: 05/18/19 03:52 Dose: 25 mg Documented by: CHON Vital Signs Vital signs: Vital Signs - 8 hr 05/18/19 01:25 05/18/19 01:47 05/18/19 01:50 Temperature 97.4 F L Pulse Rate 150 H 171 H 128 H Respiratory Rate 20 Blood Pressure 119/62 119/62 Blood Pressure [Right Arm] 112/71 Pulse Oximetry 95 03/14/20 02:06 Temperature Pulse Rate 112 H Respiratory Rate 20 Blood Pressure Blood Pressure [Right Arm] 103/74 Pulse Oximetry 95 Medical Decision Making Lab Data Lab results reviewed: Yes I reviewed the patient's lab results. Result diagrams: 05/18/19 00:55 05/18/19 00:55 Labs: Lab Results 05/18/19 05/18/19 05/18/19 Range/Units 00:55 00:55 00:55 WBC 6.7 (4.5-11.0) X10^3/uL RBC 5.15 (4.0-5.2) X10^6/uL Hgb 14.2 (12.0-16.0) g/dL Hct 43.8 (36-46) % MCV 85.1 (80-100) fL MCH 27.6 (26-34) PG MCHC 32.4 (30-36) % RDW 16.1 H (11.6-14.8) % Plt Count 361 (150-400) X10^3/uL Neut % (Auto) 48.7 L (50-75) % Lymph % (Auto) 34.8 (25-40) % [place] % (Auto) 13.3 (3-14) % Eos % (Auto) 2.0 (2-4) % Baso % (Auto) 1.2 (0-2) % Neut # (Auto) 3300 (9596-1720) /uL Lymph # (Auto) 2300 (5942-8050) /uL [place] # (Auto) 900 (0-900) /uL Eos # (Auto) 100 (0-450) /uL Baso # (Auto) 100 (0-100) /uL PT 19.1 H (10.1-12.7) SECONDS INR 1.7 H (0.9-1.3) APTT 34 D (26.4-36.2) SECONDS Sodium 137 (137-145) mmol/L Potassium 4.3 (3.4-5.1) mmol/L Chloride 104 (98-107) mmol/L Carbon Dioxide 26 (22-32) mmol/L BUN 28 H (7-17) mg/dL Creatinine 1.09 H (0.52-1.04) mg/dL Estimated GFR 48.7 L (>60) mL/min BUN/Creatinine Ratio 25.7 H (6-22) Glucose 104 (80-110) mg/dL Calcium 9.4 (8.4-10.2) mg/dL Total Bilirubin 0.9 (0.2-1.3) mg/dL AST 33 (14-36) IU/L ALT 26 (<35) IU/L Alkaline Phosphatase 94 (38-126) U/L Troponin I 0.015 (0.01-0.034) ng/mL Total Protein 7.2 (6.3-8.2) g/dL Albumin 4.2 (3.5-5.0) g/dL Globulin 3.0 (1.7-4.1) g/dL Albumin/Globulin Ratio 1.4 (1.0-2.8) Lipase 58 (23-300) U/L U Opiates 300ng/mL cut (Negative) Ur Oxycodone Screen (Negative) Urine Methadone Screen (Negative) Ur Barbiturates Screen (Negative) U Tricyclic Antidepress (Negative) Ur Phencyclidine Scrn (Negative) Ur Amphetamines Screen (Negative) U Methamphetamines Scrn (Negative) Ur MDMA Scrn (Ecstasy) (Negative) U Benzodiazepines Scrn (Negative) Urine Cocaine Screen (Negative) U Marijuana (THC) Screen (Negative) Ethyl Alcohol ( - 10) mg/dL 05/18/19 05/18/19 Range/Units 00:55 01:20 WBC (4.5-11.0) X10^3/uL RBC (4.0-5.2) X10^6/uL Hgb (12.0-16.0) g/dL Hct (36-46) % MCV (80-100) fL MCH (26-34) PG MCHC (30-36) % RDW (11.6-14.8) % Plt Count (150-400) X10^3/uL Neut % (Auto) (50-75) % Lymph % (Auto) (25-40) % [place] % (Auto) (3-14) % Eos % (Auto) (2-4) % Baso % (Auto) (0-2) % Neut # (Auto) (2137-8299) /uL Lymph # (Auto) (7213-1844) /uL [place] # (Auto) (0-900) /uL Eos # (Auto) (0-450) /uL Baso # (Auto) (0-100) /uL PT (10.1-12.7) SECONDS INR (0.9-1.3) APTT (26.4-36.2) SECONDS Sodium (137-145) mmol/L Potassium (3.4-5.1) mmol/L Chloride (98-107) mmol/L Carbon Dioxide (22-32) mmol/L BUN (7-17) mg/dL Creatinine (0.52-1.04) mg/dL Estimated GFR (>60) mL/min BUN/Creatinine Ratio (6-22) Glucose (80-110) mg/dL Calcium (8.4-10.2) mg/dL Total Bilirubin (0.2-1.3) mg/dL AST (14-36) IU/L ALT (<35) IU/L Alkaline Phosphatase (38-126) U/L Troponin I (0.01-0.034) ng/mL Total Protein (6.3-8.2) g/dL Albumin (3.5-5.0) g/dL Globulin (1.7-4.1) g/dL Albumin/Globulin Ratio (1.0-2.8) Lipase (23-300) U/L U Opiates 300ng/mL cut Positive H (Negative) Ur Oxycodone Screen Negative (Negative) Urine Methadone Screen Negative (Negative) Ur Barbiturates Screen Negative (Negative) U Tricyclic Antidepress Negative (Negative) Ur Phencyclidine Scrn Negative (Negative) Ur Amphetamines Screen Negative (Negative) U Methamphetamines Scrn Negative (Negative) Ur MDMA Scrn (Ecstasy) Negative (Negative) U Benzodiazepines Scrn Negative (Negative) Urine Cocaine Screen Negative (Negative) U Marijuana (THC) Screen Negative (Negative) Ethyl Alcohol < 10 ( - 10) mg/dL Imaging Data CT scan - head: Radiologist's Impression: No acute hemorrhage or definite acute infarct ECG Data Attestation: I personally reviewed and interpreted this ECG as follows: Prior ECG tracings: not available for review Interpretation: Atrial fibrillation Ventricular rate 148 Normal axis Normal QRS Normal QTC No ST T wave changes MDM Narrative Medical decision making narrative: Patient arrived tachycardic. Was not hypotensive. Reported that she had no symptoms. She stated she did not fall today. The bruising on her left anabaptism does not appear to be new. Patient states she fell several days ago. Head CT shows no acute pathology. Patient st ated that she cannot guarantee that she has been taking her Eliquis 2 times a day. Given this fact she is not a candidate for cardioversion. There was also some question about whether not she has been taking her metoprolol on a regular basis. Patient was given diltiazem which did help her heart rate somewhat however was not consistently less than 120. Patient's UDS positive for opiates however she is prescribed these medications. She is alert oriented x3. Has a GCS of 15. In my opinion has capacity to make decisions. Not clinically intoxicated. Patient stated that she did not want to be admitted to the hospital. She stated that her is coming home from rehab tomorrow and she did not want to be in the hospital during that time. She stated that she has been admitted in the hospital in the past for high heart rate has spent many days admitted without any improvement she did not want to go through that again. Patient once again stated that she did not want to be admitted to the hospital. We did discuss the risks of going home to include continued elevated heart rate in the stress that can cause an heart to include heart attack, we did discuss potential stroke given the fact that she is in AFib and not taking her Eliquis. We also discussed that her her heart rate could be the cause of her falling and if she is taking the Eliquis and falling this could potentially cause head bleed which could be fatal. We discussed other complications up to and including . Patient expressed understanding of this and still would like to go home. Patient was informed she could return to the emergency department any time if she wished. She was informed that she should be taking her medications as directed. She was instructed that she needs to contact her primary provider and also her banking specialist for follow-up. She expressed understanding and agreement. Patient signed Against Medical Advice paperwork Discharge Plan Departure Patient Disposition: Left Against Medical Advice Clinical Impression: Atrial fibrillation with rapid ventricular response Instructions: DI for Atrial Fibrillation Activity Restrictions/Additional Instructions: You are leaving against medical advice. Your heart rate is elevated in this potentially could be the reason for your falling. A high heart rate could potentially lead to strain on her heart and potentially lead to heart attack or stroke or even . I do recommend that you continue to take all of your medications as directed. I recommend that you contact your primary provider and your banking specialist for a follow-up. You may return to the emergency department at any point for further evaluation if you wish. Prescriptions: No Action furosemide 40 mg Tablet 40 mg PO DAILY RF: 0 Eliquis 5 mg Tablet 5 mg PO BID Qty: 30 RF: 0 hydrocodone-acetaminophen 5-325 mg tablet 1 tab PO 1-2XD PRN (Reason: pain) RF: 0 zolpidem 5 mg tablet 5 mg PO BEDTIME PRN (Reason: Sleep) RF: 0 multivitamin Tablet 1 tab PO DAILY RF: 0 Vitamin C 1 tab PO DAILY RF: 0 magnesium 1 tab PO DAILY RF: 0 potassium 1 tab PO DAILY RF: 0 lisinopril 5 mg Tablet 5 mg PO DAILY Qty: 30 RF: 4 metoprolol tartrate 25 mg Tablet 25 mg PO BID Qty: 60 RF: 4 Referrals: Dm Eaton MD [Primary Care Provider] - Stand Alone Forms: Against Medical Advice
[2019-05-18 01:25] VITALS: BP 119/62; PULSE 150; RESP 20; TEMP 36.3; O2SAT 95
[2019-05-18 01:25] LABS: Add Manual Diff / Slide Review NO; Basophils Absolute Auto 100 /uL (0-100); Basophils Percent Auto 1.2 % (0-2); Eosinophils Absolute Auto 100 /uL (0-450); Hematocrit 43.8 % (36-46); Hemoglobin 14.2 g/dL (12.0-16.0); Lymphocytes Absolute Auto 2300 /uL (1100-4500); Lymphocytes Percent Auto 34.8 % (25-40); Mean Corpuscular HGB Conc 32.4 % (30-36); Mean Corpuscular Hemoglobin 27.6 PG (26-34); Mean Corpuscular Volume 85.1 fL (80-100); Monocytes Absolute Auto 900 /uL (0-900); Monocytes Percent Auto 13.3 % (3-14); Neutrophils Absolute Auto 3300 /uL (1500-7000); Neutrophils Percent Auto 48.7 % (50-75); Platelet Count 361 X10^3/uL (150-400); Red Blood Cell Count 5.15 X10^6/uL (4.0-5.2); Red Cell Distribution Width 16.1 % (11.6-14.8); White Blood Cell Count 6.7 X10^3/uL (4.5-11.0)
[2019-05-18 01:26] LABS: INR 1.7 (0.9-1.3); Prothrombin Time 19.1 SECONDS (10.1-12.7)
[2019-05-18 01:29] LABS: PTT Partial Thromboplastin Tim 34 SECONDS (26.4-36.2)
[2019-05-18 01:30] LABS: Alanine Aminotransferase 26 IU/L (<35); Albumin 4.2 g/dL (3.5-5.0); Albumin Globulin Ratio 1.4 (1.0-2.8); Alkaline Phosphatase 94 U/L (38-126); Aspartate Aminotransferase 33 IU/L (14-36); BUN Creatinine Ratio 25.7 (6-22); Bilirubin Total 0.9 mg/dL (0.2-1.3); Blood Urea Nitrogen 28 mg/dL (7-17); Calcium 9.4 mg/dL (8.4-10.2); Carbon Dioxide 26 mmol/L (22-32); Chloride 104 mmol/L (98-107); Estimated Glomerular Filt Rate 48.7 mL/min (>60); Glucose 104 mg/dL (80-110); HEMOLYSIS < 15 (0-50); Lipase 58 U/L (23-300); Potassium 4.3 mmol/L (3.4-5.1); Sodium 137 mmol/L (137-145); Total Protein 7.2 g/dL (6.3-8.2)
--- NOTE | 2019-05-18 01:37 | DI.CT.S_ITS ---
PROCEDURE: CT HEAD/BRAIN WO CON INDICATIONS: Multiple falls, on Eliquis TECHNIQUE: Noncontrast 4.5 mm thick angled axial sections acquired from the foramen magnum to the vertex, with coronal and sagittal reformats. For radiation dose reduction, the following was used: automated exposure control, adjustment of mA and/or kV according to patient size. COMPARISON: [facility], CT, CT HEAD/BRAIN WO CON, 09/23/2018, 11:46. FINDINGS: Image quality: Excellent. CSF spaces: Basal cisterns are patent. No extra-axial fluid collections. The ventricles are symmetric in size and shape. Brain: No intracranial bleeds or masses. There is cerebral volume loss for age, with resultant ventricular and sulcal prominence. There are mild periventricular and deep white matter chronic small vessel ischemic changes. There is intracranial internal carotid artery atherosclerosis. Skull and face: Calvarium and visualized facial bones appear intact, without suspicious lesions. Tiny foci of subcutaneous gas over the left temporal region. Sinuses: Visualized sinuses and mastoids are clear. IMPRESSION: 1. No CT evidence of acute intracranial trauma. 2. Age-appropriate exam with mild changes of chronic microvascular ischemia. 3. Trace amounts of left temporal subcutaneous gas suggesting laceration or abrasion. No underlying fracture visible. 4. Concordant with preliminary report. Dictated by: Yamilka Walsh M.D. on 05/18/2019 at 8:27 Approved by: Yamilka Walsh M.D. on 05/18/2019 at 8:30
[2019-05-18 01:42] LABS: Troponin I 0.015 ng/mL (0.01-0.034)
[2019-05-18 01:47] VITALS: BP 119/62; PULSE 171
[2019-05-18] MEDS: dilTIAZem 5 MG/ML SDV 10 MG IV (01:47)
[2019-05-18 01:48] LABS: Ur Creatinine 2 (Normal); Ur Specific Gravity 1.025 (Normal); Urine Amphetamines Negative (Negative); Urine Barbiturates Negative (Negative); Urine Benzodiazepines Negative (Negative); Urine Cocaine Negative (Negative); Urine MDMA Negative (Negative); Urine Methadone Negative (Negative); Urine Methamphetamines Negative (Negative); Urine Oxycodone Negative (Negative); Urine Phencyclidine Negative (Negative); Urine Tetrahydrocannabinol Negative (Negative); Urine Tricyclic Antidepressant Negative (Negative); Urine pH 5 (Normal)
[2019-05-18 01:50] VITALS: BP 112/71; PULSE 128
[2019-05-18 01:52] LABS: Ethanol (ETOH) < 10 mg/dL
[2019-05-18] MEDS: DILTIAZEM 125 MG/125 ML PIGGYBACK IV (01:58)
[2019-05-18 02:06] VITALS: BP 103/74; PULSE 112; RESP 20; O2SAT 95
--- NOTE | 2019-05-18 02:15 | PC.NURSE ---
I am unable to verify her medications,she told me and DR Stein that she has not been taking her medications as instructed.
[2019-05-18 02:23] LABS: UR Morphine/Opiate cutoff 300 Positive (Negative)
[2019-05-18] MEDS: METOPROLOL IR 25 MG TABLET PO (03:52)
[2019-05-18 04:12] VITALS: BP 110/77; PULSE 123; RESP 23; O2SAT 94
== END 2019-05-18 04:15 | disposition left against medical advice (07) ==
PROVIDERS: Emergency Provider Emergency Medicine; PCP Internal Medicine
DX: I48.20 Chronic atrial fibrillation, unspecified (principal); Z79.01 Long term (current) use of anticoagulants; I50.9 Heart failure, unspecified
CPT/HCPCS: 36415; 70450; 80053; 80305; 80320; 83690; 84484; 85025; 85610; 85730; 93005; 93010; 96374; 99284

== ENCOUNTER → 2019-08-02 10:59 | Outpatient (CLI) | payer MEDICARE, SELFPAY ==
[2018-11-04 14:14] VITALS: BMI 26.6
--- NOTE | 2019-08-02 | DI.RAD.S_ITS ---
PROCEDURE: XR HIP W PEL IF DONE BILAT 2V INDICATIONS: BILAT HIP PAIN TECHNIQUE: AP pelvis with lateral view(s) of the bilateral hip(s). COMPARISON: None. FINDINGS: Bones: No fractures or dislocations. Prior bilateral total hip arthroplasty procedures, no evidence of device loosening or disruption. Pelvic ring appears intact. No suspicious bony lesions. Soft tissues: The visualized bowel gas pattern is normal. No suspicious soft tissue calcifications. IMPRESSION: Excellent alignment in this patient with bilateral total hip arthroplasty procedures. Source of pain is not found. Dictated by: Christopher Taylor M.D. on 08/02/2019 at 11:33 Approved by: Christopher Taylor M.D. on 08/02/2019 at 11:34
== END ==
PROVIDERS: PCP Internal Medicine; Referring Provider Internal Medicine; Visit Provider Internal Medicine
DX: M25.551 Pain in right hip (principal); M25.552 Pain in left hip; Z96.643 Presence of artificial hip joint, bilateral
CPT/HCPCS: 73521

== ENCOUNTER 2019-09-23 22:38 | Observation (INO) | payer MEDICARE, SELFPAY ==
[2018-11-04 14:14] VITALS: BMI 26.6
[2019-09-23 22:50] VITALS: BP 125/70; PULSE 161; RESP 28; TEMP 36.7; O2SAT 97
[2019-09-23 23:06] VITALS: PULSE 169; RESP 25; O2SAT 97
--- NOTE | 2019-09-23 23:08 | DI.RAD.S_ITS ---
PROCEDURE: XR CHEST 1V INDICATIONS: shortness of breath, afib, right ventricular regurgitation TECHNIQUE: One view of the chest was acquired. COMPARISON: [facility], CR, XR CHEST 1V, 11/04/2018, 10:11. FINDINGS: Surgical changes and devices: None. Lungs and pleura: Lungs are clear. No pleural effusions or pneumothorax. Mediastinum: Mediastinal contours appear normal. Heart is enlarged Bones and chest wall: No suspicious bony lesions. Overlying soft tissues appear unremarkable. IMPRESSION: No acute cardiopulmonary disease process. Dictated by: Pura Rene MD, PhD on 09/24/2019 at 8:54 Approved by: Pura Rene MD, PhD on 09/24/2019 at 8:55
[2019-09-23 23:15] VITALS: BP 106/74; PULSE 167; RESP 30; O2SAT 95
[2019-09-23 23:30] VITALS: BP 91/71; PULSE 168; RESP 33; O2SAT 96
[2019-09-23 23:36] LABS: Add Manual Diff / Slide Review NO; Alanine Aminotransferase 37 IU/L (<35); Albumin 3.9 g/dL (3.5-5.0); Albumin Globulin Ratio 1.4 (1.0-2.8); Alkaline Phosphatase 160 U/L (38-126); Aspartate Aminotransferase 41 IU/L (14-36); Basophils Absolute Auto 0 /uL (0-100); Basophils Percent Auto 0.3 % (0-2); Bilirubin Total 1.3 mg/dL (0.2-1.3); Blood Urea Nitrogen 17 mg/dL (7-17); Calcium 9.5 mg/dL (8.4-10.2); Carbon Dioxide 22 mmol/L (22-32); Chloride 103 mmol/L (98-107); Creatine Kinase 72 U/L (30-135); Eosinophils Absolute Auto 100 /uL (0-450); Eosinophils Percent Auto 1.5 % (2-4); Estimated Glomerular Filt Rate > 60.0 mL/min (>60); Globulin 2.7 g/dL (1.7-4.1); Glucose 117 mg/dL (80-110); HEMOLYSIS < 15 (0-50); Hematocrit 43.2 % (36-46); Hemoglobin 13.3 g/dL (12.0-16.0); Lipase 46 U/L (23-300); Lymphocytes Absolute Auto 2000 /uL (1100-4500); Lymphocytes Percent Auto 33.2 % (25-40); Mean Corpuscular HGB Conc 30.8 % (30-36); Mean Corpuscular Volume 77.9 fL (80-100); Monocytes Absolute Auto 700 /uL (0-900); Monocytes Percent Auto 11.7 % (3-14); Neutrophils Absolute Auto 3100 /uL (1500-7000); Neutrophils Percent Auto 53.3 % (50-75); Platelet Count 290 X10^3/uL (150-400); Potassium 3.7 mmol/L (3.4-5.1); Red Blood Cell Count 5.55 X10^6/uL (4.0-5.2); Red Cell Distribution Width 20.1 % (11.6-14.8); Sodium 135 mmol/L (137-145); Total Protein 6.6 g/dL (6.3-8.2); White Blood Cell Count 5.9 X10^3/uL (4.5-11.0)
[2019-09-23 23:45] VITALS: BP 94/74; PULSE 176; RESP 31; O2SAT 97
[2019-09-23 23:47] LABS: Troponin I 0.013 ng/mL (0.01-0.034)
[2019-09-24] VITALS (25 sets, daily range): BP systolic 102–159; BP diastolic 61–111; PULSE 67–176; RESP 17–91; TEMP 36.1–36.6; O2SAT 94–99; BMI 26.6
[2019-09-24 00:01] LABS: NT-proBNP (BNP-Adult 18+) 3610 pg/mL (<450)
--- NOTE | 2019-09-24 00:09 | ED.ARRPALP ---
HPI - Arrhythmia/Palpitations General Chief Complaint: Arrhythmia/Palpitations Stated Complaint: SOB TEST SHOWED WEAKNESS OF HEART Time Seen by Provider: 09/24/19 00:09 Source: patient and family Mode of arrival: Wheelchair Limitations: no limitations History of Present Illness HPI narrative: 78-year-old woman with a history of atrial fibrillation and poor medical compliance presents with increasing dyspnea. She had an echocardiogram at [facility] on September 19 that shows severe global left ventricular systolic dysfunction with an ejection fraction at 15%, severely dilated right ventricle. She notes that she has been more short of breath and she has had more lower extremity edema. She does not have any sensation that her heart is going fast and has no chest pain. Despite all evidence to the contrary, she has convinced herself that she does not actually have any cardiac disease. She tends to avoid doctors avoids following Western medication recommendations and prefers her after school program teacher and Eastern medication practitioners. Her caregiver and her son are present additional issues include medical noncompliance. Her caregiver states that she perhaps takes her metoprolol and her Eliquis twice a week. She apparently has a significant amount of anxiety and agitation particularly at night. 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 She apparently will wonder about the house and fall asleep as soon as she sits down or goes to the bathroom and then falls on the floor. Her son is worried that she may be over using Vicodin. Apparently Dr. Eaton has stopped prescribing this and then she saw her orthopedic surgeon who did replaced hips 15 years ago who gave her prescription for Vicodin but refused to give her a second prescription. Son is hoping that certified social workers in health care can get involved and requesting help with more home care on discharge and wondering if psychiatric consult while she is in the hospital might be arranged to help with the insomnia agitation and wandering at night. He is concerned that she does in fact have significant psychiatric issues that have not been defined nor addressed because she is unwilling to discuss any of this.. Related Data Home Medications Medication Instructions Recorded Confirmed Vitamin C 1 tab PO DAILY 09/20/18 09/24/19 hydrocodone-acetaminophen 1 tab PO 1-2XD PRN 09/20/18 09/24/19 magnesium 1 tab PO DAILY 09/20/18 09/24/19 multivitamin 1 tab PO DAILY 09/20/18 09/24/19 potassium 1 tab PO DAILY 09/20/18 09/24/19 torsemide DAILY 09/24/19 Previous Rx's Medication Instructions Recorded metoprolol tartrate 25 mg PO BID #60 tab 09/21/18 apixaban [Eliquis] 5 mg PO BID #30 tab 11/08/18 Allergies Allergy/AdvReac Type Severity Reaction Status Date / Time No Known Drug Allergies Allergy Verified 09/23/18 11:17 Review of Systems Review of Systems Narrative: Pertinent positive and negative findings as per HPI Remainder of review of systems is otherwise unremarkable for Constitutional: Fevers, chills, weakness ENT: No sore throat, neck pain, ear pain CV: Chest pain, Respiratory: Cough, wheeze, dyspnea GI: Nausea, vomiting, diarrhea, change in bowel habits, black or bloody stools : Dysuria, hematuria, flank pain MS: Muscle weakness, numbness, joint swelling or warmth Skin: Rashes, nonhealing lesions Neuro: Syncope, dizziness, tingling Patient History Medical History Atrial fibrillation (Chronic) Chronic headaches (Chronic) Congestive heart failure (CHF) (Chronic) Surgical History H/O: hysterectomy (Chronic) History of bilateral hip replacements (Resolved) History of hysterectomy (Resolved) Family History Mother No problems noted. Father Cancer Social History marital status: household members: spouse Smoking Status: Never smoker alcohol intake: current substance use type: does not use Smoking Status: Never smoker alcohol intake frequency: a few times a week Substance Use Type: does not use Exam Narrative Exam Narrative: General: , in no acute distress. Slightly dyspneic at the end of a full sentence with rambling and tangential answers to questions. Well-nourished well-developed HEENT: Moist mucous membranes, normal sclera with reactive pupils, Neck: Mild JVD, supple Respiratory: Lungs with bibasilar crackles to mid lung page, no rhonchi and no significant wheeze. Full and symmetrical air movement Cardiac: Rapid and irregular with a 3/6 systolic ejection murmur Abdomen: Soft nontender good bowel tones, no flank pain Skin: Warm and dry, no rashes Neurologic: Grossly neurologically intact with no obvious asymmetries or abnormalities Extremities: No trauma, well perfused Psych: Cooperative, distracted with limited insight Initial Vital Signs Initial Vital Signs: Vital Signs Temperature 98.1 F 09/23/19 22:50 Pulse Rate 161 H 09/23/19 22:50 Respiratory Rate 28 H 09/23/19 22:50 Blood Pressure 125/70 09/23/19 22:50 Pulse Oximetry 97 09/23/19 22:50 Course Orders Ordered: ED Orders 09/23/19 23:04 EKG-12 Lead Stat 09/23/19 23:08 XR chest 1V Stat 09/23/19 23:18 BNP [NT-proBNP (BNP-Adult 18+)] Stat Complete Blood Count AUTO DIFF Stat Comprehensive Metabolic Panel Stat Lipase Stat Troponin & CK Cardiac Panel Stat 09/24/19 01:15 Magnesium Routine Education, smoking cessation ONGOING 09/24/19 01:20 Consult to Discharge Planning Routine 09/24/19 01:45 Urinalysis and Microscopic Stat Urine Drug Screen, Rapid Stat 09/24/19 06:00 Basic Metabolic Panel Routine Complete Blood Count AUTO DIFF Routine Lipid Panel Routine NT-proBNP (BNP-Adult 18+) Routine Thyroid Stimulating Hormone Routine Acetaminophen (Tylenol) 650 mg PO Q6HR PRN PRN Reason: Fever/Mild Pain (1-3) Al Hydrox/Mg Hydrox/Simethicone (Maalox Plus) 30 ml PO Q6HR PRN PRN Reason: Dyspepsia Apixaban (Eliquis) 5 mg PO BID PAUL Aspirin (Aspirin Ec) 81 mg PO DAILY PAUL Calcium Carbonate (Tums) 1,000 mg PO Q4HR PRN PRN Reason: Dyspepsia Furosemide (Lasix) 40 mg PO DAILY PAUL DILTIAZEM (Diltiazem 125 Mg/125 [id number]) 125 mg in 125 mls @ 5 mls/hr IV TITRATE PAUL; Protocol Last Titration: 09/24/19 01:15 Dose: 5 mg/hr, 5 mls/hr Documented by: Admin: 09/24/19 00:34 Dose: 5 mg/hr, 5 mls/hr Documented by: ADELFO Metoprolol Tartrate (Lopressor) 25 mg PO BID [facility] Naloxone HCl (Narcan) 0.2 mg IV Q2MIN PRN PRN Reason: Opiate Reversal Ondansetron HCl (Zofran) 4 mg IV Q8HR PRN PRN Reason: Nausea And Vomiting Potassium Chloride (Klor-Con M20) 40 meq PO NOW PAUL Discontinued Medications Diltiazem HCl (Cardizem) 10 mg IV NOW ONE Stop: 09/24/19 00:16 Last Admin: 09/24/19 00:33 Dose: 10 mg Documented by: ADELFO Furosemide (Lasix) 80 mg IV NOW ONE Stop: 09/24/19 00:16 Last Admin: 09/24/19 01:01 Dose: 80 mg Documented by: ADELFO Lorazepam (Ativan) 0.5 mg IV NOW ONE Stop: 09/24/19 00:16 Last Admin: 09/24/19 00:27 Dose: 0.5 mg Documented by: ADELFO Metoprolol Tartrate (Lopressor) 25 mg PO NOW ONE Stop: 09/24/19 02:16 Last Admin: 09/24/19 02:34 Dose: 25 mg Documented by: KRISTY Vital Signs Vital signs: Vital Signs - 8 hr 09/23/19 22:50 09/23/19 23:06 09/23/19 23:15 Temperature 98.1 F Pulse Rate 161 H 169 H 167 H Respiratory Rate 28 H 25 H 30 H Blood Pressure 125/70 106/74 Pulse Oximetry 97 97 95 09/23/19 23:30 09/23/19 23:45 09/24/19 00:00 Temperature Pulse Rate 168 H 176 H 166 H Respiratory Rate 33 H 31 H 34 H Blood Pressure 91/71 94/74 Pulse Oximetry 96 97 98 09/24/19 00:01 09/24/19 00:15 09/24/19 00:16 Temperature Pulse Rate 170 H 171 H 168 H Respiratory Rate 34 H 34 H 38 H Blood Pressure 118/89 159/111 H Pulse Oximetry 97 98 95 09/24/19 00:30 09/24/19 00:31 09/24/19 00:32 Temperature Pulse Rate 173 H 161 H 161 H Respiratory Rate 28 H 35 H 37 H Blood Pressure 102/75 107/74 Pulse Oximetry 98 96 95 09/24/19 00:33 09/24/19 00:35 09/24/19 00:40 Temperature Pulse Rate 176 H 163 H 153 H Respiratory Rate 26 H 21 Blood Pressure 107/74 119/77 112/74 Pulse Oximetry 98 96 09/24/19 00:45 09/24/19 00:50 09/24/19 00:55 Temperature Pulse Rate 127 H 143 H 117 H Respiratory Rate 30 H 32 H 31 H Blood Pressure 127/84 122/88 118/76 Pulse Oximetry 94 96 97 09/24/19 01:00 09/24/19 01:06 09/24/19 01:10 Temperature Pulse Rate 130 H 123 H 125 H Respiratory Rate 36 H 32 H 38 H Blood Pressure 108/80 144/83 H 113/78 Pulse Oximetry 95 97 97 MDM - Arrhythmia/Palpitations Medical Records Attestation: I reviewed the patient's medical records. Lab Data Attestation: I reviewed the patient's lab results. Result diagrams: 09/23/19 23:18 09/23/19 23:18 Labs: Lab Results 09/23/19 09/23/19 09/23/19 Range/Units 23:18 23:18 23:18 WBC 5.9 (4.5-11.0) X10^3/uL RBC 5.55 H (4.0-5.2) X10^6/uL Hgb 13.3 (12.0-16.0) g/dL Hct 43.2 (36-46) % MCV 77.9 L (80-100) fL MCH 24.0 L (26-34) PG MCHC 30.8 (30-36) % RDW 20.1 H (11.6-14.8) % Plt Count 290 (150-400) X10^3/uL Neut % (Auto) 53.3 (50-75) % Lymph % (Auto) 33.2 (25-40) % Garfield % (Auto) 11.7 (3-14) % Eos % (Auto) 1.5 L (2-4) % Baso % (Auto) 0.3 (0-2) % Neut # (Auto) 3100 (0699-9091) /uL Lymph # (Auto) 2000 (2775-7594) /uL Garfield # (Auto) 700 (0-900) /uL Eos # (Auto) 100 (0-450) /uL Baso # (Auto) 0 (0-100) /uL RBC Morphology See below Anisocytosis 3+ H Sodium 135 L (137-145) mmol/L Potassium 3.7 (3.4-5.1) mmol/L Chloride 103 (98-107) mmol/L Carbon Dioxide 22 (22-32) mmol/L BUN 17 (7-17) mg/dL Creatinine 0.63 (0.52-1.04) mg/dL Estimated GFR > 60.0 (>60) mL/min BUN/Creatinine Ratio 27.0 H (6-22) Glucose 117 H (80-110) mg/dL Calcium 9.5 (8.4-10.2) mg/dL Magnesium (1.6-2.3) mg/dL Total Bilirubin 1.3 (0.2-1.3) mg/dL AST 41 H (14-36) IU/L ALT 37 H (<35) IU/L Alkaline Phosphatase 160 H (38-126) U/L Total Creatine Kinase 72 (30-135) U/L CK-MB (CK-2) TNP CK-MB (CK-2) Rel Index TNP Troponin I 0.013 (0.01-0.034) ng/mL NT-Pro-B Natriuret Pep 3610 H (<450) pg/mL Total Protein 6.6 (6.3-8.2) g/dL Albumin 3.9 (3.5-5.0) g/dL Globulin 2.7 (1.7-4.1) g/dL Albumin/Globulin Ratio 1.4 (1.0-2.8) Lipase 46 (23-300) U/L COVID-19 PCR (Negative) 09/23/19 09/24/19 Range/Units 23:18 00:07 WBC (4.5-11.0) X10^3/uL RBC (4.0-5.2) X10^6/uL Hgb (12.0-16.0) g/dL Hct (36-46) % MCV (80-100) fL MCH (26-34) PG MCHC (30-36) % RDW (11.6-14.8) % Plt Count (150-400) X10^3/uL Neut % (Auto) (50-75) % Lymph % (Auto) (25-40) % Garfield % (Auto) (3-14) % Eos % (Auto) (2-4) % Baso % (Auto) (0-2) % Neut # (Auto) (7267-0019) /uL Lymph # (Auto) (1325-6003) /uL Garfield # (Auto) (0-900) /uL Eos # (Auto) (0-450) /uL Baso # (Auto) (0-100) /uL RBC Morphology Anisocytosis Sodium (137-145) mmol/L Potassium (3.4-5.1) mmol/L Chloride (98-107) mmol/L Carbon Dioxide (22-32) mmol/L BUN (7-17) mg/dL Creatinine (0.52-1.04) mg/dL Estimated GFR (>60) mL/min BUN/Creatinine Ratio (6-22) Glucose (80-110) mg/dL Calcium (8.4-10.2) mg/dL Magnesium 2.0 (1.6-2.3) mg/dL Total Bilirubin (0.2-1.3) mg/dL AST (14-36) IU/L ALT (<35) IU/L Alkaline Phosphatase (38-126) U/L Total Creatine Kinase (30-135) U/L CK-MB (CK-2) CK-MB (CK-2) Rel Index Troponin I (0.01-0.034) ng/mL NT-Pro-B Natriuret Pep (<450) pg/mL Total Protein (6.3-8.2) g/dL Albumin (3.5-5.0) g/dL Globulin (1.7-4.1) g/dL Albumin/Globulin Ratio (1.0-2.8) Lipase (23-300) U/L COVID-19 PCR Negative (Negative) Imaging Data Chest x-ray: Attestation: I personally reviewed and interpreted this imaging study as follows: My Impression: For consistent with congestive heart failure with increased cephalization, cardiomegaly. No pneumothorax and no infiltrates to suggest acute pneumonia ECG Data Attestation: I personally reviewed and interpreted this ECG as follows: Interpretation: Atrial fibrillation at a rate of [address] depression MDM Narrative Medical decision making narrative: 78-year-old woman with acute congestive heart failure secondary to uncontrolled atrial fibrillation. no troponin leak at this time. No evidence of infection Request that her caregiver stay with her this evening because she has ?separation anxiety and ?. Son requests social service consult while inpatient, suggestions for help with home health, consideration of psychiatric consultation for medical management of her nighttime agitation Heart rate is coming down with Cardizem drip. 80 mg of IV Lasix is given. Half a mg of IV Ativan to help with her agitation. Oxygen saturations will be monitored. Admit to our hospitalist service Discharge Plan Departure Patient Disposition: Admitted As Inpatient Admit Date/Time: 09/24/19 01:27 Admit Provider: Rashaun White
[2019-09-24] MEDS: LORazepam 2 MG/ML INJ 0.5 MG IV (00:27)
[2019-09-24] MEDS: dilTIAZem 5 MG/ML SDV 10 MG IV (00:33)
[2019-09-24] MEDS: DILTIAZEM 125 MG/125 ML PIGGYBACK IV (00:34)
[2019-09-24 00:51] LABS: Anisocytosis 3+
[2019-09-24] MEDS: FUROSEMIDE 100 MG/10 ML VIAL 80 MG IV (01:01)
[2019-09-24 01:10] LABS: COVID19 -Nasal RAPID Negative (Negative)
--- NOTE | 2019-09-24 01:56 | P.HP_ITS ---
History of Present Illness History of Present Illness Date Patient Seen: 09/24/19 Time Patient Seen: 02:34 Chief complaint: SOB Narrative: Ms Tasha Harvey is a 78-year-old female with past medical history of CHFrEF with an EF of 15%, paroxysmal AFib who presents to the ER with shortness of breath and leg swelling. The patient reports that over the last 2 days she has had increasing dyspnea and leg swelling and does not know why. She is accompanied by her caregiver who indicates the patient is presently at her baseline mentation with restlessness and agitation. The caregiver also states the patient has not been taking her medications as usual and when confronted the patient acknowledges same. Denies recent illness or COVID-19 exposures. She reports no headache, dizziness, nasal congestion or sore throat. She denies chest pain has had occasional palpitations as apparently unaware of when she goes into rapid atrial fibrillation. Patient underwent echocardiogram at [facility] on 09/20/2019 which is identifies severe global left ventricular systolic dysfunction, left ventricular ejection fraction of 15%. The right ventricle is dilated and severely hypokinetic. There severe functional tricuspid regurgitation due to annular dilation and leaflet tethering and severely elevated central venous pressure. She was recently admitted insert 2018 under similar circumstances and prior to that September of 2018. Patient denies recent illness with no fevers or chills and no known COVID-19 exposures. She denies chest pain endorses occasional palpitations. She has had increasing shortness of breath with chronic cough but denies wheezing. She reports no abdominal pain, nausea vomiting, diarrhea or constipation. She reports no urinary difficulties. On arrival to the ER the patient is afebrile with temperature 98.1?, heart rate of 123 that had peaked at 176 during hot ER stay. Blood pressure is 110/77 with respiratory rate of 23 and oxygen saturation 94 on room air. Chest x-rays obtained shows cardiomegaly and pulmonary vascular congestion. On laboratory analysis she has white count of 5.9, hemoglobin of 13.3, hematocrit of 43.2 and platelets 290. Her electrolytes are within normal limits however potassium is only 3.7 and she has a BUN of 17 and creatinine 0.63. Her nonfasting glucose is 117. She has a total bilirubin of 1.3, AST of 41, ALT of 37 alkaline phosphatase of 160. She has a total CK is 72 in her troponin is 0.013. Her proBNP is 3610. In the ER the patient is administered a diltiazem bolus and started on a diltiazem drip and administered Lasix 80 mg. She is also given lorazepam 0.5 mg for agitation and restlessness. The patient is admitted to the medicine service for exacerbation of heart failure related to atrial fibrillation with rapid ventricular response. Patient History Medical History Atrial fibrillation (Chronic) Chronic headaches (Chronic) Congestive heart failure (CHF) (Chronic) Surgical History H/O: hysterectomy (Chronic) History of bilateral hip replacements (Resolved) History of hysterectomy (Resolved) Family & Social History Family History Mother No problems noted. Father Cancer Social History: household members spouse Safety & Behavioral: Feels Safe in Current Yes Environment Been Physically Hurt or No Threatened By a Person Tobacco & Substance use: Smoking Status Never smoker alcohol intake current alcohol intake frequency a few times a week Substance Use Type does not use Meds Home Medications and Allergies Home Medications Medication Instructions Recorded Confirmed Type Vitamin C 1 tab PO DAILY 09/20/18 09/24/19 History hydrocodone-acetaminophen 1 tab PO 1-2XD PRN 09/20/18 09/24/19 History magnesium 1 tab PO DAILY 09/20/18 09/24/19 History multivitamin 1 tab PO DAILY 09/20/18 09/24/19 History potassium 1 tab PO DAILY 09/20/18 09/24/19 History metoprolol tartrate 25 mg PO BID #60 tab 09/21/18 09/24/19 Rx apixaban [Eliquis] 5 mg PO BID #30 tab 11/08/18 09/24/19 Rx torsemide DAILY 09/24/19 History Allergies Allergy/AdvReac Type Severity Reaction Status Date / Time No Known Drug Allergies Allergy Verified 09/23/18 11:17 Review of Systems Review of Systems ROS: Yes All systems reviewed with the patient and are negative except as otherwise documented Exam Vital Signs (past 8 hours): - 09/23/19 22:50 09/23/19 23:06 09/23/19 23:15 Temperature 98.1 F Pulse Rate 161 H 169 H 167 H Respiratory Rate 28 H 25 H 30 H Blood Pressure 125/70 106/74 Pulse Oximetry 97 97 95 09/23/19 23:30 09/23/19 23:45 09/24/19 00:00 Temperature Pulse Rate 168 H 176 H 166 H Respiratory Rate 33 H 31 H 34 H Blood Pressure 91/71 94/74 Pulse Oximetry 96 97 98 09/24/19 00:01 09/24/19 00:15 09/24/19 00:16 Temperature Pulse Rate 170 H 171 H 168 H Respiratory Rate 34 H 34 H 38 H Blood Pressure 118/89 159/111 H Pulse Oximetry 97 98 95 09/24/19 00:30 09/24/19 00:31 09/24/19 00:32 Temperature Pulse Rate 173 H 161 H 161 H Respiratory Rate 28 H 35 H 37 H Blood Pressure 102/75 107/74 Pulse Oximetry 98 96 95 09/24/19 00:33 09/24/19 00:35 09/24/19 00:40 Temperature Pulse Rate 176 H 163 H 153 H Respiratory Rate 26 H 21 Blood Pressure 107/74 119/77 112/74 Pulse Oximetry 98 96 09/24/19 00:45 09/24/19 00:50 09/24/19 00:55 Temperature Pulse Rate 127 H 143 H 117 H Respiratory Rate 30 H 32 H 31 H Blood Pressure 127/84 122/88 118/76 Pulse Oximetry 94 96 97 09/24/19 01:00 09/24/19 01:06 09/24/19 01:10 Temperature Pulse Rate 130 H 123 H 125 H Respiratory Rate 36 H 32 H 38 H Blood Pressure 108/80 144/83 H 113/78 Pulse Oximetry 95 97 97 Oxygen Delivery Method Room Air Narrative Exam Narrative: GENERAL APPEARANCE: well developed, adequately nourished female who is restless and agitated but in no acute distress. HEENT: Normocephalic, PERRLA, conjunctiva clear, no rhinorrhea, mucous membranes are moist and pink without lesions or exudate. NECK/THYROID: neck supple, marked JVD, no carotid bruit, no thyromegaly, trachea midline. LYMPH NODES: no cervical or supraclavicular lymphadenopathy. SKIN: [place], warm and dry, no visible lesions, rashes, ulcerations or petechiae. HEART: Irregularly irregular rhythm, laterally displaced PMI, S1-S2, 2/6 systolic murmur, no rubs or gallops, brisk capillary refill, 1+ peripheral edema LUNGS: Fine crackles bilateral bases without coarseness or wheezing, dry nonproductive cough present CHEST: Symmetrical movement, no accessory muscle use, good tidal volume. ABDOMEN: Soft, no distention, no abdominal tenderness, no organomegaly, no flank or suprapubic tenderness, active bowel tones. BACK: nontender to palpation, no CVA tenderness on percussion EXTREMITIES: moves all extremities, strength is 5/5 and symmetrical, no deformities or joint effusions. NEUROLOGIC: AAO to person and place only, no focal neurologic deficits, cranial nerves II-XII grossly intact, sensation intact to light touch, hearing grossly normal to speech. PSYCH: Poor judgment, limited insight, hyperactive, restless and fidgety, cooperative. Objective Labs Result Diagrams: 09/23/19 23:18 09/23/19 23:18 Labs: Laboratory Results - last 24 hr 09/23/19 09/23/19 09/23/19 23:18 23:18 23:18 WBC 5.9 RBC 5.55 H Hgb 13.3 Hct 43.2 MCV 77.9 L MCH 24.0 L MCHC 30.8 RDW 20.1 H Plt Count 290 Neut % (Auto) 53.3 Lymph % (Auto) 33.2 [place] % (Auto) 11.7 Eos % (Auto) 1.5 L Baso % (Auto) 0.3 Neut # (Auto) 3100 Lymph # (Auto) 2000 [place] # (Auto) 700 Eos # (Auto) 100 Baso # (Auto) 0 RBC Morphology See below Anisocytosis 3+ H Sodium 135 L Potassium 3.7 Chloride 103 Carbon Dioxide 22 BUN 17 Creatinine 0.63 Estimated GFR > 60.0 BUN/Creatinine Ratio 27.0 H Glucose 117 H Calcium 9.5 Magnesium Total Bilirubin 1.3 AST 41 H ALT 37 H Alkaline Phosphatase 160 H Total Creatine Kinase 72 CK-MB (CK-2) TNP CK-MB (CK-2) Rel Index TNP Troponin I 0.013 NT-Pro-B Natriuret Pep 3610 H Total Protein 6.6 Albumin 3.9 Globulin 2.7 Albumin/Globulin Ratio 1.4 Lipase 46 COVID-19 PCR 09/23/19 09/24/19 23:18 00:07 WBC RBC Hgb Hct MCV MCH MCHC RDW Plt Count Neut % (Auto) Lymph % (Auto) [place] % (Auto) Eos % (Auto) Baso % (Auto) Neut # (Auto) Lymph # (Auto) [place] # (Auto) Eos # (Auto) Baso # (Auto) RBC Morphology Anisocytosis Sodium Potassium Chloride Carbon Dioxide BUN Creatinine Estimated GFR BUN/Creatinine Ratio Glucose Calcium Magnesium 2.0 Total Bilirubin AST ALT Alkaline Phosphatase Total Creatine Kinase CK-MB (CK-2) CK-MB (CK-2) Rel Index Troponin I NT-Pro-B Natriuret Pep Total Protein Albumin Globulin Albumin/Globulin Ratio Lipase COVID-19 PCR Negative Assessment & Plan Assessment & Plan narrative: This is a 77-year-old female with past medical history of congestive heart failure with reduced ejection fraction and Paroxysmal AFib who presented with 2 days of shortness of breath and extremity swelling men to be in atrial fibrillation with RVR in decompensated heart failure. 1. Paroxysmal atrial fibrillation with rapid ventricular response, acute, present on admission, active -patient has a significant history of AFib and was most recently admitted in November of 2018 under similar conditions. Patient admittedly does not take her medications as directed including metoprolol or diuretic believed to be the cause of the current events. -echocardiogram from [facility] completed on 09/20/2019 finds severe global left ventricular systolic dysfunction EF of 15%, severely hypokinetic and dilated right ventricle, severe 5 functional tricuspid regurg elevated central v enous pressure and mitral regurgitation with valvular dysfunction related annular dilation and leaflet tethering. -potassium levels 3.7, ordered potassium 40 mEq p.o. as the patient's fluid overload and will obtain magnesium level. -patient was administered diltiazem bolus and drip initiated in the ER. Her blood pressure remains adequate will administer 25 mg of metoprolol tartrate now to be followed by regular dosing of metoprolol tartrate 25 mg twice daily. -will continue patient's Eliquis 5 mg twice daily. -Will recheck TSH, A1c, and lipid panel. 2. Acute Decompensated systolic heart failure with reduced ejection fraction present on admission, active. -heart failure exacerbated by atrial fibrillation with RVR. Patient presently denies shortness of breath or chest pain at time of encounter. -proBNP is 3610, troponin is negative at 0.013. -echocardiogram from [facility] completed on 09/20/2019 finds severe global left ventricular systolic dysfunction EF of 15%, severely hypokinetic and dilated right ventricle, severe 5 functional tricuspid regurg elevated central venous pressure and mitral regurgitation with valvular dysfunction related annular dilation and leaflet tethering. -patient received Lasix 80 mg IV in the emergency department with good diuresis. Patient continues to appear fluid overloaded with 1+ peripheral edema and bibasilar crackles -patient been noncompliant with diuretics and has been taking torsemide unknown dose daily. Ordered Lasix 40 mg daily VTE prophylaxis: Bilateral SCDs, anticoagulated on Eliquis IV fluid: Diltiazem drip. Diet: Heart healthy low-sodium Code status: FULL CODE, the patient's son is her surrogate decision maker. The patient is admitted intensive care unit on diltiazem drip for titration for heart rate. The patient is admitted as observation with expected length of stay to be less than 2 midnights. Critical care time: 40 minutes with greater than 50% in xghe-ab-odib with the patient. COVID-19 COVID-19 status: Negative Result date/Date tested (Pos, Neg/Pending): 09/24/19 Scores GCS [place] coma scale eye opening: Spontaneous Kiesha coma scale verbal response: Confused Kiesha coma scale motor response: Obey commands Kiesha coma scale total score: 14
[2019-09-24 02:01] LABS: UR Morphine/Opiate cutoff 300 Negative (Negative); Ur Creatinine 20 (Normal); Ur Specific Gravity 1.025 (Normal); Urine Amphetamines Negative (Negative); Urine Barbiturates Negative (Negative); Urine Benzodiazepines Negative (Negative); Urine Cocaine Negative (Negative); Urine MDMA Negative (Negative); Urine Methadone Negative (Negative); Urine Methamphetamines Negative (Negative); Urine Oxycodone Negative (Negative); Urine Phencyclidine Negative (Negative); Urine Tetrahydrocannabinol Negative (Negative); Urine Tricyclic Antidepressant Negative (Negative); Urine pH 5 (Normal)
[2019-09-24 02:08] LABS: RBC Urine None Seen (0-5/HPF)
[2019-09-24 02:09] LABS: Appearance Urine UA CLEAR; Bilirubin Urine UA NEGATIVE (NEGATIVE); Color Urine UA YELLOW; Glucose Urine UA NEGATIVE (Negative); Ketones Urine UA NEGATIVE (NEGATIVE); Leukocyte Esterase Urine UA NEGATIVE (NEGATIVE); Nitrite Urine UA NEGATIVE (Negative); Occult Blood Urine UA NEGATIVE (Negative); Protein Urine UA NEGATIVE (Negative); Specific Gravity Urine UA 1.015 (1.000-1.035); Urobilinogen Urine UA 0.2 E.U./dL (0.2)
[2019-09-24 02:20] LABS: Bacteria Urine Moderate (10-30); Culture Indicated Urine Specimen Cultured; Squamous Epithelial Cell Urine 1-5 /HPF (0-5/HPF); WBC Urine 0-1/HPF (0-5/HPF)
[2019-09-24] MEDS: METOPROLOL IR 25 MG TABLET PO ×3 (02:34→20:40)
--- NOTE | 2019-09-24 02:49 | PC.NURSE ---
Patient admitted from ER for Afib with RVR. Dilt drip running at 5ml/hr on arrival. Patient is extremely confused, ranting/mumbling to self, is very agitated and restless. Per caregiver, this is her baseline. Patient received IV lasix in ER and is up to bedside commode every 10mins or less. Patient will attempt to jump out of bed, is impulsive- bed alarm is on. Medications were reviewed with caregiver and son, they say she takes her meds inconsistently when she feels like it.
[2019-09-24 05:25] LABS: Add Manual Diff / Slide Review NO; Basophils Absolute Auto 100 /uL (0-100); Basophils Percent Auto 1.3 % (0-2); Eosinophils Absolute Auto 100 /uL (0-450); Eosinophils Percent Auto 0.9 % (2-4); Hemoglobin 13.5 g/dL (12.0-16.0); Lymphocytes Absolute Auto 2100 /uL (1100-4500); Lymphocytes Percent Auto 31.1 % (25-40); Mean Corpuscular HGB Conc 30.7 % (30-36); Mean Corpuscular Hemoglobin 24.2 PG (26-34); Mean Corpuscular Volume 78.8 fL (80-100); Monocytes Absolute Auto 700 /uL (0-900); Monocytes Percent Auto 10.9 % (3-14); Neutrophils Absolute Auto 3800 /uL (1500-7000); Neutrophils Percent Auto 55.8 % (50-75); Platelet Count 270 X10^3/uL (150-400); Red Blood Cell Count 5.58 X10^6/uL (4.0-5.2); Red Cell Distribution Width 19.9 % (11.6-14.8); White Blood Cell Count 6.8 X10^3/uL (4.5-11.0)
[2019-09-24 05:31] LABS: BUN Creatinine Ratio 24.3 (6-22); Blood Urea Nitrogen 17 mg/dL (7-17); Calcium 9.6 mg/dL (8.4-10.2); Carbon Dioxide 28 mmol/L (22-32); Chloride 100 mmol/L (98-107); Cholesterol 118 mg/dL (140-199); Estimated Glomerular Filt Rate > 60.0 mL/min (>60); Glucose 136 mg/dL (80-110); HDL Cholesterol 39 mg/dL (40-60); HEMOLYSIS < 15 (0-50); LDL Cholesterol Calculated 57 mg/dL (<100); Potassium 3.5 mmol/L (3.4-5.1); Sodium 137 mmol/L (137-145); Triglycerides 109 mg/dL (35-150)
[2019-09-24 05:40] LABS: NT-proBNP (BNP-Adult 18+) 3540 pg/mL (<450)
[2019-09-24 06:03] LABS: Thyroid Stimulating Hormone 1.34 uIU/mL (0.47-4.68)
[2019-09-24] MEDS: FUROSEMIDE 40 MG TABLET PO (09:07)
[2019-09-24] MEDS: APIXABAN 5 MG TABLET PO ×2 (09:07→20:40)
[2019-09-24] MEDS: POTASSIUM CHLORIDE 20 MEQ TAB 40 MEQ PO (11:47)
--- NOTE | 2019-09-24 13:26 | SLP.IPNOTE ---
Attempted cognitive eval. Pt required Nsg care. Will re-attempt this afternoon as able.
--- NOTE | 2019-09-24 14:32 | CM.DANOTE ---
DCP Assessment: EMR reviewed Patient is a 78 yr old female who was admitted for Afib with RVR. CM/RN attempted to meet with patient at the bedside but patient was not wanting to meet with CM/RN at this time. Patient asked CM/RN to leave. CM/RN spoke with patients daughter Kirsten Wilson at [phone] about her mothers status. Patient remains confused and agitated. Patient is non-compliant with her medications at home and according to patients daughter is struggling with self care. CM/RN spoke with Dr. Ashraf and since patient is an OBS patient HH services is recommended for patient at d/c for nursing services for medication management and medical equipment sales. Cm/RN got F2F signed. Pending cognitive eval and possible MRI. I: Medicare and AARP Plan: D/C home with [facility] ESP[place]A and family when medically stable. Hazel Crain RN Discharge Planning/Care Management CM Discharge Assessment Start: 09/24/19 14:29 Freq: Status: Active Protocol: Document 09/24/19 14:29 HS (Rec: 09/24/19 14:32 HS [id number]) Discharge Planning Assessment Assigned Rigger Helper Hazel Crain RN DPOA/Assigned Designee Name DaughterReilly Wilson Contact Information [phone] Advance Directives? Yes History Provided By Patient,Family Member,Medical Record Has Patient been admitted in last 30 No days? Prior Living Arrangements House Household Members spouse Type of transporation used prior to Relies on Others admit Independent with ADL's No Needs Assistance With Bathing,Grooming,Toileting, Managing Medications,Home Chores / Shopping Caregiver for Another No DME Already Rented / Owned FWW / Walker Patient/Family Preference Home with Home Health Discharge Plan Home with Home Health Referrals Initiated Home Health If patient plan is home with home health Yes : Has signed face to face form been completed? Whiteboard Updated in Patient Room with Yes name and ext. # of Rigger Helper Review Status In Process Next Review Type Continued Stay Review
--- NOTE | 2019-09-24 14:45 | PC.NURSE ---
Shift Note Assumed care of pt at 0300, pt very restless and agitated, requiring frequent reorientation and repositioning. Up to void via BSC about every 30 min. Speech is rambling and often noncoherent. Able to answer some questions but is very forgetful. Able to state her name and date as well as the fact that she is in [place]. Does not know why she is in the hospital despite frequent reorientation. Diltiazem gtt infusing at 5 mg/hr on assessment, titrated to off at 0535 and provider notified. HR in the 80-90s, afib. Denies shortness of breath, denies chest pain. Pt less restless during the day but continues to be impulsive and forgetful. Speech is clearer. Pt took morning meds without issue, crushed meds per pt request. Declined to work with speech therapy this morning stating I don't know who authorized this, I'm not doing this. Pt's daughter and son currently at bedside, pt visibly calmer and is now willing to work with speech therapy for cog eval. Speech therapist currently at bedside. Bed alarm is on.
[2019-09-24] MEDS: LOSARTAN 25 MG TABLET 12.5 MG PO (16:01)
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
--- NOTE | 2019-09-24 19:10 | PC.NURSE ---
Addendum entered by Mayte Garcia R.N. 09/25/19 02:24: Pt continues to thrash and kick, HR 108-135, higher when kicking more. Call light within reach, will continue to monitor. Addendum entered by Mayte Garcia R.N. 09/25/19 01:25: Pt is thrashing and kicking while asleep, heart rate is continuously running from 125-158's, provider notified and stated that if this continues he will place an order for an additional 5mg IV metoprolol. Notified provider ALEX Byers that pt heart rate has been sustaining from 125-160 for the last hour. Order placed for metoprolol, will administer and monitor. Addendum entered by Mayte Garcia R.N. 09/24/19 20:55: Pt is hyperfixated on her medications, when she will go home, wants medications for sleep, ativan for anxiety, and something to prevent constipation. She called her and asked that I speak to him regarding who will be giving her the medications tomorrow when she gets home. expressed concern that pt is being released from the hospital tomorrow. I explained that we do not know when she will be released and it will not be before the doctors complete all of the necessary tests. was relieved by that response and ended phone call with pt. Will continue to monitor. Original Note: Evening shift note Pt daughter and son at bedside, pt is calm while family is present, but does ramble and is often incoheret. Pt is able to state her name, date and where she is. Able to answer basic questions, but becomes forgetful, repetitive and gets off topic, Does not know why she is in the hospital despite frequent reorientation. Pt is impulsive and forgetful, bed alarm is on. HR is in the 80-90's with Dilt gtt off 0535, pt denies SOB or chest pain. After family left, pt became very restless and agitated, requiring frequent reorientation and repositioning. Up to chair with alarm on, during moving to chair this nurse noted that pt was very clingy with her purse. When pt sat down with her purse this nurse was able to see two pill bottles in her purse. When asked if I could see them pt stated no. I then told Charge nurse Joselyn, who came in and was able to get pt to give her the pill bottles. One bottle was an empty bottle for vicodin 5/325, the second bottle was a current rx for vicodin with 36 pills of 5/325, which were sent to the pharmacy for holding until pt leaves (per hospital policy). Explained to pt that the hospital will provide the medications ordered for her and that she can have her own medications when she goes home. Pt seems to be very fixated on the medication and the fact that it is not in her purse, she is currently on the phone with her son, yelling about the medication. Will continue to monitor
[2019-09-24] MEDS: QUETIAPINE 25 MG TABLET 12.5 MG PO (21:47)
[2019-09-24] MEDS: MELATONIN 3 MG TABLET 6 MG PO (21:47)
[2019-09-25] VITALS (7 sets, daily range): BP systolic 102–107; BP diastolic 20–70; PULSE 60–130; RESP 18–21; TEMP 35.9–36.6; O2SAT 93–100
[2019-09-25] MEDS: METOPROLOL TARTRATE 5 MG/5 ML INJ IV (01:38)
[2019-09-25] MEDS: ACETAMINOPHEN 325 MG TABLET 650 MG PO (04:06)
--- NOTE | 2019-09-25 04:51 | PC.NURSE ---
0450-Extensive discussion w/Elder BARONE with concerns for patient's agitation and exhibiting symptoms of ICU delirium; patient remains tachycardic w HR 100s-120s and in Afib. Patient restless, mumbles speech and exhibits difficulty following simple commands, opens eyes to voice does voluntarily move bilateral extremities; constantly pulling off monitoring equipment, intermittently shouting for help, concern for patient safety as patient is high fall risk-close monitoring for safety. no new orders at this time.
--- NOTE | 2019-09-25 08:27 | PC.NURSE ---
PT POUNDING TABLE AND CALLING OUT TO GET STAFF ATTENTION- UPON ENTRY TO ROOM - SHE APPEARED AGITATED AND RESTLESS, ASSISTED TO BR AND CHAIR SEVERAL TIMES PRIOR TO BREAKFAST- SHE IS VERY FOCUSED UPON RX THAT WAS PLACED IN THE PHARMACY PER PROTOCOL- SHE REMAINS IN AFIB 118-142 BPM, HAS TELE MONITOR PLACED ON HER BACK DUE TO REPEATED REMOVALS BY PT, SHE DENIES PAIN AND IS ALARMED IN BED AND WHILE IN CHAIR
[2019-09-25] MEDS: FUROSEMIDE 40 MG TABLET PO (08:37)
[2019-09-25] MEDS: APIXABAN 5 MG TABLET PO (08:37)
[2019-09-25] MEDS: METOPROLOL IR 25 MG TABLET PO (08:37)
[2019-09-25] MEDS: POTASSIUM CHLORIDE 20 MEQ TAB 40 MEQ PO (08:37)
[2019-09-25] MEDS: LOSARTAN 25 MG TABLET 12.5 MG PO (08:38)
--- NOTE | 2019-09-25 11:32 | SLP.IPNOTE ---
EXECUTIVE SALES ASSISTANT attempted to work with pt at 11:15 this morning. Pt was seen laying in bed asleep in a relaxed position. No family was in the room with her. EXECUTIVE SALES ASSISTANT entered the room to attempt to get pt up for treatment. EXECUTIVE SALES ASSISTANT attempted to get the pt awake and alert for 15 minutes, but pt continued to sleep and did not want to participate in treatment. EXECUTIVE SALES ASSISTANT then left the room to check in with nurse and see if there have been any changes. Discharge orders are in place for pt at this time. If pt does not discharge today, ST will attempt treatment tomorrow. Sendy Can M.A., [facility]-EXECUTIVE SALES ASSISTANT
--- NOTE | 2019-09-25 15:22 | PM.DS.1 ---
History of Present Illness History of Present Illness Date Patient Seen: 09/24/19 Chief complaint: SOB Narrative: Written by Rashaun White HOUSEMAID: Discharge Providers Provider Date of admission: 09/24/19 01:27 Discharge Date: 09/25/19 Primary care physician: Dm Eaton MD Consults: 09/24/19 01:20 Consult to Discharge Planning Routine Comment: 09/24/19 06:58 Consult to SENIOR WINDOWS ENGINEER - Director [employer] Routine Comment: Non compliant with medications recurrent admits SENIOR WINDOWS ENGINEER Consult: Behavioral Health Assess Community Health Res Need 09/24/19 06:59 Consult to Speech Therapy Evaluate & Treat Comment: Cognitive Eval Physician Instructions: Evaluate and treat 09/25/19 14:29 Consult to Palliative Care Routine Comment: This is for the outpatient setting Consulting Provider: Chrissy Melendez Discharge provider: Radha Ulloa DO Summary Hospital Course Discharge Diagnosis: 1. Paroxysmal atrial fibrillation with rapid ventricular response, acute, present on admission. RVR resolved. 2. Acute exacerbation of systolic heart failure with reduced ejection fraction 15 %, present on admission. Acute exacerbation resolved. 3. 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 Stable. Hospital Course: 1. Paroxysmal atrial fibrillation with rapid ventricular response, acute, present on admission. RVR resolved. -Patient has a significant history of atrial fibrillation and was most recently admitted in November of 2018 under similar conditions. Patient admittedly does not take her medications as directed including metoprolol or torsemide which is believed to be the cause of the current presentation. -Echocardiogram from [facility] completed on 09/20/2019 demonstrated severe global left ventricular systolic dysfunction with EF of 15%, right ventricle is dilated and severely hypokinetic, severe functional tricuspid regurgitation due to annular dilatation and leaflet tethering with severely elevated central venous pressure, mitral annular dilatation and chordal tethering jolting in moderate mitral regurgitation. -TSH normal at 1.34. -Continued home Eliquis 5 mg twice daily. -Continued to monitor electrolytes and continued home supplementation with potassium chloride 40 mEq daily and magnesium 200 mg daily. Goal K > 4.0 and Mg > 2.0. -Received diltiazem IV and gtt in ED which is contraindicated due to reduce ejection fraction and discontinued. Continued home metoprolol tartrate 25 mg twice daily. -Discussed medication noncompliance and the patient reports that she is willing to take all her medications as prescribed. 2. Acute exacerbation of systolic heart failure with reduced ejection fraction 15 %, present on admission. Acute exacerbation resolved. -Acute congestive heart failure exacerbated by atrial fibrillation with RVR. Patient denies shortness of breath or chest pain. -ProBNP is 3610. -Initial troponin negative at 0.013. -Chest x-ray did not demonstrate any acute cardiopulmonary process. -Echocardiogram from [facility] completed on 09/20/2019 demonstrated severe global left ventricular systolic dysfunction with EF of 15%, right ventricle is dilated and severely hypokinetic, severe functional tricuspid regurgitation due to annular dilatation and leaflet tethering with severely elevated central venous pressure, mitral annular dilatation and chordal tethering jolting in moderate mitral regurgitation. -Continued strict I&Os and daily weights. Net -1.5 L. -Received Lasix 80 mg IV x1 in ED with good diuresis. Continued home torsemide 40 mg daily and potassium chloride 40 mEq daily. Continued home cardiac medications including Eliquis 5 mg twice daily, metoprolol tartrate 25 mg twice daily and started and continued losartan 12.5 mg daily (recommend slow titration up as an outpatient). 3. 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 Stable. -Previous provider discussed patient's care with her daughter at bedside who expressed concerns about her mother's declining mental status and requested further workup of her change in mentation. Recommended MR stroke protocol to rule out CVA or other intracranial process which the patient has continually refused. Previous CT brain without contrast demonstrated chronic microvascular ischemic changes. -Speech therapy performed SLUMS which the patient scored a +15/30 indicative of [id number] dementia. -Continued Seroquel 12.5 mg daily at bedtime which the patient refused to take as an outpatient as she reports ?this causes her to take her clothes off and act like a crazy person at night.? -Recommended outpatient sleep study. -Recommended palliative care consultation to be performed as an outpatient for which the patient's family is open to but unclear if the patient will follow through with this or refuse. Exam Vital Signs (past 8 hours): - 09/25/19 08:00 09/25/19 08:38 Temperature 97.4 F L Pulse Rate 98 H Respiratory Rate 21 Blood Pressure 102/66 102/66 Pulse Oximetry 97 Oxygen Delivery Method Room Air Oxygen Flow Rate 0 Narrative Exam Narrative: General: Elderly female lying in bed and in no acute distress, well-developed, well-nourished, appropriately interactive. HEENT: Normocephalic, atraumatic. External ears without defect. Pupils equal, round, and reactive to light. Anicteric sclerae, moist conjunctivae, and no lid lag. Oropharynx free of erythema and cobble stoning with moist mucosa. Neck: Supple with full range of motion. No jugular venous distension. No lymphadenopathy or thyromegaly. Cardiovascular: Irregularly irregular without murmurs, rubs, or gallops appreciated Pulmonary: Clear to auscultation bilaterally without crackles, wheezes, or rhonchi. Normal respiratory effort with no use of accessory muscles. Abdomen: Soft, bowel sounds present, nontender, nondistended. No hepatosplenomegaly or masses appreciated. Extremities: No clubbing, cyanosis, or edema. Skin: Normal temperature, turgor, and texture; no rash, ulcers, or subcutaneous nodules appreciated. Neurological: Cranial nerves grossly intact. Psychiatric: Normal mood and flat affect. Alert and oriented to person and place. Mild to moderate dementia with short-term memory recall deficit. Objective Labs Result Diagrams: 09/24/19 04:56 09/24/19 04:56 Discharge Plan Discharge Plan Patient Disposition: Home Health Service Discharge comment: You are being discharged home with home health for physical and occupational therapy, nursing, home health aide and a social science research assistant. You had atrial fibrillation with a rapid heart rate which has worsened your heart failure with EF 15%. Please continue to take your medications as prescribed. You have been referred for palliative care consultation as an outpatient. Please follow-up with your primary care physician, Dr. Eaton, in the next 1 week regarding your hospitalization. Discharge orders & Medications Prescriptions: New losartan 25 mg Tablet 12.5 mg PO DAILY Qty: 30 RF: 0 Continued Eliquis 5 mg Tablet 5 mg PO BID Qty: 30 RF: 0 torsemide 20 mg Tablet 40 mg PO DAILY RF: 0 hydrocodone-acetaminophen 5-325 mg tablet 1 tab PO 1-2XD PRN (Reason: pain) RF: 0 multivitamin Tablet 1 tab PO DAILY RF: 0 ascorbic acid (vitamin C) [Vitamin C] 1,000 mg Tablet 1,000 mg PO DAILY Qty: 0 RF: 0 magnesium 200 mg Tablet 200 mg PO DAILY Qty: 0 RF: 0 potassium 1 tab PO DAILY RF: 0 metoprolol tartrate 25 mg Tablet 25 mg PO BID Qty: 60 RF: 4 Follow up/Referrals: Dm Eaton MD [Primary Care Provider] - 3-5 Days Diet/Activity/Treatments Diet: Low-fat, Low-sodium and Low-cholesterol Diet comment: Less than 2g of sodium a day Activity: Activity as tolerated with forward wheeled walker and physical and occupational therapy Visit Report/Discharge Packet Instructions: The Mediterranean Diet and Good Health, DI for Heart Failure, DI for Atrial Fibrillation, Low-Sodium Diet Visit Report Forms: Patient Portal/API, Stroke Signs & Symptoms Discharge Data Primary Care Provider: Dm Eaton V Attending Provider: Rashaun White [place]man[place]ag Date/Time: 09/24/19 01:27
--- NOTE | 2019-09-25 15:32 | CM.DPC ---
DCP Discharge Home Per MD, pt remains medically stable to d/c home today with HH as pt has refused recommended brain MRI and no acute medical need to remain in the hospital. Per ST, pt scored 15/30 on SLUMS cog eval and shows signs of memory issues/dementia. SW called pt's son/MERRICK Dillon and spouse Jasvir and had lengthy discussion with both regarding no medical need to keep pt in the hospital but stable for outpt follow up pending pt's willingness to participate since she has long hx of medication and tx followup non compliance. Both were frustrated with pt's ongoing high medical needs and stubborness and had been hopeful that pt would have been more willing to participate in MRI and other recommendations and were hopeful pt would remain in the hospital for a few days. Son understands the need for medical necessity to remain in the hospital and agreeable with HH at d/c and will help arrange transport with spouse for the pt later this evening maybe around 1800. Spouse states pt currently has Neurologist appointment in Nov and has been getting supportive counseling via telehealth from a Psychologist out of [place]. SW encouraged spouse to inquire with Psychologist and their established estate attorney regarding his questions regarding pt's competence. SW faxed F2F, d/c summ, and orders to [facility] . MD, son, and spouse were agreeable with outpt Pall Care Order being placed for outpt follow up to further discuss Goals of Care and update POLST form since pt has been refusing meds and tx follow up. SW spoke to Pall Care MD Lowe who needs order from pt's PCP for outpt follow up since pt getting discharged today. CM Medical Records Clerk Joselyn kindly called Dr. Eaton's office and requested order to be placed for Pall Care Consult. Plan: Patient to d/c home this evening likely via spouse POV around 1800 and [facility] and Pall Care Consult to occur after discharge. BENNY Nelson
--- NOTE | 2019-09-25 17:42 | PC.NURSE ---
The patient was very upset with having chair alarm in place. You can't keep me tied up like this, it's against the law. Attempt to educate patient to safety. Reviewed pending discharge, patient asking for her prescriptions and clothing. Assist patient to get dressed. Requested that she remain in her chair until caregiver arrives. Chair alarm replaced. I left the room to check on having patients medication returned from pharmacy. While out of the room the patient removed her chair alarm and walked into the bathroom. Patient with unsteady gait, but returned to chair safely. Attempt to review discharge instructions with patient and her caregiver. The patient repeatedly dozed off during conversation. Medications reviewed with the patient's caregiver. Electronic RX sent to [facility] however caregiver reports use of [facility]. [facility] called [facility] per verbal order from Dr. Ulloa. The caregiver reports that the patient doesn't believe in Western Medicine and most days does not take her medications. Educated patient and caregiver to A-fib, heart function, and importance of medication compliance. Patient discharged via wheelchair with Sang ENNIS.
== END 2019-09-25 17:40 | disposition home health service (06) ==
LOC: ED 09-24 01:03 → ICU 09-24 07:42 → AC 09-24 12:26
PROVIDERS: Admitting Provider Nurse Practitioner Adult Health; Emergency Provider Emergency Medicine; PCP Internal Medicine; Referring Provider Emergency Medicine; Visit Provider Nurse Practitioner Adult Health
DX: I50.21 Acute systolic (congestive) heart failure (principal); I48.0 Paroxysmal atrial fibrillation; F03.91 Unspecified dementia, unspecified severity, with behavioral disturbance; Z11.59 Encounter for screening for other viral diseases
CPT/HCPCS: 36415; 71045; 80048; 80053; 80061; 80305; 81001; 82550; 83690; 83735; 83880; 84443; 84484; 85025; 87086; 87635; 87797; 92523; 93005; 96365; 96366; 96375; 99285; G0378; J1940; J2060